=== PATIENT | male | born 1935 | race Caucasian/White ===

== ENCOUNTER 2018-09-29 11:40 | Inpatient (IN) ==
[2018-09-29] MEDS ORDERED: SODIUM CHLORIDE 0.9% 500 ML IV STA (12:05)
[2018-09-29 12:28] LABS: Basophils # (auto) 0.01 K/uL (0-0.2); Eosinophils # (auto) 0.02 K/uL (0-0.5); Eosinophils % (auto) 0.1 %; Hematocrit (blood only) 36.6 % (42-52); Hemoglobin 12.6 g/dL (14.0-18.0); Immature Granulocytes # (auto) 0.09 K/uL (0.00-0.02); Immature Granulocytes % (auto) 0.4 %; Lymphocytes # (auto) 1.27 K/uL (1.2-3.4); Lymphocytes % (auto) 6.1 %; Mean Corpuscular Hgb Conc 34.4 g/dL (32-36); Mean Corpuscular Volume 90.1 fL (80-100); Monocytes # (auto) 1.13 K/uL (0.11-0.59); Monocytes % (auto) 5.4 %; Neutrophils # (auto) 18.23 K/uL (1.4-6.5); Platelet Count 196 K/uL (130-400); RDW Coefficient of Variation 13.5 % (11.5-14.5); RDW Standard Deviation 44.8 fL (36.4-46.3); Red Blood Count 4.06 M/uL (4.7-6.1); White Blood Count 20.75 K/uL (4.8-10.8)
[2018-09-29 12:42] LABS: BUN Creatinine Ratio 20.5 (10-20); Calcium 10.5 mg/dl (8.5-10.1); Est GFR (Non-African American) 31.1; Potassium 4.4 mmol/L (3.5-5.1)
[2018-09-29 12:48] LABS: Appearance Urine Turbid (Clear); Bacteria Urine Automated Negative (Negative); Bilirubin Urine Negative (Negative); Blood Urine 3+ (Negative); Color Urine Dark Yellow; Epithelial Cell Urine Auto 20-30 /lpf (0-5); Glucose Urine UA Trace (Negative); Ketones Urine Trace (Negative); Leukocyte Esterase Urine 3+ (Negative); Nitrite Urine Positive (Negative); Protein Urine 2+ (Negative); Urobilinogen Urine Negative (Negative); WBC Urine Automated >30 /hpf (0-5)
--- NOTE | 2018-09-29 13:05 | Emergency Department Note ---
Entered by Bal Wyman acting as a scribe for Nnamdi Andrews DO History of Present Illness General Chief complaint: Kidney Stone Stated complaint: KIDNEY INFECTION OR STONE/ DR REFERRAL Time Seen by Provider: 09/29/18 12:18 Source: patient History of Present Illness Onset (ago): day(s) 3 Location: right (abdomen/back) Pain Consistency: + now resolved (pain) Quality: + other (hematuria) Associated symptoms: + nausea/vomiting (resolved) and + shortness of breath (resolved); no chest pain and no fever/chills The patient is an 83 year old male who presents to the Emergency Room after referral from his PCP for hematuria. The patient reports that three days ago he developed right-sided abdominal/back pain, and he vomited. This morning he also was slightly short of breath, but his pain, vomiting, and shortness of breath are now resolved. He was sent to the ER today by his [facility] PCP due to hem aturia in the office with brown-appearing urine. He denies chest pain or fevers above 100.4. The patient reports a history of multiple hernia repair surgeries. Home Medications Home Medications Medication Instructions Recorded Confirmed Type aspirin-dipyridamole [Aggrenox] 1 cap PO BID 09/29/18 09/29/18 History atenolol 25 mg PO DAILY 09/29/18 09/29/18 History atorvastatin 10 mg PO HS 09/29/18 09/29/18 History fluticasone propion-salmeterol 1 puff INHALATION BID 09/29/18 09/29/18 History [Advair Diskus] furosemide 40 mg PO DAILY 09/29/18 09/29/18 History lisinopril 2.5 mg PO DAILY 09/29/18 09/29/18 History metformin 500 mg PO BID 09/29/18 09/29/18 History multivitamin 1 tab PO DAILY 09/29/18 09/29/18 History potassium chloride [Klor-Con M10] 10 meq PO BID 09/29/18 09/29/18 History Allergies Allergy/AdvReac Type Severity Reaction Status Date / Time No Known Allergies Allergy Verified 09/29/18 11:58 Past Med/Surg History Medical History Hypertension Surgical History History of hernia repair Family History Other Family history non-contributory Social History Feels Safe at Home: Yes Smoking Status: Never smoker Review of Systems See HPI for pertinent positives & negatives. and A total of 10 systems reviewed and were otherwise negative Physical Exam Vital Signs Vital Signs - 24 hr 09/29/18 11:45 09/29/18 13:40 Temperature 36.5 C Temperature Source Oral Sepsis Recent Fever Within 48 Hours No Sepsis New/Unexplained Change in Mental Status No Sepsis Action Taken by Nursing No Action Required Pulse Rate 80 Pulse Rate [Finger] 58 L Respiratory Rate 16 18 Blood Pressure 120/63 Blood Pressure [Left Arm] 130/70 Blood Pressure Mean 82 Blood Pressure Mean [Left Arm] 90 Pulse Oximetry 94 92 Oxygen Delivery Method Room Air Room Air CONSTITUTIONAL/VITAL SIGNS: Reviewed / noted above. GENERAL: Non-toxic in appearance. INTEGUMENTARY: Warm, dry, and [place]. HEAD: Normocephalic. EYES: without scleral icterus or trauma. ENT/OROPHARYNX: clear and moist. LYMPHADENOPATHY/NECK: Is supple without lymphadenopathy or meningismus. RESPIRATORY: Lungs clear and equal. CARDIOVASCULAR: Regular rate and rhythm. GI/ABDOMEN: Soft and nontender. No organomegaly or pulsatile mass. No rebound or guarding. Normal bowel sounds. EXTREMITIES: Warm and well perfused. BACK: No CVA tenderness. NEUROLOGICAL: Intact without focal deficits. PSYCHIATRIC: normal affect. MUSCULOSKELETAL: Normally developed with good muscle tone. Course 1221: The patient was evaluated in room C12B. A complete history and physical examination were performed. 1520: I updated the patient on current results. On repeat examination the patient is not tender to palpation of the RUQ. 1524: I consulted Mayela Martinez PA-C: [facility] Hospitalist. The patient will be reevaluated for hospitalization. Administered Medications Levofloxacin/Dextrose (Levaquin/D5w) 750 mg in 150 mls @ 100 mls/hr IV Q24H ONE Stop: 09/29/18 16:48 Last Admin: 09/29/18 15:36 Dose: 100 mls/hr Documented by: [id number] Discontinued Medications Sodium Chloride (Nss) 500 mls @ 999 mls/hr IV .Q31M STA Stop: 09/29/18 12:35 Last Infusion: 09/29/18 12:46 Dose: 0 mls/hr Documented by: [id number] Admin: 09/29/18 12:20 Dose: 999 mls/hr Documented by: [id number] Ceftriaxone Sodium (Rocephin) 1,000 mg in 50 mls @ 100 mls/hr IV NOW STA Stop: 09/29/18 13:35 Last Infusion: 09/29/18 13:57 Dose: 0 mls/hr Documented by: [id number] Admin: 09/29/18 13:24 Dose: 100 mls/hr Documented by: [id number] Medical Decision Making Differential Diagnosis Differential considered: pancreatitis, hepatitis, or acute cholecystitis, AAA, UTI, pyelonephritis, kidney stones, appendicitis, diverticulitis, shingles, bowel obstruction mesenteric ischemia, intussusception, hernia, testicular torsion. Medical Records Attestation: I reviewed the patient's medical records. Home Medications Current Medication List: was personally reviewed by me Laboratory Data Attestation: I reviewed the patient's lab results. Result diagrams: 09/29/18 12:17 09/29/18 12:17 Lab Results 09/29/18 09/29/18 09/29/18 Range/Units 12:10 12:17 12:17 WBC 20.75 H (4.8-10.8) K/uL RBC 4.06 L (4.7-6.1) M/uL Hgb 12.6 L (14.0-18.0) g/dL Hct 36.6 L (42-52) % MCV 90.1 (80-100) fL MCH 31.0 (25-34) pg MCHC 34.4 (32-36) g/dL RDW Std Deviation 44.8 (36.4-46.3) fL RDW Coeff of Belkys 13.5 (11.5-14.5) % Plt Count 196 (130-400) K/uL MPV 11.0 H (7.4-10.4) fL Immature Gran % (Auto) 0.4 % Neut % (Auto) 88.0 % Lymph % (Auto) 6.1 % Emanuel % (Auto) 5.4 % Eos % (Auto) 0.1 % Baso % (Auto) 0.0 % Immature Gran # (Auto) 0.09 H (0.00-0.02) K/uL Neut # (Auto) 18.23 H (1.4-6.5) K/uL Lymph # (Auto) 1.27 (1.2-3.4) K/uL Emanuel # (Auto) 1.13 H (0.11-0.59) K/uL Eos # (Auto) 0.02 (0-0.5) K/uL Baso # (Auto) 0.01 (0-0.2) K/uL Sodium 136 (136-145) mmol/L Potassium 4.4 (3.5-5.1) mmol/L Chloride 105 (98-107) mmol/L Carbon Dioxide 25 (21-32) mmol/L Anion Gap 6.0 (3-11) BUN 39 H (7-18) mg/dl Creatinine 1.92 H (0.6-1.4) mg/dl Est Cr Clr Drug Dosing 30.0 ml/min Est GFR ( Amer) 36.0 Est GFR (Non-Af Amer) 31.1 BUN/Creatinine Ratio 20.5 H (10-20) Glucose 224 H (70-99) mg/dl Calcium 10.5 H (8.5-10.1) mg/dl Urine Color Dark Yellow Urine Appearance Turbid H (Clear) Urine pH 5.0 (4.5-7.5) Ur Specific [place] 1.020 (1.000-1.030) Urine Protein 2+ H (Negative) Urine Glucose (UA) Trace H (Negative) Urine Ketones Trace H (Negative) Urine Blood 3+ H (Negative) Urine Nitrite Positive H (Negative) Urine Bilirubin Negative (Negative) Urine Urobilinogen Negative (Negative) Ur Leukocyte Esterase 3+ H (Negative) Urine WBC (Auto) >30 H (0-5) /hpf Urine RBC (Auto) 10-30 H (0-4) /hpf U Hyaline Cast (Auto) Not Reportable U Epithel Cells (Auto) 20-30 H (0-5) /lpf Urine Bacteria (Auto) Negative (Negative) Granular Casts >30 H (0) /lpf Urine Mucus Present H (None Prsent) Urine Yeast Not Reportable Imaging Data Radiologist's Impression: Radiology results as stated below per my review and the radiologist's interpretation: CT SCAN OF THE ABDOMEN AND PELVIS WITHOUT IV CONTRAST CLINICAL HISTORY: Right flank pain. COMPARISON STUDY: Abdominal CT dated 12/13/2015. TECHNIQUE: CT scan of the abdomen and pelvis is performed from the lung bases to the proximal femora. Images are reviewed in the axial, sagittal, and coronal planes. IV contrast was not administered for this examination as per the referring clinician. Note that the examination was performed in suboptimal fashion without oral and IV contrast. A dose lowering technique was utilized adhering to the principles of ALARA. CT DOSE: 405.66 mGy.cm FINDINGS: Lung bases: The heart is enlarged and without pericardial effusion. The coronary arteries are densely calcified. 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 Emphysema is suspected. There is bibasilar scarring/atelectasis. No airspace consolidation or pleural effusion is identified. Calcified granulomas are seen at the left lung base. There is a small hiatal hernia. Liver: The unenhanced liver is cirrhotic in morphology and heterogeneous in attenuation. There is nodularity of the hepatic surface contour. There is no intrahepatic biliary ductal dilatation. Gallbladder: The gallbladder is markedly distended. The gallbladder wall is mildly thickened and there is faint pericholecystic stranding. The appearance is concerning for acute cholecystitis. Spleen: Normal in size and attenuation. Pancreas: The unenhanced pancreas is atrophic. There are numerous parenchymal calcifications consistent with chronic pancreatitis. A 7 mm calcifications. #143 is likely located within the pancreatic duct. Adrenal glands: Unremarkable. Kidneys: A portion of the right kidney is contained within a Bochdalek hernia. The unenhanced kidneys demonstrate cortical atrophy. There is mild to moderate right-sided hydronephrosis. There is associated urothelial thickening and perinephric stranding. The right ureter is normal in caliber and no obstructing lesion/stone is identified. There are no renal calculi identified. No left-sided hydronephrosis is identified. There is no evidence of contour deforming renal mass lesion. Abdominal vasculature: The abdominal aorta is normal in course and caliber noting advanced atherosclerotic calcification. Bowel: There is mild colonic diverticulosis without CT evidence of acute diverticulitis. Fecal retention is noted throughout the colon. No bowel obstruction is seen. Bowel loops are matted against the ventral abdominal wall, likely representing adhesions. The appendix is well-visualized and normal. Peritoneum: There is no intraperitoneal free air or abdominal ascites. There is evidence of previous ventral hernia repair. There is a large fat-containing left lumbar hernia. Lymphadenopathy: There are numerous prominent retroperitoneal lymph nodes. Pelvic viscera: The prostate gland is diminutive and heterogeneous. The bladder wall is circumferentially thickened and there is mild pericystic stranding. Postoperative changes consistent with previous right inguinal herniorrhaphy. Skeletal structures: The skeletal structures are osteopenic. Moderate lumbosacral spondylosis is observed. Arthritic change is noted in the hips and sacroiliac joints. No lytic or blastic lesions are seen. IMPRESSION: 1. The gallbladder is distended. The gallbladder wall appears thickened and there is pericholecystic stranding. The appearance is concerning for acute cholecystitis. Clinical and laboratory correlation will be required. Ultrasound could be considered for further assessment if clinically warranted. 2. The bladder is circumferentially thick-walled and there is pericystic inflammation. Correlate clinically and with urinalysis for evidence of cystitis. 3. There is mild to moderate right-sided hydronephrosis, with associated urothelial thickening and perinephric stranding. No obstructing lesion/calculus is identified. Ascending urinary tract infection/pyelonephritis could have this appearance. Again, correlation with clinical findings and urinalysis will be required. 4. Cirrhotic liver morphology. 5. Findings are consistent with chronic pancreatitis. 6. 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 7. There is a large fat-containing left-sided lumbar hernia. 8. Mild colonic diverticulosis without CT evidence of acute diverticulitis. 9. Additional findings as above. Electronically signed by: Joselito Caldwell M.D. 09/29/2018 1:12 PM XR chest 1V portable CLINICAL HISTORY: transient sob dyspnea COMPARISON STUDY: 12/27/2015 FINDINGS: Parenchymal infiltrate right base. Lungs otherwise are considered clear. Diaphragms are smooth. IMPRESSION: Parenchymal infiltrate right base. Repeat imaging to ensure complete resolution is recommended. The above report was generated using voice recognition software. It may contain grammatical, syntax or spelling errors. Electronically signed by: Kevin Younger M.D. 09/29/2018 1:22 PM Blood Pressure Blood Pressure Findings: Normal blood pressure Blood Pressure Disposition: did not require urgent referral MDM Narrative This is an 83-year-old male who presents to the ED with a chief complaint of hematuria. The patient reports that he had some right-sided abdominal pain that radiated into his right flank on Saturday. This has subsided. He went to his PCP today and was found to have hematuria. He also has some weakness and the daughter stated that he had a little shortness of breath this morning. He currently denies shortness of breath. His daughter also reports that he has been sleeping more than usual. His physical exam was relatively unremarkable other than chronic age-related issues. There was no CVA tenderness and no abdominal tenderness on exam. His white blood cell count was 20.75. Hemoglobin is 12.6. BUN is 39 and creatinine is 1.92. Glucose is 224. Urine is suggestive of a UTI. CT scan of the abdomen pelvis reveals findings concerning for cystitis as well as pyelonephritis on the right. This is consistent with the patient's symptoms. They also stated there might be a cholecystitis. The patient does not have any abdominal tenderness in the right upper quadrant on exam and did not present with symptoms concerning for this. Chest x-ray was reporting a right base infiltrate. The patient was given IV Rocephin, IV fluids and IV Levaquin. The patient was seen by the hospitalist for further inpatient evaluation and care. Impression & Plan Pyelonephritis, Renal insufficiency The scribe's documentation has been prepared under my direction and personally r eviewed by me in its entirety. I confirm that the note above accurately reflects all work, treatment, procedures, and medical decision making performed by me.
[2018-09-29] MEDS ORDERED: cefTRIAXone SODIUM 1,000 MG/50 ML BAG IV STA (13:06)
--- NOTE | 2018-09-29 13:14 | CT Scan Report ---
CT SCAN OF THE ABDOMEN AND PELVIS WITHOUT IV CONTRAST CLINICAL HISTORY: Right flank pain. COMPARISON STUDY: Abdominal CT dated 12/13/2015. TECHNIQUE: CT scan of the abdomen and pelvis is performed from the lung bases to the proximal femora. Images are reviewed in the axial, sagittal, and coronal planes. IV contrast was not administered for this examination as per the referring clinician. Note that the examination was performed in suboptim al fashion without oral and IV contrast. A dose lowering technique was utilized adhering to the princ iplbrett of NGUYEN. CT DOSE: 405.66 mGy.cm FINDINGS: Lung bases: The heart is enlarged and without pericardial effusion. The coronary arteries are densely calcified. There is a large fat-containing Bochdalek hernia at the right lung base with associated a telectasis. Emphysema is suspected. There is bibasilar scarring/atelectasis. No airspace consolidatio n or pleural effusion is identified. Calcified granulomas are seen at the left lung base. There is a small hiatal hernia. Liver: The unenhanced liver is cirrhotic in morphology and heterogeneous in attenuation. There is nod ularity of the hepatic surface contour. There is no intrahepatic biliary ductal dilatation. Gallbladder: The gallbladder is markedly distended. The gallbladder wall is mildly thickened and ther e is faint pericholecystic stranding. The appearance is concerning for acute cholecystitis. Spleen: Normal in size and attenuation. Pancreas: The unenhanced pancreas is atrophic. There are numerous parenchymal calcifications consiste nt with chronic pancreatitis. A 7 mm calcifications. #143 is likely located within the pancreatic burke t. Adrenal glands: Unremarkable. Kidneys: A portion of the right kidney is contained within a Bochdalek hernia. The unenhanced kidneys demonstrate cortical atrophy. There is mild to moderate right-sided hydronephrosis. There is associa angeli urothelial thickening and perinephric stranding. The right ureter is normal in caliber and no obs tructing lesion/stone is identified. There are no renal calculi identified. No left-sided hydronephro sis is identified. There is no evidence of contour deforming renal mass lesion. Abdominal vasculature: The abdominal aorta is normal in course and caliber noting advanced atheroscle rotic calcification. Bowel: There is mild colonic diverticulosis without CT evidence of acute diverticulitis. Fecal retent ion is noted throughout the colon. No bowel obstruction is seen. Bowel loops are matted against the v entral abdominal wall, likely representing adhesions. The appendix is well-visualized and normal. Peritoneum: There is no intraperitoneal free air or abdominal ascites. There is evidence of previous ventral hernia repair. There is a large fat-containing left lumbar hernia. Lymphadenopathy: There are numerous prominent retroperitoneal lymph nodes. Pelvic viscera: The prostate gland is diminutive and heterogeneous. The bladder wall is circumferenti ally thickened and there is mild pericystic stranding. Postoperative changes consistent with previous right inguinal herniorrhaphy. Skeletal structures: The skeletal structures are osteopenic. Moderate lumbosacral spondylosis is obse rved. Arthritic change is noted in the hips and sacroiliac joints. No lytic or blastic lesions are se en. IMPRESSION: 1. The gallbladder is distended. The gallbladder wall appears thickened and there is pericholecystic stranding. The appearance is concerning for acute cholecystitis. Clinical and laboratory correlation will be required. Ultrasound could be considered for further assessment if clinically warranted. 2. The bladder is circumferentially thick-walled and there is pericystic inflammation. Correlate clin ically and with urinalysis for evidence of cystitis. 3. There is mild to moderate right-sided hydronephrosis, with associated urothelial thickening and pe rinephric stranding. No obstructing lesion/calculus is identified. Ascending urinary tract infection/ pyelonephritis could have this appearance. Again, correlation with clinical findings and urinalysis w ill be required. 4. Cirrhotic liver morphology. 5. Findings are consistent with chronic pancreatitis. 6. There is a large fat-containing Bochdalek hernia at the right lung base which also contains a port ion of the right kidney. 7. There is a large fat-containing left-sided lumbar hernia. 8. Mild colonic diverticulosis without CT evidence of acute diverticulitis. 9. Additional findings as above. Electronically signed by: Joselito Caldwell M.D. 09/29/2018 1:12 PM
[2018-09-29 13:17] LABS: Granular Casts Urine >30 /lpf (0)
[2018-09-29 13:18] LABS: Mucus Urine Present (None Prsent)
--- NOTE | 2018-09-29 13:23 | XRay Report ---
XR chest 1V portable CLINICAL HISTORY: transient sob dyspnea COMPARISON STUDY: 12/27/2015 FINDINGS: Parenchymal infiltrate right base. Lungs otherwise are considered clear. Diaphragms are smo oth. IMPRESSION: Parenchymal infiltrate right base. Repeat imaging to ensure complete resolution is recom mended. The above report was generated using voice recognition software. It may contain grammatical, syntax or spelling errors. Electronically signed by: Kevin Younger M.D. 09/29/2018 1:22 PM
[2018-09-29] MEDS ORDERED: LEVOFLOXACIN/D5W 750 MG/150 ML BAG IV ONE (15:19)
--- NOTE | 2018-09-29 16:36 | History & Physical Report ---
Date of Service September 29, 2018 Assessment & Plan (1) Pyelonephritis: This is an 83-year-old male with a PMH of DM II, HTN, HLD, CKD III, COPD and iron deficiency anemia who presents with weakness and chills x 4 days and was found to have acute pyelonephritis and acute kidney injury. -Afebrile, leukocytosis of 20.75. Non-toxic appearance, vital signs stable -CT abdomen/pelvis with pericystic inflammation, mild to moderate right-sided hydronephrosis with urothelial thickening and perinephric stranding consistent with pyelonephritis -UA with evidence of infection and 3+ urine blood, urine culture pending -Given dose of Rocephin x 1 in ED. Will continue coverage with Zosyn, to also cover for possible PNA -Bladder scan PRN. Consider urology consult if no clinical improvement -Gentle IV fluids (2) Acute kidney injury superimposed on chronic kidney disease: Cr elevated at 1.91 (baseline ~1.2-1.4), has CKD III at baseline -In setting of poor PO intake, infection -Gentle IV fluids, hold lisinopril and lasix -Repeat BMP in AM (3) Abnormal gall bladder diagnostic imaging: CT abd/pelvis with evidence of gallbladder distention and cindy-cholecystic stranding concerning for cholecystitis -Unremarkable abdominal exam -Discussed with Dr. Loaiza of general surgery. Will order LFTs, lipase. NPO for HIDA scan in AM (4) Abnormal CXR: CXR with evidence of infiltrate at R base -Given empiric dose of Levaquin in ED -H/o URI 4 months ago, continues to have intermittent cough -No productive sputum, wheezing or SOB. O2 saturation 99% on RA -Receiving Zosyn, follow blood and sputum cultures (5) Diabetes mellitus, type II: A1c of 7.9 in August 2018 -Hold home metformin -SSI while in-patient -BSG AC HS (6) Hypertension: Normotensive -Continue atenolol -Holding Lisinopril, Lasix in setting of ELVIN (7) COPD (chronic obstructive pulmonary disease): Continue Advair, Albuterol PRN (8) SUNDAY (iron deficiency anemia): Hgb of 12.6 (baseline hgb 12-13) -Has not been taking iron supplement due to constipation -Encouraged to restart, will also add Colace 100mg daily, PRN Miralax (9) HLD (hyperlipidemia): Continue statin DVT Ppx: SCDs in setting of hematuria Code status: FULL per discussion with patient PCP: Radha Dispo: Admitted to [facility]. Discharge planning ordered (83yo and lives alone). PT/OT evaluations ordered. Patient seen in collaboration with Dr. Farley. Please see addendum. History of Present Illness Chief Complaint: R flank pain, chills, weakness Primary Care Provider: Noreen Garcia DO This is an 83-year-old male with a PMH of DM II, HTN, HLD, CKD III, COPD and iron deficiency anemia who presents with weakness and chills x 4 days. On Saturday, patient developed right-sided flank pain that was sharp in nature with radiation to back. Also endorsed one episode of vomiting, dysuria, chills and generalized weakness. Right flank pain subsided over the weekend but patient continued to feel weak and fatigued, sleeping most of the day. + Low grade fever. Endorses decreased p.o. intake. Daughter took patient to PCP today and UA showed evidence of hematuria as well as infection. Patient was directed to come to ED for further evaluation. Found to be hemodynamically stable and afebrile. Leukocytosis of 20.75. UA with evidence of infection. CXR with evidence of infiltrate at R base. Daughter states patient had a cold back in the winter and has had intermittent cough but patient denies productive sputum, wheezing or shortness of breath. CT abdomen/pelvis with pericystic inflammation, mild to moderate right-sided hydronephrosis with urothelial thickening and perinephric stranding consistent with pyelonephritis. Also with gallbladder distention and cindy-cholecystic stranding concerning for cholecystitis. Denies any abdominal pain, flank pain or CVA tenderness. No longer experiencing dysuria. Hematuria noted in PCPs office. Patient lives alone with daughter living only a mile away. Allergies Allergy/AdvReac Type Severity Reaction Status Date / Time No Known Allergies Allergy Verified 09/29/18 11:58 Home Medications Home Medications Medication Instructions Recorded Confirmed Type albuterol sulfate [ProAir HFA] 2 puff INHALATION QID PRN 09/29/18 09/29/18 History aspirin-dipyridamole [Aggrenox] 1 cap PO BID 09/29/18 09/29/18 History atenolol 25 mg PO DAILY 09/29/18 09/29/18 History atorvastatin 10 mg PO DAILY 09/29/18 09/29/18 History ferrous sulfate 1 tab PO DAILY 09/29/18 09/29/18 History fluticasone propion-salmeterol 1 puff INHALATION BID 09/29/18 09/29/18 History [Advair Diskus] furosemide 40 mg PO DAILY 09/29/18 09/29/18 History lisinopril 2.5 mg PO DAILY 09/29/18 09/29/18 History metformin 500 mg PO BID 09/29/18 09/29/18 History multivitamin 1 tab PO DAILY 09/29/18 09/29/18 History potassium chloride [Klor-Con M10] 10 meq PO BID 09/29/18 09/29/18 History Past Med/Surg History Medical History SUNDAY (iron deficiency anemia) (Chronic) CKD (chronic kidney disease), stage III (Chronic) COPD (chronic obstructive pulmonary disease) (Chronic) HLD (hyperlipidemia) (Chronic) Diabetes mellitus, type II (Chronic) Hypertension (Chronic) Surgical History History of ankle surgery (Resolved) History of hernia repair (Resolved) Social History Preferred Language: Montenegrin Communication Ability: Effective Computer Game Designer Required: No Beliefs That Will Affect Care: None Current Living Situation: Alone Other Information That Helps Us Care for You: No Feels Safe at Home: Yes Safety Concerns: Feels Safe At This Time Smoking Status: Former smoker Do You Dip or Chew Tobacco: No Second Hand Exposure: No Tobacco Cessation Education Requested by Patient: No Hx Alcohol Use: No Hx Substance Use: No Review of Systems Review of Systems: At least ten systems reviewed and negative except as noted in the HPI. Physical Exam Physical Exam: General Appearance: WD/WN, no apparent distress, resting comfortably Head: normocephalic, atraumatic Eyes: normal inspection, PERRL, EOMI ENT: hard of hearing, pharynx normal (dry mucous membranes) Neck: supple, no JVD, no adenopathy Respiratory/Chest: lungs clear to auscultation. No wheezes, rales or rhonci. No respiratory distress or accessory muscle use Cardiovascular: regular rate, rhythm, no murmur, normal peripheral pulses Abdomen/GI: normal bowel sounds, soft, non-tender to palpation, negative Moore's sign Back: No deformities, no vertebral body tenderness to palpation, no CVA tenderness Extremities/Musculoskelatal: normal inspection, no calf tenderness, normal capillary refill, trace pedal edema L>R Neurologic/Psych: alert, normal mood/affect, oriented x 3 Skin: normal color, warm/dry Results & Data Vital Signs (Past 12 Hours) Vital Signs Temp Pulse Pulse Resp BP BP Pulse Ox 09/29/18 15:30 60 18 168/58 H 92 09/29/18 13:40 58 L 18 130/70 92 09/29/18 11:45 36.5 C 80 16 120/63 94 Laboratory Results Short CBC 09/29/18 Range/Units 12:17 WBC 20.75 H (4.8-10.8) K/uL Hgb 12.6 L (14.0-18.0) g/dL Hct 36.6 L (42-52) % Plt Count 196 (130-400) K/uL BMP 09/29/18 12:17 Sodium 136 Potassium 4.4 Chloride 105 Carbon Dioxide 25 BUN 39 H Creatinine 1.92 H Glucose 224 H Calcium 10.5 H Urine 09/29/18 Range/Units 12:10 Urine Color Dark Yellow Urine Appearance Turbid H (Clear) Urine pH 5.0 (4.5-7.5) Ur Specific [place] 1.020 (1.000-1.030) Urine Protein 2+ H (Negative) Urine Glucose (UA) Trace H (Negative) Diagnostic Findings CXR: IMPRESSION: Parenchymal infiltrate right base. Repeat imaging to ensure complete resolution is recommended. CT abd/pelvis: IMPRESSION: 1. The gallbladder is distended. The gallbladder wall appears thickened and there is pericholecystic stranding. The appearance is concerning for acute cholecystitis. Clinical and laboratory correlation will be required. Ultrasound could be considered for further assessment if clinically warranted. 2. The bladder is circumferentially thick-walled and there is pericystic inflammation. Correlate clinically and with urinalysis for evidence of cystitis. 3. There is mild to moderate right-sided hydronephrosis, with associated urothelial thickening and perinephric stranding. No obstructing lesion/calculus is identified. Ascending urinary tract infection/pyelonephritis could have this appearance. Again, correlation with clinical findings and urinalysis will be required. 4. Cirrhotic liver morphology. 5. Findings are consistent with chronic pancreatitis. 6. 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 7. There is a large fat-containing left-sided lumbar hernia. 8. Mild colonic diverticulosis without CT evidence of acute diverticulitis. Supervising Physician Co-Signing Physician Notes I have seen and examined the patient and have discussed the case with the provider above. I agree with the assessment and plan as stated with the following exceptions. Mr. Farooq is in NAD but reports persistent R flank and groin pain. Physical exam reveals a [place] man who is elderly but WNWD. Mucous membranes are moist, lung and heart exam is normal. Abdomen is soft and not TTP. There is CVA tenderness on the R. Skin is warm and dry. He otherwise denies any cough, fevers, or chills to me now. He is a poor historian and appears to have poor insight into disease process stating that his daughter brought him to the ER because she was concerned based on his pain Saturday, not anything going on today. Zosyn to cover likely uro and pulm pathogens. Doubt MRSA as low risk so did not add Vancomycin empirically. Flu is negative. LFTs are normal. ELVIN present but notably pt has been using 220mg PO q6hrs for the past few days for pain. Cont plan as above. Added heparin for DVT prophy as no gross hematuria present. DO Miguelito
[2018-09-29 17:25] LABS: Influenza A virus by PCR Neg for Influ A (Neg); Influenza B virus by PCR Neg for Influ B (Neg)
[2018-09-29] MEDS ORDERED: GLUCOSE 40% GEL 15 GM TUBE PO PRN (17:32)
[2018-09-29] MEDS ORDERED: ACETAMINOPHEN 325 MG TAB PO PRN (17:32)
[2018-09-29] MEDS ORDERED: GLUCOSE 10 TABS/TUBE PO PRN (17:32)
[2018-09-29] MEDS ORDERED: DEXTROSE 50% 50 ML SYRINGE IV PRN (17:32)
[2018-09-29] MEDS ORDERED: POLYETHYLENE (MIRALAX) 17 GM PACK PO PRN (17:32)
[2018-09-29] MEDS ORDERED: GLUCAGON FOR INJ 1 MG VIAL SQ PRN (17:32)
[2018-09-29] MEDS ORDERED: CARBOHYDRATES FOR HYPOGLYCEMIA PO PRN (17:32)
[2018-09-29] MEDS ORDERED: ALBUTEROL HFA 8 GM INHALER INH PRN (17:32)
[2018-09-29] MEDS ORDERED: PIPERACILL/TAZOBAC CONSULT ACTIVE PRN (17:42)
[2018-09-29] MEDS: SODIUM CHLORIDE 0.9% 1000ML 1,000 ML IV SCH (17:57)
[2018-09-29] MEDS ORDERED: PIPERACILLIN/TAZOBACTAM 3.375 GM in DEXTROSE 5% 100 ML IV ONE (18:00)
--- NOTE | 2018-09-29 18:20 | Surgery Consultation ---
Date of Consultation September 29, 2018 Assessment & Plan (1) Abnormal gall bladder diagnostic imaging: Currently patient appears to be asymptomatic with respect to acute cholecystitis. We will check his liver function and his lipase and also order a HIDA scan for the morning. I doubt he will require cholecystectomy however we will follow him closely. His daughter is at the bedside and I have discussed the plan with her. History of Present Illness Attending Physician: Gin Reyes MD History of Present Illness 83-year-old man admitted to the emergency room with weakness and chills, no nausea or vomiting no complaint of significant abdominal pain. He apparently does have some discomfort in the right flank into the lower abdomen area but not acute. He is found to have pyelonephritis and also CT scan distended gallbladder with mild thickening. He also has findings of chronic pancreatitis and cirrhosis. Currently he is being treated for the pyelonephritis on IV antibiotic. Allergies Allergy/AdvReac Type Severity Reaction Status Date / Time No Known Allergies Allergy Verified 09/29/18 11:58 Home Medications Home Medications Medication Instructions Recorded Confirmed Type albuterol sulfate [ProAir HFA] 2 puff INHALATION QID PRN 09/29/18 09/29/18 History aspirin-dipyridamole [Aggrenox] 1 cap PO BID 09/29/18 09/29/18 History atenolol 25 mg PO DAILY 09/29/18 09/29/18 History atorvastatin 10 mg PO DAILY 09/29/18 09/29/18 History ferrous sulfate 1 tab PO DAILY 09/29/18 09/29/18 History fluticasone propion-salmeterol 1 puff INHALATION BID 09/29/18 09/29/18 History [Advair Diskus] furosemide 40 mg PO DAILY 09/29/18 09/29/18 History lisinopril 2.5 mg PO DAILY 09/29/18 09/29/18 History metformin 500 mg PO BID 09/29/18 09/29/18 History multivitamin 1 tab PO DAILY 09/29/18 09/29/18 History potassium chloride [Klor-Con M10] 10 meq PO BID 09/29/18 09/29/18 History Patient History Medical History SUNDAY (iron deficiency anemia) (Chronic) CKD (chronic kidney disease), stage III (Chronic) COPD (chronic obstructive pulmonary disease) (Chronic) HLD (hyperlipidemia) (Chronic) Diabetes mellitus, type II (Chronic) Hypertension (Chronic) Surgical History History of ankle surgery (Resolved) History of hernia repair (Resolved) Social History Feels Safe at Home: Yes Smoking Status: Former smoker Hx Alcohol Use: No Review of Systems Review of Systems: All systems reviewed & are unremarkable except as noted in HPI & below Physical Exam Physical Exam: Patient currently is sitting inside his bed is in no distress he is awake and alert no signs are stable sclera are anicteric head atraumatic neck is supple. He shows no signs of respiratory distress his heart rate is regular his abdomen is soft with no significant tenderness. Tremors are warm and dry and well-perfused. Results & Data Vital Signs (Past 12 Hours) Vital Signs Temp Pulse Pulse Resp BP BP Pulse Ox 09/29/18 17:16 37.5 C 82 18 155/72 H 94 09/29/18 17:05 60 18 136/64 99 09/29/18 15:30 60 18 168/58 H 92 09/29/18 13:40 58 L 18 130/70 92 09/29/18 11:45 36.5 C 80 16 120/63 94 I did review his CAT scan
[2018-09-29] MEDS: DOCUSATE SODIUM 100 MG CAP PO SCH (18:47)
[2018-09-29 19:15] LABS: Albumin Globulin Ratio 0.6 (0.9-2); Albumin Level 2.5 gm/dl (3.4-5.0); BUN Creatinine Ratio 20.7 (10-20); Bilirubin Direct 0.3 mg/dl (0-0.2); Bilirubin,Total 0.4 mg/dl (0.2-1); Calcium 9.5 mg/dl (8.5-10.1); Creatinine Clr Calc Pharmacy 33.8 ml/min; Est GFR (African American) 41.7; Globulin 4.4 gm/dl (2.5-4.0); Potassium 4.3 mmol/L (3.5-5.1); Total Protein 6.9 gm/dl (6.4-8.2)
[2018-09-29] MEDS ORDERED: INSULIN ASPART 100 UNITS/ML 3 ML PEN SC SCH (21:00)
[2018-09-29] MEDS: FLUTICASONE/SALMETEROL 100/50 (ADVAIR) 14 PUFF/1 INHALER INH SCH (21:25)
[2018-09-29] MEDS: INSULIN ASPART 100 UNITS/ML 3 ML PEN SC SCH (21:26)
--- OUTSIDE RECORDS SUMMARY | 2018-09-29 23:14 | External Medical Summary | Continuity of Care Document ---
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 Start: 14-Jun-2014 Refills: 0 metFORMIN HCl - 500 MG Oral Tablet; TAKE 1 TABLET TWICE MELLISA Y. Start: 14-Jun-2014 Refills: 0 Klor-Con 10 10 MEQ Oral Tablet Extended Release; TAKE 1 TABL ET TWICE DAILY. Start: 14-Jun-2014 Refills: 0 Atenolol 25 MG Oral Tablet; TAKE 1 TABLET DAILY. Start: 14-Jun-2014 Refills: 0 Lisinopril 2.5 MG Oral Tablet; TAKE 1 TABLET DAILY. Start: 14-Jun-2014 Refills: 0 Advair Diskus 100-50 MCG/DOSE Inhalation Aerosol Powder Breath Activated; INHALE 1 PUFFS Daily Start: 14-Jun-2014 Refills: 0 Multivital TABS; TAKE 1 TABLET EVERY 12 HOURS. Start: 14-Jun-2014 Refills: 0 Lotrimin AF 1 % External Cream; APPLY 2-3 TIMES DAILY TO AFF ECTED AREA(S). Start: 07-Dec-2015 Refills: 0 Senna 8.6 MG Oral Capsule; 2 per day Sta rt: 07-Dec-2015 Refills: 0 Omeprazole 20 MG Oral Capsule Delayed Release; TAKE 1 CAPSUL E DAILY. Start: 07-Dec-2015 Refills: 0 Procedures History of Hernia Repair Status: [facility] ed History of Ankle Surgery Status: [facility] ed History of Incarcerated Umbilical Hernia Repair Status: Completed For Person Over Age 5 History of Ventral Hernia Repair Status: Completed History of Incisional Hernia Repair - Recurrent Status: Completed 12-Jan-2016 0:00 Immunizations Immunizations not documented Family History Father Family history of cerebrovascular accident (V17.1) (Z82.3) S tatus: Active Social History - Smoking Status Former smoker Plan of Treatment Planned Observations Planned Goals not documented Results No Known Results Results not documented Encounters Appointment; Davidson Everett M.D. 15-Feb-2016 8:40 Encounter Diagnosis: Problem not documented
[2018-09-30] MEDS: PIPERACILLIN/TAZOBACTAM 3.375 GM in DEXTROSE 5% 100 ML IV SCH ×3 (00:59→16:30)
[2018-09-30 06:09] LABS: Hemoglobin 11.8 g/dL (14.0-18.0); Mean Corpuscular Hgb Conc 34.7 g/dL (32-36); Mean Corpuscular Volume 88.5 fL (80-100); Mean Platelet Volume 10.7 fL (7.4-10.4); Platelet Count 170 K/uL (130-400); RDW Coefficient of Variation 13.4 % (11.5-14.5); RDW Standard Deviation 43.3 fL (36.4-46.3); Red Blood Count 3.84 M/uL (4.7-6.1); White Blood Count 15.15 K/uL (4.8-10.8)
[2018-09-30 06:43] LABS: Albumin Level 2.2 gm/dl (3.4-5.0); BUN Creatinine Ratio 19.5 (10-20); Calcium 9.2 mg/dl (8.5-10.1); Creatinine Clr Calc Pharmacy 30.1 ml/min; Est GFR (African American) 44.2; Est GFR (Non-African American) 38.1; Potassium 3.7 mmol/L (3.5-5.1)
[2018-09-30 06:45] LABS: Albumin Globulin Ratio 0.5 (0.9-2); Bilirubin,Total 0.6 mg/dl (0.2-1); Globulin 4.1 gm/dl (2.5-4.0); Total Protein 6.3 gm/dl (6.4-8.2)
[2018-09-30 06:58] LABS: INR 1.1 (0.9-1.1); Prothrombin Time 11.3 Seconds (9.0-12.0)
[2018-09-30] MEDS: SODIUM CHLORIDE 0.9% 1000ML 1,000 ML IV SCH (07:54)
[2018-09-30] MEDS: INSULIN ASPART 100 UNITS/ML 3 ML PEN SC SCH ×4 (08:08→20:52)
[2018-09-30] MEDS: HEPARIN SOD 5,000 UNIT/0.5 ML VIAL SQ SCH ×3 (08:12→20:52)
[2018-09-30] MEDS: DOCUSATE SODIUM 100 MG CAP PO SCH (08:14)
[2018-09-30] MEDS: ATORVASTATIN 10 MG TAB PO SCH (08:15)
[2018-09-30] MEDS: MULTIVITAMIN TAB PO SCH (08:15)
[2018-09-30] MEDS: FERROUS SULFATE 325 MG TAB PO SCH (08:15)
[2018-09-30] MEDS: ATENOLOL 25 MG TABLET PO SCH (08:15)
[2018-09-30] MEDS: FLUTICASONE/SALMETEROL 100/50 (ADVAIR) 14 PUFF/1 INHALER INH SCH ×2 (08:15→20:52)
--- NOTE | 2018-09-30 12:01 | Nuclear Medicine Report ---
NUCLEAR HEPATOBILIARY SCAN CLINICAL HISTORY: Right-sided abdominal pain. Abnormal gallbladder seen by CT. COMPARISON STUDY: Abdominal CT dated 09/29/2018. TECHNIQUE: Dynamic images of the liver and anterior abdomen were obtained every 5 minutes for a total of 60 minutes following the IV administration of 5.4mCi of technetium 99m Choletec. Tracer was injec angeli into the right arm at 10:25. FINDINGS: The hepatobiliary scan shows prompt and homogeneous hepatic uptake. There is visualized act ivity within the intra and extrahepatic biliary tree at 10 minutes, and within the gallbladder at 15 minutes. There is normal biliary to bowel transit, with small bowel visualized by 25 minutes. IMPRESSION: Normal nuclear hepatobiliary scan. There is no scintigraphic evidence of cholecystitis. Electronically signed by: Joselito Caldwell M.D. 09/30/2018 12:00 PM
--- NOTE | 2018-09-30 13:03 | Hospitalist Progress Note ---
Date of Service September 30, 2018 Assessment & Plan (1) Pyelonephritis: This is an 83-year-old male with a PMH of DM II, HTN, HLD, CKD III, COPD and iron deficiency anemia who presents with weakness and chills x 4 days and was found to have acute pyelonephritis and acute kidney injury. -Afebrile, leukocytosis of 20.75. Non-toxic appearance, vital signs stable -CT abdomen/pelvis with pericystic inflammation, mild to moderate right-sided hydronephrosis with urothelial thickening and perinephric stranding consistent with pyelonephritis -UA with evidence of infection and 3+ urine blood, -urine culture -shows staph likely contaminant -Blood culture-pending -Given dose of Rocephin x 1 in ED. Will continue coverage with Zosyn, to also cover for possible PNA -Consider urology consult if no clinical improvement -Gentle IV fluids -Clinically better and will continue current medications (2) Acute kidney injury superimposed on chronic kidney disease: Cr elevated at 1.91 (baseline ~1.2-1.4), has CKD III at baseline -In setting of poor PO intake, infection -Gentle IV fluids, hold lisinopril and lasix -Creatinine has been improving (3) Abnormal gall bladder diagnostic imaging: CT abd/pelvis with evidence of gallbladder distention and cindy-cholecystic stranding concerning for cholecystitis -Unremarkable abdominal exam -Appreciate surgery input and recommendation -HIDA scan did not show any evidence of acute cholecystitis (4) Abnormal CXR: CXR with evidence of infiltrate at R base -Given empiric dose of Levaquin in ED -H/o URI 4 months ago, continues to have intermittent cough -No productive sputum, wheezing or SOB. O2 saturation 99% on RA -Receiving Zosyn, follow blood and sputum cultures -Doubt any pneumonia (5) Diabetes mellitus, type II: A1c of 7.9 in August 2018 -Hold home metformin -SSI while in-patient -BSG AC HS (6) Hypertension: Normotensive -Continue atenolol -Holding Lisinopril, Lasix in setting of ELVIN (7) COPD (chronic obstructive pulmonary disease): Continue Advair, Albuterol PRN No acute exacerbation (8) SUNDAY (iron deficiency anemia): Hgb of 12.6 (baseline hgb 12-13) -Has not been taking iron supplement due to constipation -Encouraged to restart, will also add Colace 100mg daily, PRN Miralax (9) HLD (hyperlipidemia): Continue statin DVT Ppx: SCDs in setting of hematuria Code status: FULL per discussion with patient PCP: Radha Dispo: Admitted to [facility]. Discharge planning ordered (83yo and lives alone). PT/OT evaluations ordered. Patient seen in collaboration with Dr. Farley. Please see addendum. (10) Abnormal computed tomography of abdomen and pelvis: .The gallbladder is distended. The gallbladder wall appears thickened and there is pericholecystic stranding. The appearance is concerning for acute cholecystitis. Clinical and laboratory correlation will be required. Ultrasound could be considered for further assessment if clinically warranted. HIDA scan ruled out acute cholecystitis The bladder is circumferentially thick-walled and there is pericystic inflammation. Correlate clinically and with urinalysis for evidence of cystitis. Has right pyelonephritis with hydronephrosis but no calculus identified We need to have outpatient urology appointment on discharge Cirrhotic liver morphology. Findings are consistent with chronic pancreatitis. 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 Follow-up with surgery as an outpatient There is a large fat-containing left-sided lumbar hernia. Nonsymptomatic Subjective 09/30 Patient seen and examined medical telemetry unit This is an 83-year-old male with a PMH of DM II, HTN, HLD, CKD III, COPD and iron deficiency anemia who presents with weakness and chills x 4 days He was admitted with right flank pain with right hydronephrosis noted to have an abnormal CT of the abdomen and pelvis as noted below He has been feeling a lot better today Denies any significant symptoms Review of Systems Review of Systems: All systems reviewed and are unremarkable except as noted below Gastrointestinal: + heartburn and + problem reported (Right flank pain is better) Physical Exam Physical Exam: No apparent distress at rest and sitting on a chair Eyes: PERRL, conjunctivae normal, anicteric sclerae ENMT: external ear and nose normal, oropharynx normal Neck: trachea midline, no thyromegaly Respiratory: normal respiratory effort, lungs clear to auscultation Cardiovascular: RRR, no murmur, no edema Gastrointestinal (Abdomen): Inspection/Auscultation: abdomen normal to inspection and normal bowel sounds Percussion/Palpation: + abdomen tender (Mildly tender right renal angle) Musculoskeletal: Extremities: extremities normal to inspection Skin: no rashes, warm and dry Neurologic: PERRL, EOMI, accommodation nl, no face palsy, no dysarthria Genitourinary: Denies any significant symptoms Results & Data Vital Signs (Past 12 Hours) Vital Signs Temp Pulse Pulse Resp BP Pulse Ox 09/30/18 12:31 36.6 C 64 18 123/76 95 09/30/18 08:10 80 09/30/18 07:30 36.7 C 55 L 18 148/76 H 94 09/30/18 04:33 37.5 C 56 L 16 117/57 L 91 09/30/18 01:58 83 Laboratory Results Short CBC 09/30/18 Range/Units 05:56 WBC 15.15 H (4.8-10.8) K/uL Hgb 11.8 L (14.0-18.0) g/dL Hct 34.0 L (42-52) % Plt Count 170 (130-400) K/uL BMP 09/29/18 09/30/18 18:44 05:56 Sodium 133 L 134 L Potassium 4.3 3.7 Chloride 105 105 Carbon Dioxide 22 23 BUN 35 H 32 H Creatinine 1.70 H 1.62 H Glucose 242 H 208 H Calcium 9.5 9.2 Liver Function 09/29/18 09/30/18 Range/Units 18:44 05:56 Total Bilirubin 0.4 0.6 (0.2-1) mg/dl Direct Bilirubin 0.3 H (0-0.2) mg/dl AST 15 17 (15-37) U/L ALT 19 21 (12-78) U/L Alkaline Phosphatase 101 100 (45-117) U/L Albumin 2.5 L 2.2 L (3.4-5.0) gm/dl Urine 09/29/18 Range/Units 12:10 Urine Color Dark Yellow Urine Appearance Turbid H (Clear) Urine pH 5.0 (4.5-7.5) Ur Specific [place] 1.020 (1.000-1.030) Urine Protein 2+ H (Negative) Urine Glucose (UA) Trace H (Negative) Diagnostic Findings CT of the Abdomen and Pelvis: 1. The gallbladder is distended. The gallbladder wall appears thickened and there is pericholecystic stranding. The appearance is concerning for acute cholecystitis. Clinical and laboratory correlation will be required. Ultrasound could be considered for further assessment if clinically warranted. 2. The bladder is circumferentially thick-walled and there is pericystic inflammation. Correlate clinically and with urinalysis for evidence of cystitis. 3. There is mild to moderate right-sided hydronephrosis, with associated urothelial thickening and perinephric stranding. No obstructing lesion/calculus is identified. Ascending urinary tract infection/pyelonephritis could have this appearance. Again, correlation with clinical findings and urinalysis will be r equired. 4. Cirrhotic liver morphology. 5. Findings are consistent with chronic pancreatitis. 6. 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 7. There is a large fat-containing left-sided lumbar hernia. 8. Mild colonic diverticulosis without CT evidence of acute diverticulitis. 9. Additional findings as above. Medications Administered Current Inpatient Medications Acetaminophen (Tylenol) 650 mg PO Q4H PRN PRN Reason: Pain or Fever Stop: 10/29/18 17:31 Albuterol (Ventolin Hfa) 2 puffs INH QID PRN PRN Reason: Shortness Of Breath Or Wheezin Atenolol (Tenormin) 25 mg PO DAILY ANTONELLA Stop: 10/30/18 08:59 Last Admin: 09/30/18 08:15 Dose: 25 mg Documented by: Atorvastatin Calcium (Lipitor) 10 mg PO DAILY ANTONELLA Stop: 10/30/18 08:59 Last Admin: 09/30/18 08:15 Dose: 10 mg Documented by: Dextrose (Dextrose 50%) 25 - 50 ml IV UD PRN; Protocol PRN Reason: Hypoglycemia Protocol Stop: 10/29/18 17:31 Docusate Sodium (Colace) 100 mg PO DAILY ANTONELLA Stop: 10/29/18 18:14 Last Admin: 09/30/18 08:14 Dose: 100 mg Documented by: Ferrous Sulfate (Feosol) 325 mg PO DAILY ANTONELLA Stop: 10/30/18 08:59 Last Admin: 09/30/18 08:15 Dose: 325 mg Documented by: Glucagon (Glucagen) 1 mg SQ UD PRN; Protocol PRN Reason: Hypoglycemia Protocol Stop: 10/29/18 17:31 Glucose (Glucose 40%) 15 - 30 gm PO UD PRN; Protocol PRN Reason: Hypoglycemia Protocol Stop: 10/29/18 17:31 Glucose (Dex4 Glucose) 4 - 8 tabs PO UD PRN; Protocol PRN Reason: Hypoglycemia Protocol Stop: 10/29/18 17:31 Heparin Sodium (Porcine) (Heparin Sodium (Porcine)) 5,000 units SQ Q8 ANTONELLA Stop: 10/30/18 07:14 Last Admin: 09/30/18 08:12 Dose: 5,000 units Documented by: Sodium Chloride (Nss 1000ml) 1,000 mls @ 80 mls/hr IV .[id number] ANTONELLA Stop: 09/30/18 17:44 Last Admin: 09/30/18 07:54 Dose: 80 mls/hr Documented by: Piperacillin Sod/Tazobactam (Sod 3.375 gm/ Dextrose) 115 mls @ 28.75 mls/hr IV Q8H ANTONELLA; Protocol Stop: 10/06/18 17:59 Last Infusion: 09/30/18 12:08 Dose: Infused Documented by: Insulin Aspart (Novolog Flexpen) 0 units SC ACHS ANTONELLA Stop: 10/29/18 20:59 Last Admin: 09/30/18 12:42 Dose: 4 units Documented by: Miscellaneous (Carbohydrates For Hypoglycemia) 15 - 30 gm PO UD PRN PRN Reason: Hypoglycemia Treatment Stop: 10/29/18 17:31 Miscellaneous Information (Consult) 1 ea N/A UD PRN PRN Reason: Consult Stop: 10/29/18 17:41 Multivitamins (Multivitamin Tab) 1 tab PO DAILY ANTONELLA Stop: 10/30/18 08:59 Last Admin: 09/30/18 08:15 Dose: 1 tab Documented by: Polyethylene Glycol (Miralax Powder Packet) 17 gm PO DAILY PRN PRN Reason: Constipation Stop: 10/29/18 17:31 Fluticasone/Salmeterol (Advair Diskus 100/50) 1 puffs INH BID ANTONELLA Stop: 10/29/18 20:59 Last Admin: 09/30/18 08:15 Dose: 1 puffs Documented by:
[2018-09-30] MEDS ORDERED: VANCOMYCIN CONSULT ACTIVE PRN (13:54)
[2018-09-30] MEDS ORDERED: VANCOMYCIN HCL 1,000 MG/270 ML BAG IV STA (13:54)
[2018-09-30] MEDS ORDERED: VANCOMYCIN HCL 1,750 MG in SODIUM CHLORIDE 0.9% 500 ML IV ONE (14:30)
--- NOTE | 2018-09-30 14:31 | Progress Note ---
Date of Service September 30, 2018 Assessment & Plan (1) Abnormal gall bladder diagnostic imaging: chronic chgs in gallbladder- pt is asx Hida normal- adv diet as tolerated Subjective awake, alert hida normal Physical Exam Physical Exam: no acute chgs Results & Data Vital Signs (Past 12 Hours) Vital Signs Temp Pulse Pulse Resp BP Pulse Ox 09/30/18 12:31 36.6 C 64 18 123/76 95 09/30/18 08:10 80 09/30/18 07:30 36.7 C 55 L 18 148/76 H 94 09/30/18 04:33 37.5 C 56 L 16 117/57 L 91
--- NOTE | 2018-09-30 14:49 | Pharmacy Report ---
Pharmacy Abx Initial Consult - Date of Service September 30, 2018 - Pharmacy Dosing Scope Date of Consult: 09/30 Consultation requested by: Dr. Reyes Pharmacy is consulted to initiate vancomycin IV dosing therapy, order appropriate labs and adjust drug dose/frequency. Pharmacy consulted to initiate Zosyn last evening. - Subjective The patient is a 83 year old M admitted on 09/29/18 16:31. - Objective Height: 5 ft 6 in Weight: 74.6 kg Vital Signs (Past 12hrs): Vital Signs Temp Pulse Pulse Resp BP Pulse Ox 09/30/18 12:31 36.6 C 64 18 123/76 95 09/30/18 08:10 80 09/30/18 07:30 36.7 C 55 L 18 148/76 H 94 09/30/18 04:33 37.5 C 56 L 16 117/57 L 91 Lab Results (24hrs): Laboratory Tests (24 Hours) 09/30/18 09/30/18 09/29/18 05:56 05:56 18:44 WBC 15.15 H Creatinine 1.62 H 1.70 H Est Cr Clr Drug Dosing 30.1 33.8 Micro Results: 09/29/18 17:26 Blood Culture - Pending Blood - Assessment & Plan Assessment 83 year old M admitted 09/29 for possible pneumonia, pyelonephritis and acute cholecystitis. He was initiated on Zosyn last night. Patient now has GPC in clusters in his blood culture, with S. aureus and staph species in his urine and vancomycin has been initiated. SCr elevated on admission but this is improving quickly (baseline is ~1.2-1.4) Plan Vancomycin IV * Estimated PK Parameters: Vd 0.7 L/kg, Selvin 0.029 hr-1, t1/2 23.8 hr * Loading dose: 1750 mg (23.4 mg/kg) * Maintenance dose: 1000 mg IV (14 mg/kg) every 24 hours - dosing aggressively since SCr is improving and anticipate t1/2 to be ~20-22 hrs * Goal trough level : 15 to 20 mcg/mL * Trough level will be ordered tomorrow once SCr evaluated Piperacillin/tazobactam * 3.375 g bolus administered over 30 minutes, then 3.375 g IV extended infusion every 8 hours for CrCl greater than 20 mL/min Pharmacy will continue to follow and will adjust dose/frequency as necessary. Thank you.
[2018-10-01] MEDS: PIPERACILLIN/TAZOBACTAM 3.375 GM in DEXTROSE 5% 100 ML IV SCH ×2 (01:12→08:15)
[2018-10-01] MEDS: HEPARIN SOD 5,000 UNIT/0.5 ML VIAL SQ SCH ×3 (05:26→21:03)
[2018-10-01 05:32] LABS: Basophils # (auto) 0.02 K/uL (0-0.2); Basophils % (auto) 0.2 %; Eosinophils # (auto) 0.17 K/uL (0-0.5); Eosinophils % (auto) 1.7 %; Hematocrit (blood only) 31.9 % (42-52); Immature Granulocytes # (auto) 0.08 K/uL (0.00-0.02); Immature Granulocytes % (auto) 0.8 %; Lymphocytes # (auto) 1.73 K/uL (1.2-3.4); Lymphocytes % (auto) 17.4 %; Mean Corpuscular Hgb Conc 34.5 g/dL (32-36); Mean Corpuscular Volume 88.1 fL (80-100); Mean Platelet Volume 10.6 fL (7.4-10.4); Monocytes # (auto) 0.87 K/uL (0.11-0.59); Monocytes % (auto) 8.7 %; Neutrophils # (auto) 7.09 K/uL (1.4-6.5); Neutrophils % (auto) 71.2 %; Platelet Count 178 K/uL (130-400); RDW Coefficient of Variation 13.4 % (11.5-14.5); RDW Standard Deviation 43.3 fL (36.4-46.3); Red Blood Count 3.62 M/uL (4.7-6.1); White Blood Count 9.96 K/uL (4.8-10.8)
[2018-10-01 06:03] LABS: BUN Creatinine Ratio 15.3 (10-20); Calcium 8.7 mg/dl (8.5-10.1); Creatinine Clr Calc Pharmacy 29.4 ml/min; Est GFR (African American) 42.9; Potassium 3.6 mmol/L (3.5-5.1)
[2018-10-01 06:06] LABS: Albumin Globulin Ratio 0.5 (0.9-2); Bilirubin,Total 0.8 mg/dl (0.2-1); Globulin 4.1 gm/dl (2.5-4.0); Total Protein 6.1 gm/dl (6.4-8.2)
[2018-10-01] MEDS: INSULIN ASPART 100 UNITS/ML 3 ML PEN SC SCH ×4 (08:15→21:02)
[2018-10-01] MEDS: FLUTICASONE/SALMETEROL 100/50 (ADVAIR) 14 PUFF/1 INHALER INH SCH ×2 (08:15→21:02)
[2018-10-01] MEDS: ATORVASTATIN 10 MG TAB PO SCH (08:16)
[2018-10-01] MEDS: ATENOLOL 25 MG TABLET PO SCH (08:16)
[2018-10-01] MEDS: MULTIVITAMIN TAB PO SCH (08:16)
[2018-10-01] MEDS: FERROUS SULFATE 325 MG TAB PO SCH (08:16)
[2018-10-01] MEDS: DOCUSATE SODIUM 100 MG CAP PO SCH (08:16)
--- NOTE | 2018-10-01 08:19 | Progress Note ---
Date of Service October 01, 2018 Assessment & Plan (1) Pyelonephritis: Vanco started, ID consulted Hida- cystic duct open- cont to follow- cont treatment for suspected pyelonephritis Subjective MRSA in blood pt sitting at bedside- no complaint Physical Exam Physical Exam: no acute chgs Results & Data Vital Signs (Past 12 Hours) Vital Signs Temp Pulse Pulse Resp BP Pulse Ox 10/01/18 07:50 59 L 10/01/18 07:16 37.0 C 55 L 18 118/67 93 10/01/18 04:00 36.6 C 68 20 119/65 95 10/01/18 00:00 36.8 C 72 20 128/77 93
--- NOTE | 2018-10-01 10:28 | Infectious Disease Consult ---
Date of Consultation October 01, 2018 Assessment & Plan (1) Bacteremia due to methicillin susceptible Staphylococcus aureus (MSSA): 83-year-old male with MSSA bacteremia, with evidence of pyelonephritis as well as possible cholecystitis. Not clear whether infection began in urinary tract or whether patient had secondary seeding from bacteremia. Will change IV antibiotics to cefazolin for now, and would recommend obtaining echocardiogram as well as MRI scan of the lower thoracic/upper lumbar spine to ensure no evidence of seeding of infection into the disc space or spine, as patient could be having degree of referred pain. Discussed with hospitalist service. Will follow. (2) Pyelonephritis: History of Present Illness Reason for Consultation: Bacteremia Attending Physician: Gin Reyes MD History of Present Illness 83-year-old male with history of diabetes mellitus, hypertension, stage III chronic kidney disease, hyperlipidemia, COPD, who is in usual state of health until 5 to 7 days prior to admission when he began to notice increasing right flank pain with some radiation towards the center abdomen, with back pain as well. Had chills but no reported significant fever. Associated with increasing weakness and worsening of pain and so patient came to the hospital for further management. He has been found to have positive blood cultures for methicillin sensitive staph aureus. CT scan of the abdomen suggestive of right pyelonephritis. Patient denies any significant urinary complaints or prior urinary tract infection. Feeling somewhat better since starting on antibiotics. Currently being treated with vancomycin and Zosyn. Allergies Allergy/AdvReac Type Severity Reaction Status Date / Time No Known Allergies Allergy Verified 09/29/18 11:58 Home Medications Home Medications Medication Instructions Recorded Confirmed Type albuterol sulfate [ProAir HFA] 2 puff INHALATION QID PRN 09/29/18 09/29/18 History aspirin-dipyridamole [Aggrenox] 1 cap PO BID 09/29/18 09/29/18 History atenolol 25 mg PO DAILY 09/29/18 09/29/18 History atorvastatin 10 mg PO DAILY 09/29/18 09/29/18 History ferrous sulfate 1 tab PO DAILY 09/29/18 09/29/18 History fluticasone propion-salmeterol 1 puff INHALATION BID 09/29/18 09/29/18 History [Advair Diskus] furosemide 40 mg PO DAILY 09/29/18 09/29/18 History lisinopril 2.5 mg PO DAILY 09/29/18 09/29/18 History metformin 500 mg PO BID 09/29/18 09/29/18 History multivitamin 1 tab PO DAILY 09/29/18 09/29/18 History potassium chloride [Klor-Con M10] 10 meq PO BID 09/29/18 09/29/18 History Patient History Medical History SUNDAY (iron deficiency anemia) (Chronic) CKD (chronic kidney disease), stage III (Chronic) COPD (chronic obstructive pulmonary disease) (Chronic) HLD (hyperlipidemia) (Chronic) Diabetes mellitus, type II (Chronic) Hypertension (Chronic) Surgical History History of ankle surgery (Resolved) History of hernia repair (Resolved) Family History Other Diabetes Social History Preferred Language: Yi Communication Ability: Effective Book Agent Required: No Beliefs That Will Affect Care: None Current Living Situation: Alone Other Information That Helps Us Care for You: No Feels Safe at Home: Yes Safety Concerns: Feels Safe At This Time Smoking Status: Former smoker Do You Dip or Chew Tobacco: No Second Hand Exposure: No Tobacco Cessation Education Requested by Patient: No Hx Alcohol Use: No Hx Substance Use: No Review of Systems Review of Systems: All systems reviewed & are unremarkable except as noted in HPI & below Physical Exam Constitutional: WD/WN, vitals as above comfortable; no acute distress Eyes: PERRL, conjunctivae normal, anicteric sclerae ENMT: external ear and nose normal, oropharynx normal Neck: trachea midline, no thyromegaly neck nontender Respiratory: normal respiratory effort, lungs clear to auscultation normal percussion; does not use accessory muscles Cardiovascular: Rate/Rhythm: regular rate and regular rhythm Heart Sounds: normal S1 and normal S2; no gallop, no murmur and no cardiac rub Vessels: normal peripheral pulses; no JVD Gastrointestinal (Abdomen): normal bowel sounds, soft, nontender, no hepatosplenomegaly Musculoskeletal: no cyanosis or clubbing, extremities motor strength 5/5 Spine: thoracic spine normal to inspection and lumbar spine normal to inspection; no cervical spinal tenderness Skin: no rashes, warm and dry normal turgor; no lesions Neurologic: patellar DTR's 2+ bilat, sensation intact no focal motor deficits Psychiatric: A+Ox3, euthymic affect Orientation: cooperative Lymphatic: no cervical or axillary lymphadenopathy no inguinal lymphadenopathy Results & Data Vital Signs (Past 12 Hours) Vital Signs Temp Pulse Pulse Resp BP Pulse Ox 10/01/18 07:50 59 L 10/01/18 07:16 37.0 C 55 L 18 118/67 93 10/01/18 04:00 36.6 C 68 20 119/65 95 10/01/18 00:00 36.8 C 72 20 128/77 93 Laboratory Results Short CBC 10/01/18 Range/Units 05:08 WBC 9.96 (4.8-10.8) K/uL Hgb 11.0 L (14.0-18.0) g/dL Hct 31.9 L (42-52) % Plt Count 178 (130-400) K/uL BMP 10/01/18 05:08 Sodium 136 Potassium 3.6 Chloride 109 H Carbon Dioxide 23 BUN 25 H Creatinine 1.66 H Glucose 168 H Calcium 8.7 Liver Function 10/01/18 Range/Units 05:08 Total Bilirubin 0.8 (0.2-1) mg/dl AST 52 H (15-37) U/L ALT 47 (12-78) U/L Alkaline Phosphatase 127 H (45-117) U/L Albumin 2.0 L (3.4-5.0) gm/dl Diagnostic Findings Microbiology 09/29/18 17:32 Blood Blood Culture - Preliminary Staphylococcus aureus 09/29/18 17:26 Blood Blood Culture - Preliminary Staphylococcus aureus 09/29/18 12:10 Urine,Clean Catch Urine Culture - Preliminary Staphylococcus aureus Staphylococcus aureus#2 CT SCAN OF THE ABDOMEN AND PELVIS WITHOUT IV CONTRAST CLINICAL HISTORY: Right flank pain. COMPARISON STUDY: Abdominal CT dated 12/13/2015. TECHNIQUE: CT scan of the abdomen and pelvis is performed from the lung bases to the proximal femora. Images are reviewed in the axial, sagittal, and coronal planes. IV contrast was not administered for this examination as per the referring clinician. Note that the examination was performed in suboptimal fashion without oral and IV contrast. A dose lowering technique was utilized adhering to the principles of ALARA. CT DOSE: 405.66 mGy.cm FINDINGS: Lung bases: The heart is enlarged and without pericardial effusion. The coronary arteries are densely calcified. 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 Emphysema is suspected. There is bibasilar scarring/atelectasis. No airspace consolidation or pleural effusion is identified. Calcified granulomas are seen at the left lung base. There is a small hiatal hernia. Liver: The unenhanced liver is cirrhotic in morphology and heterogeneous in attenuation. There is nodularity of the hepatic surface contour. There is no intrahepatic biliary ductal dilatation. Gallbladder: The gallbladder is markedly distended. The gallbladder wall is mildly thickened and there is faint pericholecystic stranding. The appearance is concerning for acute cholecystitis. Spleen: Normal in size and attenuation. Pancreas: The unenhanced pancreas is atrophic. There are numerous parenchymal calcifications consistent with chronic pancreatitis. A 7 mm calcifications. #143 is likely located within the pancreatic duct. Adrenal glands: Unremarkable. Kidneys: A portion of the right kidney is contained within a Bochdalek hernia. The unenhanced kidneys demonstrate cortical atrophy. There is mild to moderate right-sided hydronephrosis. There is associated urothelial thickening and perinephric stranding. The right ureter is normal in caliber and no obstructing lesion/stone is identified. There are no renal calculi identified. No left-sided hydronephrosis is identified. There is no evidence of contour deforming renal mass lesion. Abdominal vasculature: The abdominal aorta is normal in course and caliber noting advanced atherosclerotic calcification. Bowel: There is mild colonic diverticulosis without CT evidence of acute diverticulitis. Fecal retention is noted throughout the colon. No bowel obstruction is seen. Bowel loops are matted against the ventral abdominal wall, likely representing adhesions. The appendix is well-visualized and normal. Peritoneum: There is no intraperitoneal free air or abdominal ascites. There is evidence of previous ventral hernia repair. There is a large fat-containing left lumbar hernia. Lymphadenopathy: There are numerous prominent retroperitoneal lymph nodes. Pelvic viscera: The prostate gland is diminutive and heterogeneous. The bladder wall is circumferentially thickened and there is mild pericystic stranding. Postoperative changes consistent with previous right inguinal herniorrhaphy. Skeletal structures: The skeletal structures are osteopenic. Moderate lumbosacral spondylosis is observed. Arthritic change is noted in the hips and sacroiliac joints. No lytic or blastic lesions are seen. IMPRESSION: 1. The gallbladder is distended. The gallbladder wall appears thickened and there is pericholecystic stranding. The appearance is concerning for acute cholecystitis. Clinical and laboratory correlation will be required. Ultrasound could be considered for further assessment if clinically warranted. 2. The bladder is circumferentially thick-walled and there is pericystic inflammation. Correlate clinically and with urinalysis for evidence of cystitis. 3. There is mild to moderate right-sided hydronephrosis, with associated urothelial thickening and perinephric stranding. No obstructing lesion/calculus is identified. Ascending urinary tract infection/pyelonephritis could have this appearance. Again, correlation with clinical findings and urinalysis will be required. 4. Cirrhotic liver morphology. 5. Findings are consistent with chronic pancreatitis. 6. 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 7. There is a large fat-containing left-sided lumbar hernia. 8. Mild colonic diverticulosis without CT evidence of acute diverticulitis.
[2018-10-01] MEDS: CEFAZOLIN 1000MG 1,000 MG/7.5 ML SYR IV SCH ×2 (12:57→20:45)
--- NOTE | 2018-10-01 13:21 | Hospitalist Progress Note ---
Date of Service October 01, 2018 Assessment & Plan (1) Bacteremia due to methicillin susceptible Staphylococcus aureus (MSSA): Blood cultures grew staph aureus with MSSA Appreciate ID input and recommendation Echo has been ordered to rule out vegetation MRI of the lumbar and thoracic spine will be done to rule out any infective source/vegetation Antibiotic has been changed to cefazolin (2) Pyelonephritis: This is an 83-year-old male with a PMH of DM II, HTN, HLD, CKD III, COPD and iron deficiency anemia who presents with weakness and chills x 4 days and was found to have acute pyelonephritis and acute kidney injury. -Afebrile, leukocytosis of 20.75. Non-toxic appearance, vital signs stable -CT abdomen/pelvis with pericystic inflammation, mild to moderate right-sided hydronephrosis with urothelial thickening and perinephric stranding consistent with pyelonephritis -UA with evidence of infection and 3+ urine blood, -urine culture -shows staph likely contaminant -Blood culture-pending -Given dose of Rocephin x 1 in ED. Will continue coverage with Zosyn, to also cover for possible PNA -Consider urology consult if no clinical improvement -Gentle IV fluids -Clinically better and will continue current medications -We will continue current antibiotic (3) Acute kidney injury superimposed on chronic kidney disease: Cr elevated at 1.91 (baseline ~1.2-1.4), has CKD III at baseline -In setting of poor PO intake, infection -Gentle IV fluids, hold lisinopril and lasix -Creatinine has been improving and fluctuating (4) Abnormal gall bladder diagnostic imaging: CT abd/pelvis with evidence of gallbladder distention and cindy-cholecystic stranding concerning for cholecystitis -Unremarkable abdominal exam -Appreciate surgery input and recommendation -HIDA scan did not show any evidence of acute cholecystitis - (5) Abnormal CXR: CXR with evidence of infiltrate at R base -Given empiric dose of Levaquin in ED -H/o URI 4 months ago, continues to have intermittent cough -No productive sputum, wheezing or SOB. O2 saturation 99% on RA -Receiving Zosyn, follow blood and sputum cultures -Doubt any pneumonia (6) Diabetes mellitus, type II: A1c of 7.9 in August 2018 -Hold home metformin -SSI while in-patient -[facility] (7) Hypertension: Normotensive -Continue atenolol -Holding Lisinopril, Lasix in setting of ELVIN (8) COPD (chronic obstructive pulmonary disease): Continue Advair, Albuterol PRN No acute exacerbation (9) SUNDAY (iron deficiency anemia): Hgb of 12.6 (baseline hgb 12-13) -Has not been taking iron supplement due to constipation -Encouraged to restart, will also add Colace 100mg daily, PRN Miralax (10) HLD (hyperlipidemia): Continue statin DVT Ppx: SCDs in setting of hematuria Code status: FULL per discussion with patient PCP: Radha Dispo: Admitted to [facility]. Discharge planning ordered (83yo and lives alone). PT/OT evaluations ordered. Patient seen in collaboration with Dr. Farley. Please see addendum. (11) Abnormal computed tomography of abdomen and pelvis: .The gallbladder is distended. The gallbladder wall appears thickened and there is pericholecystic stranding. The appearance is concerning for acute cholecystitis. Clinical and laboratory correlation will be required. Ultrasound could be considered for further assessment if clinically warranted. HIDA scan ruled out acute cholecystitis The bladder is circumferentially thick-walled and there is pericystic inflammation. Correlate clinically and with urinalysis for evidence of cystitis. Has right pyelonephritis with hydronephrosis but no calculus identified We need to have outpatient urology appointment on discharge Cirrhotic liver morphology. Findings are consistent with chronic pancreatitis. 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 Follow-up with surgery as an outpatient There is a large fat-containing left-sided lumbar hernia. Nonsymptomatic Subjective 09/30 Patient seen and examined medical telemetry unit This is an 83-year-old male with a PMH of DM II, HTN, HLD, CKD III, COPD and iron deficiency anemia who presents with weakness and chills x 4 days He was admitted with right flank pain with right hydronephrosis noted to have an abnormal CT of the abdomen and pelvis as noted below He has been feeling a lot better today Denies any significant symptoms 10/01 Patient is seen and examined. Remains asymptomatic but blood culture came back positive for staph aureus MSSA Denies any symptoms as of today Review of Systems Review of Systems: all system reviewed and unremarkable except as noted below Constitutional: + weakness Musculoskeletal: + myalgia Physical Exam Physical Exam: No apparent distress at rest Constitutional: well developed and well nourished; no acute distress Eyes: PERRL, conjunctivae normal, anicteric sclerae ENMT: external ear and nose normal, oropharynx normal Neck: trachea midline, no thyromegaly Respiratory: normal respiratory effort, lungs clear to auscultation Cardiovascular: RRR, no murmur, no edema Gastrointestinal (Abdomen): Inspection/Auscultation: abdomen normal to inspection and normal bowel sounds Percussion/Palpation: + abdomen tender (Mildly tender right renal angle) Musculoskeletal: Extremities: extremities normal to inspection Skin: no rashes, warm and dry Neurologic: PERRL, EOMI, accommodation nl, no face palsy, no dysarthria Lymphatic: no cervical or axillary lymphadenopathy Results & Data Vital Signs (Past 12 Hours) Vital Signs Temp Pulse Pulse Resp BP Pulse Ox 10/01/18 12:00 36.4 C L 61 18 130/72 95 10/01/18 07:50 59 L 10/01/18 07:16 37.0 C 55 L 18 118/67 93 10/01/18 04:00 36.6 C 68 20 119/65 95 Laboratory Results Short CBC 10/01/18 Range/Units 05:08 WBC 9.96 (4.8-10.8) K/uL Hgb 11.0 L (14.0-18.0) g/dL Hct 31.9 L (42-52) % Plt Count 178 (130-400) K/uL BMP 10/01/18 05:08 Sodium 136 Potassium 3.6 Chloride 109 H Carbon Dioxide 23 BUN 25 H Creatinine 1.66 H Glucose 168 H Calcium 8.7 Liver Function 10/01/18 Range/Units 05:08 Total Bilirubin 0.8 (0.2-1) mg/dl AST 52 H (15-37) U/L ALT 47 (12-78) U/L Alkaline Phosphatase 127 H (45-117) U/L Albumin 2.0 L (3.4-5.0) gm/dl Medications Administered Current Inpatient Medications Acetaminophen (Tylenol) 650 mg PO Q4H PRN PRN Reason: Pain or Fever Stop: 10/29/18 17:31 Albuterol (Ventolin Hfa) 2 puffs INH QID PRN PRN Reason: Shortness Of Breath Or Wheezin Atenolol (Tenormin) 25 mg PO DAILY ANTONELLA Stop: 10/30/18 08:59 Last Admin: 10/01/18 08:16 Dose: Not Given Documented by: Atorvastatin Calcium (Lipitor) 10 mg PO DAILY ANTONELLA Stop: 10/30/18 08:59 Last Admin: 10/01/18 08:16 Dose: 10 mg Documented by: Dextrose (Dextrose 50%) 25 - 50 ml IV UD PRN; Protocol PRN Reason: Hypoglycemia Protocol Stop: 10/29/18 17:31 Docusate Sodium (Colace) 100 mg PO DAILY ANTONELLA Stop: 10/29/18 18:14 Last Admin: 10/01/18 08:16 Dose: 100 mg Documented by: Ferrous Sulfate (Feosol) 325 mg PO DAILY ANTONELLA Stop: 10/30/18 08:59 Last Admin: 10/01/18 08:16 Dose: 325 mg Documented by: Glucagon (Glucagen) 1 mg SQ UD PRN; Protocol PRN Reason: Hypoglycemia Protocol Stop: 10/29/18 17:31 Glucose (Glucose 40%) 15 - 30 gm PO UD PRN; Protocol PRN Reason: Hypoglycemia Protocol Stop: 10/29/18 17:31 Glucose (Dex4 Glucose) 4 - 8 tabs PO UD PRN; Protocol PRN Reason: Hypoglycemia Protocol Stop: 10/29/18 17:31 Heparin Sodium (Porcine) (Heparin Sodium (Porcine)) 5,000 units SQ Q8 ANTONELLA Stop: 10/30/18 07:14 Last Admin: 10/01/18 12:55 Dose: 5,000 units Documented by: Piperacillin Sod/Tazobactam (Sod 3.375 gm/ Dextrose) 115 mls @ 28.75 mls/hr IV Q8H [facility]; Protocol Stop: 10/06/18 17:59 Last Infusion: 10/01/18 12:20 Dose: Infused Documented by: Cefazolin Sodium (Ancef 1000mg) 1,000 mg in 7.5 mls @ 2.5 mls/min IV Q8H [facility] Stop: 10/15/18 11:59 Last Admin: 10/01/18 12:57 Dose: 2.5 mls/min Documented by: Insulin Aspart (Novolog Flexpen) 0 units SC ACHS [facility] Stop: 10/29/18 20:59 Last Admin: 10/01/18 12:54 Dose: 4 units Documented by: Miscellaneous (Carbohydrates For Hypoglycemia) 15 - 30 gm PO UD PRN PRN Reason: Hypoglycemia Treatment Stop: 10/29/18 17:31 Multivitamins (Multivitamin Tab) 1 tab PO DAILY ANTONELLA Stop: 10/30/18 08:59 Last Admin: 10/01/18 08:16 Dose: 1 tab Documented by: Polyethylene Glycol (Miralax Powder Packet) 17 gm PO DAILY PRN PRN Reason: Constipation Stop: 10/29/18 17:31 Fluticasone/Salmeterol (Advair Diskus 100/50) 1 puffs INH BID ANTONELLA Stop: 10/29/18 20:59 Last Admin: 10/01/18 08:15 Dose: 1 puffs Documented by:
[2018-10-01] MEDS ORDERED: VANCOMYCIN HCL 1,000 MG in SODIUM CHLORIDE 0.9% 250 ML IV SCH (14:00)
--- NOTE | 2018-10-01 20:00 | Magnetic Resonance Report ---
MR thoracic spine wo con HISTORY: 83 years-old Male r/o infection acute mid and low back pain with clinical concern for possi ble discitis osteomyelitis COMPARISON: MRI lumbar spine of same day, CT abdomen and pelvis 09/29/2018. TECHNIQUE: Multiplanar multisequence MRI of the thoracic spine was obtained without the use of IV con trast. FINDINGS: The order processing specialist localizer images demonstrate no gross extraspinal abnormality. The heart appears enlarged. Tortuosity about the descending thoracic aorta. Right diaphragmatic hernia containing a portion of th e right kidney redemonstrated. Small right pleural effusion. Trace left pleural effusion. Urothelial thickening about the right kidney redemonstrated with perinephric edema. There is no acute fracture, subluxation or focal bone marrow edema. There is an indeterminate ovoid T1 hypointense and T2 hyperintense lesion of the subcutaneous tissues of the right paraspinal distrib ution at the level of T3, possibly reflecting a sebaceous cyst. Signal within the imaged spinal cord appears unremarkable. Multilevel disc space narrowing with spondylitic spurring and facet arthrosis. Remote appearing anterior endplate wedge deformity of 25% involves CT 3 vertebral body. No evidence o f discitis osteomyelitis. No high-grade central canal or foraminal narrowing identified. IMPRESSION: 1. No acute fracture, subluxation or focal bone marrow edema. 2. No evidence of acute discitis/osteomyelitis. 3. Remote T3 compression deformity. 4. Right greater than left bilateral pleural effusions. 5. 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 Please refer to CT abdomen and pelvis 9 for further details. The above report was generated using voice recognition software. It may contain grammatical, syntax o r spelling errors. Electronically signed by: Michael Talbert M.D. 10/01/2018 7:58 PM
--- NOTE | 2018-10-01 20:14 | Magnetic Resonance Report ---
MR lumbar spine wo con CLINICAL HISTORY: 83 years-old Male with r/o disciitis/osteo. Acute low back pain with concern for a cute discitis/osteomyelitis. COMPARISON: MRI lumbar spine of same day, CT abdomen and pelvis 09/29/2018 TECHNIQUE: Multiplanar, multi sequence MRI of the lumbar spine was performed without intravenous cont rast. FINDINGS: Curriculum Assistant localizer images demonstrate no gross extraspinal abnormality. No adenopathy. Conus medullaris terminates at the L1-L2 interspace. Signal within the imaged thoracic spinal cord appears normal. The re is no acute fracture, subluxation or focal bone marrow edema. Synovial cysts are noted about the L 5-S1 facets measuring up to 8 mm. No evidence of acute discitis/osteomyelitis. No epidural fluid pat ections. T12-L1: Moderate disc space narrowing with spondylitic spurring, circumferential annular disc bulge and moderate facet arthrosis. No central canal or foraminal narrowing. L1-L2: Mild disc space narrowing with circumferential disc bulge, spondylitic spurring and moderate facet arthrosis. No central canal or foraminal narrowing. L2-L3: Mild disc space narrowing with spondylitic spurring and moderate facet arthrosis with ligamen ailyn flavum thickening. Flattening of the ventral thecal sac results in mild bilateral foraminal narro wing. Central canal is patent. L3-L4: Mild disc space narrowing. 3 mm retrolisthesis L3 on L4 is likely on a degenerative basis. Ci rcumferential annular disc bulge with spondylitic spurring, moderate facet arthrosis and ligamentum f lavum thickening. Mild bilateral foraminal narrowing. The central canal is patent. L4-L5: Mild spondylitic spurring with small posterior annular disc bulge, advanced facet arthrosis w ith ligamentum flavum thickening. Flattening of the ventral thecal sac without significant central ca nal stenosis. There is mild to moderate left and mild right foraminal narrowing. L5-S1: Spondylitic spurring with small posterior annular disc bulge, advanced facet arthrosis with t race facet effusions and ligamentum flavum thickening. Left foramen is patent. Moderate foraminal unique rowing. The central canal is patent. IMPRESSION: 1. No acute fracture, subluxation or focal bone marrow edema. 2. No evidence of acute discitis/osteomyelitis. 3. Multilevel degenerative changes as above without high-grade central canal or foraminal narrowing. The above report was generated using voice recognition software. It may contain grammatical, syntax o r spelling errors. Electronically signed by: Michael Talbert M.D. 10/01/2018 8:12 PM
[2018-10-01] MEDS ORDERED: Heparin IV Low Dose *NO* Bolus IV SCH (22:10)
[2018-10-01] MEDS ORDERED: METOPROLOL TARTRATE 1 MG/ML VIAL IV STA (22:10)
[2018-10-01] MEDS: Heparin Adult LOW DOSE Wt-Based Dextrose 5% 25,000 units/500 mL IV SCH (22:29)
[2018-10-01] MEDS ORDERED: dilTIAZem HCl 5 MG/ML 5 ML VIAL IV STA (23:29)
[2018-10-02] MEDS: dilTIAZem HCl 125 MG in DEXTROSE 5% 100 ML IV SCH ×3 (01:07→17:51)
[2018-10-02 04:45] LABS: Basophils # (auto) 0.03 K/uL (0-0.2); Basophils % (auto) 0.3 %; Eosinophils # (auto) 0.11 K/uL (0-0.5); Hematocrit (blood only) 35.4 % (42-52); Hemoglobin 12.3 g/dL (14.0-18.0); Immature Granulocytes % (auto) 1.9 %; Lymphocytes # (auto) 2.59 K/uL (1.2-3.4); Mean Corpuscular Hgb Conc 34.7 g/dL (32-36); Mean Corpuscular Volume 87.8 fL (80-100); Mean Platelet Volume 10.8 fL (7.4-10.4); Monocytes # (auto) 0.86 K/uL (0.11-0.59); Neutrophils # (auto) 6.99 K/uL (1.4-6.5); Neutrophils % (auto) 64.8 %; Platelet Count 217 K/uL (130-400); RDW Coefficient of Variation 13.5 % (11.5-14.5); RDW Standard Deviation 43.5 fL (36.4-46.3); Red Blood Count 4.03 M/uL (4.7-6.1); White Blood Count 10.78 K/uL (4.8-10.8)
[2018-10-02 05:04] LABS: Partial Thromboplastin Ratio 1.8
[2018-10-02 05:05] LABS: Alanine Aminotransferase 65 U/L (12-78); Albumin Level 2.1 gm/dl (3.4-5.0); Aspartate Aminotransferase 71 U/L (15-37); BUN Creatinine Ratio 13.3 (10-20); Blood Urea Nitrogen 23 mg/dl (7-18); Calcium 8.7 mg/dl (8.5-10.1); Carbon Dioxide 23 mmol/L (21-32); Chloride 108 mmol/L (98-107); Est GFR (African American) 40.5; Glucose 205 mg/dl (70-99); Potassium 3.2 mmol/L (3.5-5.1); Sodium 138 mmol/L (136-145)
[2018-10-02 05:09] LABS: Albumin Globulin Ratio 0.5 (0.9-2); Alkaline Phosphatase 195 U/L (45-117); Bilirubin,Total 0.9 mg/dl (0.2-1); Globulin 4.4 gm/dl (2.5-4.0); Total Protein 6.5 gm/dl (6.4-8.2); Troponin I < 0.015 ng/ml (0-0.045)
[2018-10-02 05:10] LABS: Partial Thromboplastin Time 49.4 Seconds (21.0-31.0)
[2018-10-02] MEDS: CEFAZOLIN 1000MG 1,000 MG/7.5 ML SYR IV SCH ×3 (05:21→19:50)
[2018-10-02] MEDS ORDERED: POTASSIUM CHLORIDE 20 MEQ TABCR PO STA (06:00)
[2018-10-02] MEDS: FLUTICASONE/SALMETEROL 100/50 (ADVAIR) 14 PUFF/1 INHALER INH SCH ×2 (08:49→19:47)
[2018-10-02] MEDS: INSULIN ASPART 100 UNITS/ML 3 ML PEN SC SCH ×4 (08:49→21:06)
[2018-10-02] MEDS: MULTIVITAMIN TAB PO SCH (08:50)
[2018-10-02] MEDS: ATORVASTATIN 10 MG TAB PO SCH (08:50)
[2018-10-02] MEDS: ATENOLOL 25 MG TABLET PO SCH (08:50)
[2018-10-02] MEDS: DOCUSATE SODIUM 100 MG CAP PO SCH (08:50)
--- NOTE | 2018-10-02 10:50 | Cardiology Consultation ---
Date of Consultation October 02, 2018 Assessment & Plan (1) Atrial fibrillation with RVR: Agree with initiation of IV heparin Continue IV diltiazem for rate control. Wean as tolerated. Add low dose metoprolol 25 mg BID. Stop home atenolol. No history of atrial fibrillation. Likely new onset in setting of acute bacteremia and electrolyte disturbance. Supplement potassium. 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 Hopeful he will convert to NSR with the above therapies. No amiodarone given elevated LFT's Echo with normal LV function. (2) Bacteremia due to methicillin susceptible Staphylococcus aureus (MSSA): Continue antibiotics per ID and hospitalist. Echo without evidence of vegetation. (3) Acute kidney injury superimposed on chronic kidney disease: (4) Hypertension: Supervising Physician Co-Signing Physician Notes I personally performed history and physical on the patient. Case was discussed with Kylie Newman PA-C. Agree with findings and plans as outlined with additions as below. Subjective: Patient denies any subjective palpitations. Feeling comfortable at present. Exam: Irregular rhythm, no murmurs Abdominal exam: Soft nontender nondistended Telemetry: Rate controlled atrial fibrillation in the range of 80 bpm present EKG performed 10/01/2018 2205 hrs. revealed atrial fibrillation with right bundle branch block, left anterior fascicular block pattern and inferior T wave inversion. Echocardiogram performed 10/01/2018 with the patient was in sinus rhythm revealed normal wall motion, no significant valvular abnormality. Impression and recommendations: Atrial fibrillation, likely due to high catecholamine state from underlying infection. Patient is on low-dose diltiazem we are working on weaning this. It is down to 3 mg/h. Agree with addition of low-dose metoprolol. Unfractioned heparin for stroke prophylaxis, pending determination as to whether or not invasive procedures may be necessary this admission. History of Present Illness Reason for Consultation: atrial fibrillation RVR Requesting Physician: Dr. Nguyen Attending Physician: Dr. Schreiber History of Present Illness Patient is an 83-year-old male with past history Significant for COPD,Hypertension, dyslipidemia, chronic iron deficiency anemia and chronic kidney disease. He denies hsitory of cardiovascular disease. He denies history of TN, CAD, cardiac catheterization or PCI, or prior stress testing. He denies history of arrhythmias. He did have an echocardiogram in 2018 at [facility] demonstrating normal LV systolic function with mild AI. He reports a long history of heart murmur and fever as a child. He presented to the emergency department several days ago with abdominal pain. Diagnosed with pyelonephritis and possible cholecystitis.He was also Found to have Bacteremia. ID was consulted and he was started on broad spectrum antibiotics. He had mild ELVIN and home lasix and lisinopril on hold. Last night at 2139 patient developed new onset atrial fibrillation with a rapid ventricular response. He was started on IV heparin and IV diltiazem for rate control.He reports this occurred right after having an MRI which He became "upset and panicky". He denies acute dizziness, syncope or near syncope. No chest pain or unusual shortness of breath. Heart rates trended down with IV diltiazem. No fever or chills. No orthopnea, PND or increased edema. At time of consult patient sitting in bed feeling well. He reports no acute complaints at this time. He remains in atrial fibrillation with improved amy tricular rates. His heart rates were elevated this morning upon ambulation to the restroom. He denies a history of acute bleeding issues, need for frequent blood transfusions, history of hemorrhage, melena or hematochezia. He denies frequent falls. Allergies Allergy/AdvReac Type Severity Reaction Status Date / Time No Known Allergies Allergy Verified 09/29/18 11:58 Home Medications Home Medications Medication Instructions Recorded Confirmed Type albuterol sulfate [ProAir HFA] 2 puff INHALATION QID PRN 09/29/18 09/29/18 History aspirin-dipyridamole [Aggrenox] 1 cap PO BID 09/29/18 09/29/18 History atenolol 25 mg PO DAILY 09/29/18 09/29/18 History atorvastatin 10 mg PO DAILY 09/29/18 09/29/18 History ferrous sulfate 1 tab PO DAILY 09/29/18 09/29/18 History fluticasone propion-salmeterol 1 puff INHALATION BID 09/29/18 09/29/18 History [Advair Diskus] furosemide 40 mg PO DAILY 09/29/18 09/29/18 History lisinopril 2.5 mg PO DAILY 09/29/18 09/29/18 History metformin 500 mg PO BID 09/29/18 09/29/18 History multivitamin 1 tab PO DAILY 09/29/18 09/29/18 History potassium chloride [Klor-Con M10] 10 meq PO BID 09/29/18 09/29/18 History Patient History Medical History SUNDAY (iron deficiency anemia) (Chronic) CKD (chronic kidney disease), stage III (Chronic) COPD (chronic obstructive pulmonary disease) (Chronic) HLD (hyperlipidemia) (Chronic) Diabetes mellitus, type II (Chronic) Hypertension (Chronic) Surgical History History of ankle surgery (Resolved) History of hernia repair (Resolved) Family History Other Diabetes Social History Preferred Language: Welsh Communication Ability: Effective Assembly Machine Feeder Required: No Beliefs That Will Affect Care: None Current Living Situation: Alone Other Information That Helps Us Care for You: No Feels Safe at Home: Yes Safety Concerns: Feels Safe At This Time Smoking Status: Former smoker Do You Dip or Chew Tobacco: No Second Hand Exposure: No Tobacco Cessation Education Requested by Patient: No Hx Alcohol Use: No Hx Substance Use: No Review of Systems Review of Systems: All systems reviewed & are unremarkable except as noted in HPI & below Physical Exam Constitutional: well developed and well nourished; no acute distress Eyes: PERRL, conjunctivae normal, anicteric sclerae Neck: trachea midline, no thyromegaly Respiratory: normal respiratory effort, lungs clear to auscultation Cardiovascular: Rate/Rhythm: + irregularly irregular Heart Sounds: + murmur Vessels: no JVD Extremities: no edema Gastrointestinal (Abdomen): normal bowel sounds, soft, nontender, no he patosplenomegaly Results & Data Vital Signs (Past 12 Hours) Vital Signs Temp Pulse Pulse Resp BP Pulse Ox 10/02/18 07:15 36.6 C 90 18 122/81 96 10/02/18 06:11 106 H 120/80 96 10/02/18 05:45 111 H 112/70 10/02/18 05:15 102 H 117/71 94 10/02/18 04:35 111 H 129/80 95 10/02/18 03:50 128 H 122/80 95 10/02/18 03:06 130 H 101/63 10/02/18 02:41 132 H 97/50 L 10/02/18 02:20 144 H 118/74 10/02/18 02:05 124 H 102/57 L 10/02/18 01:50 143 H 101/62 10/02/18 01:30 150 H 101/63 10/02/18 01:19 146 H 10/02/18 00:50 37.1 C 146 H 18 122/67 98 10/01/18 23:25 36.8 C 110 H 18 117/78 95 10/01/18 23:15 148 H Laboratory Results 10/02/18 10/02/18 10/02/18 Range/Units 11:05 07:09 04:28 WBC (4.8-10.8) K/uL RBC (4.7-6.1) M/uL Hgb (14.0-18.0) g/dL Hct (42-52) % MCV (80-100) fL MCH (25-34) pg MCHC (32-36) g/dL RDW Std Deviation (36.4-46.3) fL RDW Coeff of Belkys (11.5-14.5) % Plt Count (130-400) K/uL MPV (7.4-10.4) fL Immature Gran % (Auto) % Neut % (Auto) % Lymph % (Auto) % [place] % (Auto) % Eos % (Auto) % Baso % (Auto) % Immature Gran # (Auto) (0.00-0.02) K/uL Neut # (Auto) (1.4-6.5) K/uL Lymph # (Auto) (1.2-3.4) K/uL [place] # (Auto) (0.11-0.59) K/uL Eos # (Auto) (0-0.5) K/uL Baso # (Auto) (0-0.2) K/uL APTT (21.0-31.0) Seconds PTT Ratio Sodium (136-145) mmol/L Potassium (3.5-5.1) mmol/L Chloride (98-107) mmol/L Carbon Dioxide (21-32) mmol/L Anion Gap (3-11) BUN (7-18) mg/dl Creatinine (0.6-1.4) mg/dl Est Cr Clr Drug Dosing ml/min Est GFR ( Amer) Est GFR (Non-Af Amer) BUN/Creatinine Ratio (10-20) Glucose (70-99) mg/dl POC Glucose 209 H (70-99) Calcium (8.5-10.1) mg/dl Magnesium 1.9 (1.8-2.4) mg/dl Total Bilirubin (0.2-1) mg/dl AST (15-37) U/L ALT (12-78) U/L Alkaline Phosphatase (45-117) U/L Troponin I Pending (0-0.045) ng/ml Total Protein (6.4-8.2) gm/dl Albumin (3.4-5.0) gm/dl Globulin (2.5-4.0) gm/dl Albumin/Globulin Ratio (0.9-2) 10/02/18 10/02/18 10/02/18 Range/Units 04:28 04:28 04:28 WBC 10.78 (4.8-10.8) K/uL RBC 4.03 L (4.7-6.1) M/uL Hgb 12.3 L (14.0-18.0) g/dL Hct 35.4 L (42-52) % MCV 87.8 (80-100) fL MCH 30.5 (25-34) pg MCHC 34.7 (32-36) g/dL RDW Std Deviation 43.5 (36.4-46.3) fL RDW Coeff of Belkys 13.5 (11.5-14.5) % Plt Count 217 (130-400) K/uL MPV 10.8 H (7.4-10.4) fL Immature Gran % (Auto) 1.9 % Neut % (Auto) 64.8 % Lymph % (Auto) 24.0 % [place] % (Auto) 8.0 % Eos % (Auto) 1.0 % Baso % (Auto) 0.3 % Immature Gran # (Auto) 0.20 H (0.00-0.02) K/uL Neut # (Auto) 6.99 H (1.4-6.5) K/uL Lymph # (Auto) 2.59 (1.2-3.4) K/uL [place] # (Auto) 0.86 H (0.11-0.59) K/uL Eos # (Auto) 0.11 (0-0.5) K/uL Baso # (Auto) 0.03 (0-0.2) K/uL APTT 49.4 H* (21.0-31.0) Seconds PTT Ratio 1.8 Sodium 138 (136-145) mmol/L Potassium 3.2 L (3.5-5.1) mmol/L Chloride 108 H (98-107) mmol/L Carbon Dioxide 23 (21-32) mmol/L Anion Gap 7.0 (3-11) BUN 23 H (7-18) mg/dl Creatinine 1.74 H (0.6-1.4) mg/dl Est Cr Clr Drug Dosing 28.0 ml/min Est GFR ( Amer) 40.5 Est GFR (Non-Af Amer) 35.0 BUN/Creatinine Ratio 13.3 (10-20) Glucose 205 H (70-99) mg/dl POC Glucose (70-99) Calcium 8.7 (8.5-10.1) mg/dl Magnesium (1.8-2.4) mg/dl Total Bilirubin 0.9 (0.2-1) mg/dl AST 71 H (15-37) U/L ALT 65 (12-78) U/L Alkaline Phosphatase 195 H (45-117) U/L Troponin I < 0.015 (0-0.045) ng/ml Total Protein 6.5 (6.4-8.2) gm/dl Albumin 2.1 L (3.4-5.0) gm/dl Globulin 4.4 H (2.5-4.0) gm/dl Albumin/Globulin Ratio 0.5 L (0.9-2) 10/01/18 10/01/18 10/01/18 Range/Units 23:31 20:22 16:12 WBC (4.8-10.8) K/uL RBC (4.7-6.1) M/uL Hgb (14.0-18.0) g/dL Hct (42-52) % MCV (80-100) fL MCH (25-34) pg MCHC (32-36) g/dL RDW Std Deviation (36.4-46.3) fL RDW Coeff of Belkys (11.5-14.5) % Plt Count (130-400) K/uL MPV (7.4-10.4) fL Immature Gran % (Auto) % Neut % (Auto) % Lymph % (Auto) % [place] % (Auto) % Eos % (Auto) % Baso % (Auto) % Immature Gran # (Auto) (0.00-0.02) K/uL Neut # (Auto) (1.4-6.5) K/uL Lymph # (Auto) (1.2-3.4) K/uL [place] # (Auto) (0.11-0.59) K/uL Eos # (Auto) (0-0.5) K/uL Baso # (Auto) (0-0.2) K/uL APTT (21.0-31.0) Seconds PTT Ratio Sodium (136-145) mmol/L Potassium (3.5-5.1) mmol/L Chloride (98-107) mmol/L Carbon Dioxide (21-32) mmol/L Anion Gap (3-11) BUN (7-18) mg/dl Creatinine (0.6-1.4) mg/dl Est Cr Clr Drug Dosing ml/min Est GFR ( Amer) Est GFR (Non-Af Amer) BUN/Creatinine Ratio (10-20) Glucose (70-99) mg/dl POC Glucose 231 H 195 H (70-99) Calcium (8.5-10.1) mg/dl Magnesium (1.8-2.4) mg/dl Total Bilirubin (0.2-1) mg/dl AST (15-37) U/L ALT (12-78) U/L Alkaline Phosphatase (45-117) U/L Troponin I < 0.015 (0-0.045) ng/ml Total Protein (6.4-8.2) gm/dl Albumin (3.4-5.0) gm/dl Globulin (2.5-4.0) gm/dl Albumin/Globulin Ratio (0.9-2) 10/01/18 Range/Units 11:09 WBC (4.8-10.8) K/uL RBC (4.7-6.1) M/uL Hgb (14.0-18.0) g/dL Hct (42-52) % MCV (80-100) fL MCH (25-34) pg MCHC (32-36) g/dL RDW Std Deviation (36.4-46.3) fL RDW Coeff of Belkys (11.5-14.5) % Plt Count (130-400) K/uL MPV (7.4-10.4) fL Immature Gran % (Auto) % Neut % (Auto) % Lymph % (Auto) % [place] % (Auto) % Eos % (Auto) % Baso % (Auto) % Immature Gran # (Auto) (0.00-0.02) K/uL Neut # (Auto) (1.4-6.5) K/uL Lymph # (Auto) (1.2-3.4) K/uL [place] # (Auto) (0.11-0.59) K/uL Eos # (Auto) (0-0.5) K/uL Baso # (Auto) (0-0.2) K/uL APTT (21.0-31.0) Seconds PTT Ratio Sodium (136-145) mmol/L Potassium (3.5-5.1) mmol/L Chloride (98-107) mmol/L Carbon Dioxide (21-32) mmol/L Anion Gap (3-11) BUN (7-18) mg/dl Creatinine (0.6-1.4) mg/dl Est Cr Clr Drug Dosing ml/min Est GFR ( Amer) Est GFR (Non-Af Amer) BUN/Creatinine Ratio (10-20) Glucose (70-99) mg/dl POC Glucose 180 H (70-99) Calcium (8.5-10.1) mg/dl Magnesium (1.8-2.4) mg/dl Total Bilirubin (0.2-1) mg/dl AST (15-37) U/L ALT (12-78) U/L Alkaline Phosphatase (45-117) U/L Troponin I (0-0.045) ng/ml Total Protein (6.4-8.2) gm/dl Albumin (3.4-5.0) gm/dl Globulin (2.5-4.0) gm/dl Albumin/Globulin Ratio (0.9-2) Diagnostic Findings 2D echocardiogram report reviewed dated 10/01/2018: No evidence of mass or vegetation. This does not rule out endocarditis. Left ventricle is normal in size. LV systolic function is normal. Ejection fraction 55 to 60%. Right ventricular systolic function is normal. Left atrium is mildly dilated. Right atrium is mildly dilated. Mild AR regurgitation. EKG on admission 09/29/2018: Sinus rhythm with 1st degree A-V block PAC's RBBB Bifascicular block EKG on 10/01/2018: Atrial fibrillation with rapid ventricular response RBBB Bifascicular block. Atrial fibrillation has replaced Sinus rhythm Vent. rate has increased BY 67 BPM
[2018-10-02] MEDS: FERROUS SULFATE 325 MG TAB PO SCH (11:35)
[2018-10-02] MEDS: METOPROLOL TARTRATE 25 MG TAB PO SCH ×2 (11:35→19:47)
--- NOTE | 2018-10-02 12:14 | Hospitalist Progress Note ---
Date of Service October 02, 2018 Assessment & Plan (1) Atrial fibrillation with RVR: He has history of right bundle branch block He developed A. fib with RVR last night and was transferred to telemetry Has been on intravenous Cardizem and heparin for now Appreciate cardiology input and recommendations Lopressor has been started Denies any symptoms (2) Bacteremia due to methicillin susceptible Staphylococcus aureus (MSSA): Blood cultures grew staph aureus with MSSA Appreciate ID input and recommendation Echo has been ordered to rule out vegetation MRI of the lumbar and thoracic spine will be done to rule out any infective source/vegetation-have been negative for any discitis and osteomyelitis Antibiotic has been changed to cefazolin We will continue current antibiotics (3) Pyelonephritis: This is an 83-year-old male with a PMH of DM II, HTN, HLD, CKD III, COPD and iron deficiency anemia who presents with weakness and chills x 4 days and was found to have acute pyelonephritis and acute kidney injury. -Afebrile, leukocytosis of 20.75. Non-toxic appearance, vital signs stable -CT abdomen/pelvis with pericystic inflammation, mild to moderate right-sided hydronephrosis with urothelial thickening and perinephric stranding consistent with pyelonephritis -UA with evidence of infection and 3+ urine blood, -urine culture -shows staph likely contaminant -Blood culture-pending -Given dose of Rocephin x 1 in ED. Will continue coverage with Zosyn, to also cover for possible PNA -Consider urology consult if no clinical improvement -Gentle IV fluids -Clinically better and will continue current medications -We will continue current antibiotic -Denies any back pain and/or flank pain (4) Acute kidney injury superimposed on chronic kidney disease: Cr elevated at 1.91 (baseline ~1.2-1.4), has CKD III at baseline -In setting of poor PO intake, infection -Gentle IV fluids, hold lisinopril and lasix -Creatinine has been improving and fluctuating (5) Abnormal gall bladder diagnostic imaging: CT abd/pelvis with evidence of gallbladder distention and cindy-cholecystic stranding concerning for cholecystitis -Unremarkable abdominal exam -Appreciate surgery input and recommendation -HIDA scan did not show any evidence of acute cholecystitis - (6) Abnormal CXR: CXR with evidence of infiltrate at R base -Given empiric dose of Levaquin in ED -H/o URI 4 months ago, continues to have intermittent cough -No productive sputum, wheezing or SOB. O2 saturation 99% on RA -Receiving Zosyn, follow blood and sputum cultures -Doubt any pneumonia (7) Diabetes mellitus, type II: A1c of 7.9 in August 2018 -Hold home metformin -SSI while in-patient -BSG AC HS (8) Hypertension: Normotensive -Continue atenolol -Holding Lisinopril, Lasix in setting of ELVIN (9) COPD (chronic obstructive pulmonary disease): Continue Advair, Albuterol PRN No acute exacerbation (10) SUNDAY (iron deficiency anemia): Hgb of 12.6 (baseline hgb 12-13) -Has not been taking iron supplement due to constipation -Encouraged to restart, will also add Colace 100mg daily, PRN Miralax (11) HLD (hyperlipidemia): Continue statin DVT Ppx: SCDs in setting of hematuria Code status: FULL per discussion with patient PCP: Radha Dispo: Admitted to med tele. Discharge planning ordered (83yo and lives alone). PT/OT evaluations ordered. Patient seen in collaboration with Dr. Farley. Please see addendum. (12) Abnormal computed tomography of abdomen and pelvis: .The gallbladder is distended. The gallbladder wall appears thickened and there is pericholecystic stranding. The appearance is concerning for acute cholecystitis. Clinical and laboratory correlation will be required. Ultrasound could be considered for further assessment if clinically warranted. HIDA scan ruled out acute cholecystitis The bladder is circumferentially thick-walled and there is pericystic inflammation. Correlate clinically and with urinalysis for evidence of cystitis. Has right pyelonephritis with hydronephrosis but no calculus identified We need to have outpatient urology appointment on discharge Cirrhotic liver morphology. Findings are consistent with chronic pancreatitis. 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 Follow-up with surgery as an outpatient There is a large fat-containing left-sided lumbar hernia. Nonsymptomatic Subjective 09/30 Patient seen and examined medical telemetry unit This is an 83-year-old male with a PMH of DM II, HTN, HLD, CKD III, COPD and iron deficiency anemia who presents with weakness and chills x 4 days He was admitted with right flank pain with right hydronephrosis noted to have an abnormal CT of the abdomen and pelvis as noted below He has been feeling a lot better today Denies any significant symptoms 10/01 Patient is seen and examined. Remains asymptomatic but blood culture came back positive for staph aureus MSSA Denies any symptoms as of today 10/02 The patient was seen and examined in telemetry unit He was transferred to telemetry last night with Thelma santana with RVR Denies any symptoms this morning Electrolytes have been replaced Review of Systems Review of Systems: All systems reviewed and are unremarkable except as noted below Gastrointestinal: No more flank and upper back pain Physical Exam Physical Exam: Lying in bed comfortably Constitutional: well developed and well nourished; no acute distress Eyes: PERRL, conjunctivae normal, anicteric sclerae ENMT: external ear and nose normal, oropharynx normal Neck: trachea midline, no thyromegaly Respiratory: normal respiratory effort, lungs clear to auscultation Cardiovascular: RRR, no murmur, no edema Gastrointestinal (Abdomen): Inspection/Auscultation: abdomen normal to inspection and normal bowel sounds Percussion/Palpation: + abdomen tender (Mildly tender right renal angle) Musculoskeletal: Extremities: extremities normal to inspection Skin: no rashes, warm and dry Neurologic: PERRL, EOMI, accommodation nl, no face palsy, no dysarthria Lymphatic: no cervical or axillary lymphadenopathy Results & Data Vital Signs (Past 12 Hours) Vital Signs Temp Pulse Resp BP Pulse Ox 10/02/18 11:01 36.5 C 77 18 104/68 96 10/02/18 07:15 36.6 C 90 18 122/81 96 10/02/18 06:11 106 H 120/80 96 10/02/18 05:45 111 H 112/70 10/02/18 05:15 102 H 117/71 94 10/02/18 04:35 111 H 129/80 95 10/02/18 03:50 128 H 122/80 95 10/02/18 03:06 130 H 101/63 10/02/18 02:41 132 H 97/50 L 10/02/18 02:20 144 H 118/74 10/02/18 02:05 124 H 102/57 L 10/02/18 01:50 143 H 101/62 10/02/18 01:30 150 H 101/63 10/02/18 01:19 146 H 101/63 10/02/18 00:50 37.1 C 146 H 18 122/67 98
--- NOTE | 2018-10-02 13:16 | Infectious Disease Progress Nt ---
Date of Service October 02, 2018 Assessment & Plan (1) Bacteremia due to methicillin susceptible Staphylococcus aureus (MSSA): 83-year-old male with MSSA bacteremia, with evidence of pyelonephritis as well as possible cholecystitis. Not clear whether infection began in urinary tract or whether patient had secondary seeding from bacteremia. Transthoracic echocardiogram negative for vegetation or significant valvular abnormality, and MRI scanning is unremarkable. Likely will will require 2 weeks of IV antibiotics. Will continue Ancef. Will follow. (2) Pyelonephritis: Subjective Patient seen in follow-up for staph aureus bacteremia. No new complaints today. Remains afebrile. Transthoracic echo negative for obvious vegetation or significant valvular disease. MRI of thoracic and lumbar spine also without evidence of infection. Tolerating Ancef. Review of Systems Review of Systems: All systems reviewed & are unremarkable except as noted in HPI & below Physical Exam Constitutional: WD/WN, vitals as above comfortable; no acute distress Eyes: PERRL, conjunctivae normal, anicteric sclerae ENMT: external ear and nose normal, oropharynx normal Neck: trachea midline, no thyromegaly neck nontender Respiratory: normal respiratory effort, lungs clear to auscultation normal percussion; does not use accessory muscles Cardiovascular: Rate/Rhythm: regular rate and regular rhythm Heart Sounds: normal S1 and normal S2; no gallop, no murmur and no cardiac rub Vessels: normal peripheral pulses; no JVD Gastrointestinal (Abdomen): normal bowel sounds, soft, nontender, no hepatosplenomegaly Musculoskeletal: no cyanosis or clubbing, extremities motor strength 5/5 Spine: thoracic spine normal to inspection and lumbar spine normal to inspection; no cervical spinal tenderness Skin: no rashes, warm and dry normal turgor; no lesions Neurologic: patellar DTR's 2+ bilat, sensation intact no focal motor deficits Psychiatric: A+Ox3, euthymic affect Orientation: cooperative Lymphatic: no cervical or axillary lymphadenopathy no inguinal lymphadenopathy Results & Data Vital Signs (Past 12 Hours) Vital Signs Temp Pulse Resp BP Pulse Ox 10/02/18 11:01 36.5 C 77 18 104/68 96 10/02/18 07:15 36.6 C 90 18 122/81 96 10/02/18 06:11 106 H 120/80 96 10/02/18 05:45 111 H 112/70 10/02/18 05:15 102 H 117/71 94 10/02/18 04:35 111 H 129/80 95 10/02/18 03:50 128 H 122/80 95 10/02/18 03:06 130 H 101/63 10/02/18 02:41 132 H 97/50 L 10/02/18 02:20 144 H 118/74 10/02/18 02:05 124 H 102/57 L 10/02/18 01:50 143 H 101/62 10/02/18 01:30 150 H 101/63 10/02/18 01:19 146 H 101/63 Laboratory Results Short CBC 10/02/18 Range/Units 04:28 WBC 10.78 (4.8-10.8) K/uL Hgb 12.3 L (14.0-18.0) g/dL Hct 35.4 L (42-52) % Plt Count 217 (130-400) K/uL BMP 10/02/18 04:28 Sodium 138 Potassium 3.2 L Chloride 108 H Carbon Dioxide 23 BUN 23 H Creatinine 1.74 H Glucose 205 H Calcium 8.7 Cardiac Enzymes 10/01/18 10/02/18 10/02/18 Range/Units 23:31 04:28 11:05 Troponin I < 0.015 < 0.015 0.019 (0-0.045) ng/ml Liver Function 10/02/18 Range/Units 04:28 Total Bilirubin 0.9 (0.2-1) mg/dl AST 71 H (15-37) U/L ALT 65 (12-78) U/L Alkaline Phosphatase 195 H (45-117) U/L Albumin 2.1 L (3.4-5.0) gm/dl Diagnostic Findings Microbiology 09/29/18 17:26 Blood Blood Culture - Preliminary Staphylococcus aureus 09/29/18 17:32 Blood Blood Culture - Final Staphylococcus aureus 09/29/18 12:10 Urine,Clean Catch Urine Culture - Final Staphylococcus aureus Staphylococcus aureus#2 MR thoracic spine wo con HISTORY: 83 years-old Male r/o infection acute mid and low back pain with clinical concern for possible discitis osteomyelitis COMPARISON: MRI lumbar spine of same day, CT abdomen and pelvis 09/29/2018. TECHNIQUE: Multiplanar multisequence MRI of the thoracic spine was obtained without the use of IV contrast. FINDINGS: The territory sales manager medical localizer images demonstrate no gross extraspinal abnormality. The heart appears enlarged. Tortuosity about the descending thoracic aorta. 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 Small right pleural effusion. Trace left pleural effusion. Urothelial thickening about the right kidney redemonstrated with perinephric edema. There is no acute fracture, subluxation or focal bone marrow edema. There is an indeterminate ovoid T1 hypointense and T2 hyperintense lesion of the subcutaneous tissues of the right paraspinal distribution at the level of T3, possibly reflecting a sebaceous cyst. Signal within the imaged spinal cord appears unremarkable. Multilevel disc space narrowing with spondylitic spurring and facet arthrosis. Remote appearing anterior endplate wedge deformity of 25% involves CT 3 vertebral body. No evidence of discitis osteomyelitis. No high- grade central canal or foraminal narrowing identified. IMPRESSION: 1. No acute fracture, subluxation or focal bone marrow edema. 2. No evidence of acute discitis/osteomyelitis. 3. Remote T3 compression deformity. 4. Right greater than left bilateral pleural effusions. 5. 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 Please refer to CT abdomen and pelvis 09/29/2018 for further details. The above report was generated using voice recognition software. It may contain grammatical, syntax or spelling errors. Electronically signed by: Michael Talbert M.D. 10/01/2018 7:58 PM Dictated: 10/01/181947 Transcribed: 10/01/181947
[2018-10-02] MEDS ORDERED: Nursing to Pharmacy Communication ONE (16:22)
[2018-10-02 17:01] LABS: BUN Creatinine Ratio 13.7 (10-20); Calcium 9.4 mg/dl (8.5-10.1); Creatinine Clr Calc Pharmacy 30.1 ml/min; Est GFR (African American) 44.2; Est GFR (Non-African American) 38.1; Potassium 3.8 mmol/L (3.5-5.1)
[2018-10-02] MEDS: Heparin Adult LOW DOSE Wt-Based Dextrose 5% 25,000 units/500 mL IV SCH (23:56)
[2018-10-03] MEDS: CEFAZOLIN 1000MG 1,000 MG/7.5 ML SYR IV SCH ×3 (03:01→23:17)
[2018-10-03] MEDS: Heparin Adult LOW DOSE Wt-Based Dextrose 5% 25,000 units/500 mL IV SCH (03:02)
[2018-10-03 08:11] LABS: Partial Thromboplastin Ratio 1.3; Partial Thromboplastin Time 34.2 Seconds (21.0-31.0)
[2018-10-03] MEDS: INSULIN ASPART 100 UNITS/ML 3 ML PEN SC SCH ×4 (08:13→21:17)
[2018-10-03] MEDS: FLUTICASONE/SALMETEROL 100/50 (ADVAIR) 14 PUFF/1 INHALER INH SCH ×2 (08:14→21:16)
[2018-10-03] MEDS: MULTIVITAMIN TAB PO SCH (08:15)
[2018-10-03] MEDS: DOCUSATE SODIUM 100 MG CAP PO SCH (08:15)
[2018-10-03] MEDS: FERROUS SULFATE 325 MG TAB PO SCH (08:15)
[2018-10-03] MEDS: ATORVASTATIN 10 MG TAB PO SCH (08:15)
[2018-10-03] MEDS: METOPROLOL TARTRATE 25 MG TAB PO SCH ×3 (08:15→21:17)
[2018-10-03 08:17] LABS: BUN Creatinine Ratio 13.5 (10-20); Calcium 9.1 mg/dl (8.5-10.1); Creatinine Clr Calc Pharmacy 29.9 ml/min; Est GFR (African American) 43.9; Est GFR (Non-African American) 37.8; Potassium 3.9 mmol/L (3.5-5.1)
[2018-10-03] MEDS: dilTIAZem HCl 125 MG in DEXTROSE 5% 100 ML IV SCH ×2 (08:19→19:16)
--- NOTE | 2018-10-03 11:42 | Cardiology Progress Note ---
Date of Service October 03, 2018 Assessment & Plan (1) Atrial fibrillation with RVR: Persistent atrial fibrillation with variable rates noted this morning. Continue IV heparin with probable transition to Coumadin. Given his age and chronic renal insufficiency he is not an ideal candidate for DOAC. Increase metoprolol to 25 mg 3 times daily. Continue to titrate diltiazem for rate control. Stop home atenolol. No history of atrial fibrillation. Likely new onset in setting of acute bacterem ia and electrolyte disturbance. No amiodarone given elevated LFT's Echo with normal LV function. Patient is asymptomatic. Case discussed with Dr. Schreiber (2) Bacteremia due to methicillin susceptible Staphylococcus aureus (MSSA): Continue antibiotics per ID and hospitalist. Echo without evidence of vegetation. (3) Acute kidney injury superimposed on chronic kidney disease: (4) Hypertension: Supervising Physician Co-Signing Physician Notes Supervising Physician Attestation: I have personally performed a history and physical examination on the patient. I agree with the physician cook's assistant's findings and plan as documented with the following additions. Subjective: Patient sitting out of bed in chair. He remains in atrial fibrillation with rates in the range of the mid 80 bpm range. He however is on diltiazem infusion at 15 mg/h. Exam: Irregular rhythm, no murmurs Lungs clear to auscultation Data: Most recent PTT was 34.2 seconds Assessment and Plan: Persistent atrial fibrillation, newly diagnosed in the setting of staph aureus bacteremia -Metoprolol tartrate increased to 25 mg 3 times daily, add oral diltiazem, and wean infusion -Continue heparin infusion, no invasive procedures tentatively planned therefore we will start Coumadin for stroke prophylaxis. Check INR tomorrow. Uri Schreiber, DO Subjective . Patient resting comfortably in bed this morning. He denies palpitations or tachypalpitations. No dizziness, syncope or near syncope. No chest pain or shortness of breath. Abdominal discomfort now improved. No fever cough or chills. Review of Systems Review of Systems: All systems reviewed & are unremarkable except as noted in HPI & below Physical Exam Constitutional: well developed and well nourished; no acute distress Eyes: PERRL, conjunctivae normal, anicteric sclerae Neck: trachea midline, no thyromegaly Respiratory: normal respiratory effort, lungs clear to auscultation Cardiovascular: Rate/Rhythm: + tachycardic and + irregularly irregular Heart Sounds: + murmur Vessels: no JVD Extremities: no edema Gastrointestinal (Abdomen): normal bowel sounds, soft, nontender, no hepatosplenomegaly Results & Data Vital Signs (Past 12 Hours) Vital Signs Temp Pulse Pulse Resp BP Pulse Ox 10/03/18 11:06 36.6 C 85 17 104/60 95 10/03/18 08:06 37.0 C 128 H 19 98/70 L 97 10/03/18 05:10 104/61 10/03/18 02:56 36.8 C 101 H 17 123/68 95 10/03/18 02:03 114 H 10/03/18 01:50 86 93/59 L 10/03/18 01:13 108/67 10/03/18 00:34 103/59 L Laboratory Results 10/03/18 10/03/18 10/03/18 Range/Units 07:32 07:32 07:30 APTT 34.2 H (21.0-31.0) Seconds PTT Ratio 1.3 Sodium 138 (136-145) mmol/L Potassium 3.9 (3.5-5.1) mmol/L Chloride 109 H (98-107) mmol/L Carbon Dioxide 23 (21-32) mmol/L Anion Gap 7.0 (3-11) BUN 22 H (7-18) mg/dl Creatinine 1.63 H (0.6-1.4) mg/dl Est Cr Clr Drug Dosing 29.9 ml/min Est GFR ( Amer) 43.9 Est GFR (Non-Af Amer) 37.8 BUN/Creatinine Ratio 13.5 (10-20) Glucose 186 H (70-99) mg/dl POC Glucose 175 H (70-99) Calcium 9.1 (8.5-10.1) mg/dl Troponin I (0-0.045) ng/ml 10/02/18 10/02/18 10/02/18 Range/Units 20:29 16:25 16:15 APTT (21.0-31.0) Seconds PTT Ratio Sodium 138 (136-145) mmol/L Potassium 3.8 D (3.5-5.1) mmol/L Chloride 108 H (98-107) mmol/L Carbon Dioxide 22 (21-32) mmol/L Anion Gap 8.0 (3-11) BUN 22 H (7-18) mg/dl Creatinine 1.62 H (0.6-1.4) mg/dl Est Cr Clr Drug Dosing 30.1 ml/min Est GFR ( Amer) 44.2 Est GFR (Non-Af Amer) 38.1 BUN/Creatinine Ratio 13.7 (10-20) Glucose 159 H (70-99) mg/dl POC Glucose 161 H 160 H (70-99) Calcium 9.4 (8.5-10.1) mg/dl Troponin I (0-0.045) ng/ml 10/02/18 10/02/18 Range/Units 11:15 11:05 APTT (21.0-31.0) Seconds PTT Ratio Sodium (136-145) mmol/L Potassium (3.5-5.1) mmol/L Chloride (98-107) mmol/L Carbon Dioxide (21-32) mmol/L Anion Gap (3-11) BUN (7-18) mg/dl Creatinine (0.6-1.4) mg/dl Est Cr Clr Drug Dosing ml/min Est GFR ( Amer) Est GFR (Non-Af Amer) BUN/Creatinine Ratio (10-20) Glucose (70-99) mg/dl POC Glucose 195 H (70-99) Calcium (8.5-10.1) mg/dl Troponin I 0.019 (0-0.045) ng/ml Diagnostic Findings Telemetry reviewed: Persistent atrial fibrillation noted. Heart rates variable ranging 110 bpm to 150 bpm with minimal exertion. Patient is asymptomatic.
[2018-10-03] MEDS: dilTIAZem HCL 120 MG CAPCR PO SCH (13:47)
[2018-10-03 15:15] LABS: Partial Thromboplastin Ratio 1.4; Partial Thromboplastin Time 38.8 Seconds (21.0-31.0)
--- NOTE | 2018-10-03 15:37 | Infectious Disease Progress Nt ---
Date of Service October 03, 2018 Assessment & Plan (1) Bacteremia due to methicillin susceptible Staphylococcus aureus (MSSA): 83-year-old male with MSSA bacteremia, with evidence of pyelonephritis as well as possible cholecystitis. Not clear whether infection began in urinary tract or whether patient had secondary seeding from bacteremia. Transthoracic echocardiogram negative for vegetation or significant valvular abnormality, and MRI scanning is unremarkable. Likely will will require 2 weeks of IV antibiotics. Follow-up blood cultures have been ordered. Will continue Ancef. Will follow. (2) Pyelonephritis: Subjective Patient seen in follow-up for staph aureus bacteremia. Offers no new complaints today. No shortness of breath or chest pain. Remains afebrile. Continues to tolerate Ancef. Review of Systems Review of Systems: All systems reviewed & are unremarkable except as noted in HPI & below Physical Exam Constitutional: WD/WN, vitals as above comfortable; no acute distress Eyes: PERRL, conjunctivae normal, anicteric sclerae ENMT: external ear and nose normal, oropharynx normal Neck: trachea midline, no thyromegaly neck nontender Respiratory: normal respiratory effort, lungs clear to auscultation normal percussion; does not use accessory muscles Cardiovascular: Rate/Rhythm: regular rate and regular rhythm Heart Sounds: normal S1 and normal S2; no gallop, no murmur and no cardiac rub Vessels: normal peripheral pulses; no JVD Gastrointestinal (Abdomen): normal bowel sounds, soft, nontender, no hepatosplenomegaly Musculoskeletal: no cyanosis or clubbing, extremities motor strength 5/5 Spine: thoracic spine normal to inspection and lumbar spine normal to inspection; no cervical spinal tenderness Skin: no rashes, warm and dry normal turgor; no lesions Neurologic: patellar DTR's 2+ bilat, sensation intact no focal motor deficits Psychiatric: A+Ox3, euthymic affect Orientation: cooperative Lymphatic: no cervical or axillary lymphadenopathy no inguinal lymphadenopathy Results & Data Vital Signs (Past 12 Hours) Vital Signs Temp Pulse Resp BP Pulse Ox 10/03/18 15:32 36.8 C 79 18 109/66 97 10/03/18 11:06 36.6 C 85 17 104/60 95 10/03/18 08:06 37.0 C 128 H 19 98/70 L 97 10/03/18 05:10 104/61 Laboratory Results BMP 10/02/18 10/03/18 16:25 07:32 Sodium 138 138 Potassium 3.8 D 3.9 Chloride 108 H 109 H Carbon Dioxide 22 23 BUN 22 H 22 H Creatinine 1.62 H 1.63 H Glucose 159 H 186 H Calcium 9.4 9.1 Diagnostic Findings Microbiology 09/29/18 17:26 Blood Blood Culture - Preliminary Staphylococcus aureus 09/29/18 17:32 Blood Blood Culture - Final Staphylococcus aureus 09/29/18 12:10 Urine,Clean Catch Urine Culture - Final Staphylococcus aureus Staphylococcus aureus#2
[2018-10-03] MEDS ORDERED: HEPARIN IV BOLUS 4,500 UNITS in SYRINGE 0 ML IV ONE (16:15)
[2018-10-03] MEDS: WARFARIN SOD 4 MG TAB PO SCH (16:40)
--- NOTE | 2018-10-03 17:36 | Hospitalist Progress Note ---
Date of Service October 03, 2018 Assessment & Plan (1) Atrial fibrillation with RVR: He has history of right bundle branch block He developed A. fib with RVR last night and was transferred to telemetry Has been on intravenous Cardizem and heparin for now Appreciate cardiology input and recommendations Lopressor has been started Denies any symptoms Rate is not yet controlled and has been on Cardizem drip and beta-marvin Continue heparin and Coumadin was added Remains free of any symptoms (2) Bacteremia due to methicillin susceptible Staphylococcus aureus (MSSA): Blood cultures grew staph aureus with MSSA Appreciate ID input and recommendation Echo has been ordered to rule out vegetation MRI of the lumbar and thoracic spine will be done to rule out any infective source/vegetation-have been negative for any discitis and osteomyelitis Antibiotic has been changed to cefazolin We will continue current antibiotics Will need IV antibiotic for a total of 2 weeks (3) Pyelonephritis: This is an 83-year-old male with a PMH of DM II, HTN, HLD, CKD III, COPD and iron deficiency anemia who presents with weakness and chills x 4 days and was found to have acute pyelonephritis and acute kidney injury. -Afebrile, leukocytosis of 20.75. Non-toxic appearance, vital signs stable -CT abdomen/pelvis with pericystic inflammation, mild to moderate right-sided hydronephrosis with urothelial thickening and perinephric stranding consistent with pyelonephritis -UA with evidence of infection and 3+ urine blood, -urine culture -shows staph likely contaminant -Blood culture-pending -Given dose of Rocephin x 1 in ED. Will continue coverage with Zosyn, to also cover for possible PNA -Consider urology consult if no clinical improvement -Gentle IV fluids -Clinically better and will continue current medications -We will continue current antibiotic -Denies any back pain and/or flank pain -Treatment as above (4) Acute kidney injury superimposed on chronic kidney disease: Cr elevated at 1.91 (baseline ~1.2-1.4), has CKD III at baseline -In setting of poor PO intake, infection -Gentle IV fluids, hold lisinopril and lasix -Creatinine has been improving and fluctuating (5) Abnormal gall bladder diagnostic imaging: CT abd/pelvis with evidence of gallbladder distention and cindy-cholecystic stranding concerning for cholecystitis -Unremarkable abdominal exam -Appreciate surgery input and recommendation -HIDA scan did not show any evidence of acute cholecystitis - (6) Abnormal CXR: CXR with evidence of infiltrate at R base -Given empiric dose of Levaquin in ED -H/o URI 4 months ago, continues to have intermittent cough -No productive sputum, wheezing or SOB. O2 saturation 99% on RA -Receiving Zosyn, follow blood and sputum cultures -Doubt any pneumonia (7) Diabetes mellitus, type II: A1c of 7.9 in August 2018 -Hold home metformin -SSI while in-patient -BSG AC HS (8) Hypertension: Normotensive -Continue atenolol -Holding Lisinopril, Lasix in setting of ELVIN (9) COPD (chronic obstructive pulmonary disease): Continue Advair, Albuterol PRN No acute exacerbation (10) SUNDAY (iron deficiency anemia): Hgb of 12.6 (baseline hgb 12-13) -Has not been taking iron supplement due to constipation -Encouraged to restart, will also add Colace 100mg daily, PRN Miralax (11) HLD (hyperlipidemia): Continue statin DVT Ppx: SCDs in setting of hematuria Code status: FULL per discussion with patient PCP: Radha Dispo: Admitted to med tele. Discharge planning ordered (83yo and lives alone). PT/OT evaluations ordered. (12) Abnormal computed tomography of abdomen and pelvis: .The gallbladder is distended. The gallbladder wall appears thickened and there is pericholecystic stranding. The appearance is concerning for acute cholecystitis. Clinical and laboratory correlation will be required. Ultrasound could be considered for further assessment if clinically warranted. HIDA scan ruled out acute cholecystitis The bladder is circumferentially thick-walled and there is pericystic inflammation. Correlate clinically and with urinalysis for evidence of cystitis. Has right pyelonephritis with hydronephrosis but no calculus identified We need to have outpatient urology appointment on discharge Cirrhotic liver morphology. Findings are consistent with chronic pancreatitis. 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 Follow-up with surgery as an outpatient There is a large fat-containing left-sided lumbar hernia. Nonsymptomatic Subjective 09/30 Patient seen and examined medical telemetry unit This is an 83-year-old male with a PMH of DM II, HTN, HLD, CKD III, COPD and iron deficiency anemia who presents with weakness and chills x 4 days He was admitted with right flank pain with right hydronephrosis noted to have an abnormal CT of the abdomen and pelvis as noted below He has been feeling a lot better today Denies any significant symptoms 10/01 Patient is seen and examined. Remains asymptomatic but blood culture came back positive for staph aureus MSSA Denies any symptoms as of today 10/02 The patient was seen and examined in telemetry unit He was transferred to telemetry last night with Thelma santana with RVR Denies any symptoms this morning Electrolytes have been replaced 10/03 Patient was seen and examined in presence of the daughter Still noted to have increased heart rate especially on ambulation Cardizem drip has been and beta-marvin doses have been increased Heparin continued and Coumadin added Not a candidate for DOAC Review of Systems Review of Systems: All systems reviewed and are unremarkable except as noted below Neurologic: + generalized weakness Physical Exam Physical Exam: No apparent distress at rest Constitutional: well developed and well nourished; no acute distress Eyes: PERRL, conjunctivae normal, anicteric sclerae ENMT: external ear and nose normal, oropharynx normal Neck: trachea midline, no thyromegaly Respiratory: normal respiratory effort, lungs clear to auscultation Cardiovascular: RRR, no murmur, no edema Gastrointestinal (Abdomen): Inspection/Auscultation: abdomen normal to inspection and normal bowel sounds Percussion/Palpation: + abdomen tender (Mildly tender right renal angle) Musculoskeletal: Extremities: extremities normal to inspection Skin: no rashes, warm and dry Neurologic: PERRL, EOMI, accommodation nl, no face palsy, no dysarthria Lymphatic: no cervical or axillary lymphadenopathy Results & Data Vital Signs (Past 12 Hours) Vital Signs Temp Pulse Resp BP Pulse Ox 10/03/18 15:32 36.8 C 79 18 109/66 97 10/03/18 11:06 36.6 C 85 17 104/60 95 10/03/18 08:06 37.0 C 128 H 19 98/70 L 97 Laboratory Results [facility] 10/03/18 07:32 Sodium 138 Potassium 3.9 Chloride 109 H Carbon Dioxide 23 BUN 22 H Creatinine 1.63 H Glucose 186 H Calcium 9.1 Medications Administered Current Inpatient Medications Acetaminophen (Tylenol) 650 mg PO Q4H PRN PRN Reason: Pain or Fever Stop: 10/29/18 17:31 Albuterol (Ventolin Hfa) 2 puffs INH QID PRN PRN Reason: Shortness Of Breath Or Wheezin Atorvastatin Calcium (Lipitor) 10 mg PO DAILY [facility] Stop: 10/30/18 08:59 Last Admin: 10/03/18 08:15 Dose: 10 mg Documented by: Dextrose (Dextrose 50%) 25 - 50 ml IV UD PRN; Protocol PRN Reason: Hypoglycemia Protocol Stop: 10/29/18 17:31 Diltiazem HCl (Cardizem Cd) 120 mg PO QAM [facility] Stop: 11/02/18 13:14 Last Admin: 10/03/18 13:47 Dose: 120 mg Documented by: Docusate Sodium (Colace) 100 mg PO DAILY [facility] Stop: 10/29/18 18:14 Last Admin: 10/03/18 08:15 Dose: Not Given Documented by: Ferrous Sulfate (Feosol) 325 mg PO DAILY [facility] Stop: 10/30/18 08:59 Last Admin: 10/03/18 08:15 Dose: 325 mg Documented by: Glucagon (Glucagen) 1 mg SQ UD PRN; Protocol PRN Reason: Hypoglycemia Protocol Stop: 10/29/18 17:31 Glucose (Glucose 40%) 15 - 30 gm PO UD PRN; Protocol PRN Reason: Hypoglycemia Protocol Stop: 10/29/18 17:31 Glucose (Dex4 Glucose) 4 - 8 tabs PO UD PRN; Protocol PRN Reason: Hypoglycemia Protocol Stop: 10/29/18 17:31 Heparin Sodium/Dextrose (Heparin Sodium/Dextrose) 25,000 units in 500 mls @ 22 mls/hr IV .[id number] [facility]; Protocol Stop: 10/31/18 22:29 Last Titration: 10/03/18 16:11 Dose: 1,100 units/hr, 22 mls/hr Documented by: Diltiazem HCl 125 mg/ Dextrose 125 mls @ 10 mls/hr IV .[id number] [facility]; Protocol Stop: 10/31/18 23:29 Last Titration: 10/03/18 08:21 Dose: 10 mg/hr, 10 mls/hr Documented by: Cefazolin Sodium (Ancef 1000mg) 1,000 mg in 7.5 mls @ 2.5 mls/min IV Q12H [facility]; Protocol Stop: 10/15/18 11:59 Insulin Aspart (Novolog Flexpen) 0 units SC ACHS [facility] Stop: 10/29/18 20:59 Last Admin: 10/03/18 12:08 Dose: 5 units Documented by: Metoprolol Tartrate (Lopressor) 25 mg PO TID [facility] Stop: 11/02/18 13:59 Last Admin: 10/03/18 13:47 Dose: 25 mg Documented by: Miscellaneous (Carbohydrates For Hypoglycemia) 15 - 30 gm PO UD PRN PRN Reason: Hypoglycemia Treatment Stop: 10/29/18 17:31 Multivitamins (Multivitamin Tab) 1 tab PO DAILY [facility] Stop: 10/30/18 08:59 Last Admin: 10/03/18 08:15 Dose: 1 tab Documented by: Polyethylene Glycol (Miralax Powder Packet) 17 gm PO DAILY PRN PRN Reason: Constipation Stop: 10/29/18 17:31 Fluticasone/Salmeterol (Advair Diskus 100/50) 1 puffs INH BID [facility] Stop: 10/29/18 20:59 Last Admin: 10/03/18 08:14 Dose: 1 puffs Documented by: Warfarin Sodium (Coumadin) 4 mg PO DAILY@1600 [facility] Stop: 11/02/18 15:59 Last Admin: 10/03/18 16:40 Dose: 4 mg Documented by:
[2018-10-03 23:13] LABS: Partial Thromboplastin Ratio 2.2
[2018-10-03 23:37] LABS: Partial Thromboplastin Time 59.1 Seconds (21.0-31.0)
[2018-10-04] MEDS: Heparin Adult LOW DOSE Wt-Based Dextrose 5% 25,000 units/500 mL IV SCH (05:27)
[2018-10-04 07:24] LABS: Hematocrit (blood only) 35.9 % (42-52); Hemoglobin 12.5 g/dL (14.0-18.0); Mean Corpuscular Hgb Conc 34.8 g/dL (32-36); Mean Corpuscular Volume 88.6 fL (80-100); Mean Platelet Volume 10.8 fL (7.4-10.4); Nucleated RBC # (auto) 0.02 K/uL (0-0); Nucleated RBC % (auto) 0.2 %; Platelet Count 304 K/uL (130-400); RDW Coefficient of Variation 13.8 % (11.5-14.5); RDW Standard Deviation 44.7 fL (36.4-46.3); Red Blood Count 4.05 M/uL (4.7-6.1); White Blood Count 12.73 K/uL (4.8-10.8)
[2018-10-04 07:52] LABS: INR 1.2 (0.9-1.1); Partial Thromboplastin Ratio 1.8; Prothrombin Time 12.2 Seconds (9.0-12.0)
[2018-10-04 07:53] LABS: BUN Creatinine Ratio 12.4 (10-20); Calcium 9.3 mg/dl (8.5-10.1); Est GFR (African American) 42.3; Est GFR (Non-African American) 36.5; Magnesium 2.1 mg/dl (1.8-2.4); Potassium 3.9 mmol/L (3.5-5.1)
[2018-10-04 07:56] LABS: Partial Thromboplastin Time 47.6 Seconds (21.0-31.0)
[2018-10-04] MEDS: INSULIN ASPART 100 UNITS/ML 3 ML PEN SC SCH ×4 (08:04→20:33)
[2018-10-04] MEDS: FLUTICASONE/SALMETEROL 100/50 (ADVAIR) 14 PUFF/1 INHALER INH SCH ×2 (08:04→20:33)
[2018-10-04] MEDS: FERROUS SULFATE 325 MG TAB PO SCH (08:05)
[2018-10-04] MEDS: DOCUSATE SODIUM 100 MG CAP PO SCH (08:05)
[2018-10-04] MEDS: dilTIAZem HCL 120 MG CAPCR PO SCH (08:05)
[2018-10-04] MEDS: ATORVASTATIN 10 MG TAB PO SCH (08:05)
[2018-10-04] MEDS: MULTIVITAMIN TAB PO SCH (08:06)
[2018-10-04] MEDS: METOPROLOL TARTRATE 25 MG TAB PO SCH ×3 (08:06→20:33)
[2018-10-04] MEDS: CEFAZOLIN 1000MG 1,000 MG/7.5 ML SYR IV SCH (12:09)
--- NOTE | 2018-10-04 16:19 | Hospitalist Progress Note ---
Date of Service October 04, 2018 Assessment & Plan (1) Atrial fibrillation with RVR: He has history of right bundle branch block He developed A. fib with RVR last night and was transferred to telemetry Has been on intravenous Cardizem and heparin for now Appreciate cardiology input and recommendations Lopressor has been started Denies any symptoms Rate is not yet controlled and has been on Cardizem drip and beta-marvin Continue heparin and Coumadin was added Remains free of any symptoms Rate is not yet totally controlled Cardizem drip has been off and now continuing with beta-marvin (2) Bacteremia due to methicillin susceptible Staphylococcus aureus (MSSA): Blood cultures grew staph aureus with MSSA Appreciate ID input and recommendation Echo has been ordered to rule out vegetation MRI of the lumbar and thoracic spine will be done to rule out any infective source/vegetation-have been negative for any discitis and osteomyelitis Antibiotic has been changed to cefazolin We will continue current antibiotics Will need IV antibiotic for a total of 2 weeks in total (3) Pyelonephritis: This is an 83-year-old male with a PMH of DM II, HTN, HLD, CKD III, COPD and iron deficiency anemia who presents with weakness and chills x 4 days and was found to have acute pyelonephritis and acute kidney injury. -Afebrile, leukocytosis of 20.75. Non-toxic appearance, vital signs stable -CT abdomen/pelvis with pericystic inflammation, mild to moderate right-sided hydronephrosis with urothelial thickening and perinephric stranding consistent with pyelonephritis -UA with evidence of infection and 3+ urine blood, -urine culture -shows staph likely contaminant -Blood culture-pending -Given dose of Rocephin x 1 in ED. Will continue coverage with Zosyn, to also cover for possible PNA -Consider urology consult if no clinical improvement -Gentle IV fluids -Clinically better and will continue current medications -We will continue current antibiotic -Denies any back pain and/or flank pain -Clinically a lot better (4) Acute kidney injury superimposed on chronic kidney disease: Cr elevated at 1.91 (baseline ~1.2-1.4), has CKD III at baseline -In setting of poor PO intake, infection -Gentle IV fluids, hold lisinopril and lasix -Creatinine has been improving and fluctuating (5) Abnormal gall bladder diagnostic imaging: CT abd/pelvis with evidence of gallbladder distention and cindy-cholecystic stranding concerning for cholecystitis -Unremarkable abdominal exam -Appreciate surgery input and recommendation -HIDA scan did not show any evidence of acute cholecystitis (6) Abnormal CXR: CXR with evidence of infiltrate at R base -Given empiric dose of Levaquin in ED -H/o URI 4 months ago, continues to have intermittent cough -No productive sputum, wheezing or SOB. O2 saturation 99% on RA -Receiving Zosyn, follow blood and sputum cultures -Doubt any pneumonia (7) Diabetes mellitus, type II: A1c of 7.9 in August 2018 -Hold home metformin -SSI while in-patient -BSG AC HS (8) Hypertension: Normotensive -Continue atenolol -Holding Lisinopril, Lasix in setting of ELVIN (9) COPD (chronic obstructive pulmonary disease): Continue Advair, Albuterol PRN No acute exacerbation (10) SUNDAY (iron deficiency anemia): Hgb of 12.6 (baseline hgb 12-13) -Has not been taking iron supplement due to constipation -Encouraged to restart, will also add Colace 100mg daily, PRN Miralax (11) HLD (hyperlipidemia): Continue statin DVT Ppx: SCDs in setting of hematuria Code status: FULL per discussion with patient PCP: Radha Dispo: Admitted to med tele. Discharge planning ordered (83yo and lives alone). PT/OT evaluations ordered. (12) Abnormal computed tomography of abdomen and pelvis: .The gallbladder is distended. The gallbladder wall appears thickened and there is pericholecystic stranding. The appearance is concerning for acute cholecystitis. Clinical and laboratory correlation will be required. Ultrasound could be considered for further assessment if clinically warranted. HIDA scan ruled out acute cholecystitis The bladder is circumferentially thick-walled and there is pericystic inflammation. Correlate clinically and with urinalysis for evidence of cystitis. Has right pyelonephritis with hydronephrosis but no calculus identified We need to have outpatient urology appointment on discharge Cirrhotic liver morphology. Findings are consistent with chronic pancreatitis. 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 Follow-up with surgery as an outpatient There is a large fat-containing left-sided lumbar hernia. Nonsymptomatic Subjective 09/30 Patient seen and examined medical telemetry unit This is an 83-year-old male with a PMH of DM II, HTN, HLD, CKD III, COPD and iron deficiency anemia who presents with weakness and chills x 4 days He was admitted with right flank pain with right hydronephrosis noted to have an abnormal CT of the abdomen and pelvis as noted below He has been feeling a lot better today Denies any significant symptoms 10/01 Patient is seen and examined. Remains asymptomatic but blood culture came back positive for staph aureus MSSA Denies any symptoms as of today 10/02 The patient was seen and examined in telemetry unit He was transferred to telemetry last night with Thelma santana with RVR Denies any symptoms this morning Electrolytes have been replaced 10/03 Patient was seen and examined in presence of the daughter Still noted to have increased heart rate especially on ambulation Cardizem drip has been and beta-marvin doses have been increased Heparin continued and Coumadin added Not a candidate for DOAC 10/04 Patient is seen and examined in telemetry unit Heart rate seems to be under control Is off Cardizem drip Denies any symptoms Review of Systems Review of Systems: All systems reviewed and are unremarkable except as noted below Neurologic: Generalized weakness Physical Exam Physical Exam: No apparent distress at rest Constitutional: well developed and well nourished; no acute distress Eyes: PERRL, conjunctivae normal, anicteric sclerae ENMT: external ear and nose normal, oropharynx normal Neck: trachea midline, no thyromegaly Respiratory: normal respiratory effort, lungs clear to auscultation Cardiovascular: RRR, no murmur, no edema Gastrointestinal (Abdomen): Inspection/Auscultation: abdomen normal to inspection and normal bowel sounds Percussion/Palpation: + abdomen tender (Mildly tender right renal angle) Musculoskeletal: Extremities: extremities normal to inspection Skin: no rashes, warm and dry Neurologic: PERRL, EOMI, accommodation nl, no face palsy, no dysarthria Lymphatic: no cervical or axillary lymphadenopathy Results & Data Vital Signs (Past 12 Hours) Vital Signs Temp Pulse Resp BP Pulse Ox 10/04/18 15:53 36.9 C 69 18 129/73 95 10/04/18 07:50 36.7 C 73 18 153/59 H 95 Laboratory Results Short CBC 10/04/18 Range/Units 06:39 WBC 12.73 H (4.8-10.8) K/uL Hgb 12.5 L (14.0-18.0) g/dL Hct 35.9 L (42-52) % Plt Count 304 (130-400) K/uL [facility] 10/04/18 06:39 Sodium 138 Potassium 3.9 Chloride 106 Carbon Dioxide 25 BUN 21 H Creatinine 1.68 H Glucose 196 H Calcium 9.3 Medications Administered Current Inpatient Medications Acetaminophen (Tylenol) 650 mg PO Q4H PRN PRN Reason: Pain or Fever Stop: 10/29/18 17:31 Albuterol (Ventolin Hfa) 2 puffs INH QID PRN PRN Reason: Shortness Of Breath Or Wheezin Atorvastatin Calcium (Lipitor) 10 mg PO DAILY [facility] Stop: 10/30/18 08:59 Last Admin: 10/04/18 08:05 Dose: 10 mg Documented by: Dextrose (Dextrose 50%) 25 - 50 ml IV UD PRN; Protocol PRN Reason: Hypoglycemia Protocol Stop: 10/29/18 17:31 Diltiazem HCl (Cardizem Cd) 120 mg PO QAM [facility] Stop: 11/02/18 13:14 Last Admin: 10/04/18 08:05 Dose: 120 mg Documented by: Docusate Sodium (Colace) 100 mg PO DAILY [facility] Stop: 10/29/18 18:14 Last Admin: 10/04/18 08:05 Dose: Not Given Documented by: Ferrous Sulfate (Feosol) 325 mg PO DAILY [facility] Stop: 10/30/18 08:59 Last Admin: 10/04/18 08:05 Dose: 325 mg Documented by: Glucagon (Glucagen) 1 mg SQ UD PRN; Protocol PRN Reason: Hypoglycemia Protocol Stop: 10/29/18 17:31 Glucose (Glucose 40%) 15 - 30 gm PO UD PRN; Protocol PRN Reason: Hypoglycemia Protocol Stop: 10/29/18 17:31 Glucose (Dex4 Glucose) 4 - 8 tabs PO UD PRN; Protocol PRN Reason: Hypoglycemia Protocol Stop: 10/29/18 17:31 Heparin Sodium/Dextrose (Heparin Sodium/Dextrose) 25,000 units in 500 mls @ 22 mls/hr IV .[id number] [facility]; Protocol Stop: 10/31/18 22:29 Last Titration: 10/04/18 09:00 Dose: 1,100 units/hr, 22 mls/hr Documented by: Diltiazem HCl 125 mg/ Dextrose 125 mls @ 5 mls/hr IV .Q24H [facility]; Protocol Stop: 10/31/18 23:29 Last Titration: 10/04/18 07:06 Dose: 5 mg/hr, 5 mls/hr Documented by: Cefazolin Sodium (Ancef 1000mg) 1,000 mg in 7.5 mls @ 2.5 mls/min IV Q12H [facility]; Protocol Stop: 10/15/18 11:59 Last Admin: 10/04/18 12:09 Dose: 2.5 mls/min Documented by: Insulin Aspart (Novolog Flexpen) 0 units SC ACHS [facility] Stop: 10/29/18 20:59 Last Admin: 10/04/18 12:10 Dose: 8 units Documented by: Metoprolol Tartrate (Lopressor) 25 mg PO TID [facility] Stop: 11/02/18 13:59 Last Admin: 10/04/18 14:00 Dose: 25 mg Documented by: Miscellaneous (Carbohydrates For Hypoglycemia) 15 - 30 gm PO UD PRN PRN Reason: Hypoglycemia Treatment Stop: 10/29/18 17:31 Multivitamins (Multivitamin Tab) 1 tab PO DAILY [facility] Stop: 10/30/18 08:59 Last Admin: 10/04/18 08:06 Dose: 1 tab Documented by: Polyethylene Glycol (Miralax Powder Packet) 17 gm PO DAILY PRN PRN Reason: Constipation Stop: 10/29/18 17:31 Fluticasone/Salmeterol (Advair Diskus 100/50) 1 puffs INH BID [facility] Stop: 10/29/18 20:59 Last Admin: 10/04/18 08:04 Dose: 1 puffs Documented by: Warfarin Sodium (Coumadin) 4 mg PO DAILY@1600 [facility] Stop: 11/02/18 15:59 Last Admin: 10/03/18 16:40 Dose: 4 mg Documented by:
[2018-10-04] MEDS: WARFARIN SOD 4 MG TAB PO SCH (16:44)
--- NOTE | 2018-10-04 17:25 | Cardiology Consultation ---
Date of Consultation October 04, 2018 Assessment & Plan (1) Atrial fibrillation with RVR: EKG performed this morning 10/04/2018 818 revealed atrial fibrillation and bifascicular block pattern. Telemetry reveals appears to be occasional sinus beats. Patient is now off of IV diltiazem. Continue rate control with metoprolol tartrate 25 mg 3 times daily and diltiazem CD 120 mg daily. Continue heparin infusion. INR is 1.2. Coumadin initiated 10/03, will administer 4 mg again today and check INR tomorrow. (2) Bacteremia due to methicillin susceptible Staphylococcus aureus (MSSA): Repeat blood cultures without growth thus far. Continue antibiotics. History of Present Illness Attending Physician: Gin Reyes MD History of Present Illness Chief complaint: Follow-up tachycardia Subjective: Patient sitting the bedside chair. Comfortable. He feels he is getting his strength back. Allergies Allergy/AdvReac Type Severity Reaction Status Date / Time No Known Allergies Allergy Verified 09/29/18 11:58 Home Medications Home Medications Medication Instructions Recorded Confirmed Type albuterol sulfate [ProAir HFA] 2 puff INHALATION QID PRN 09/29/18 09/29/18 History aspirin-dipyridamole [Aggrenox] 1 cap PO BID 09/29/18 09/29/18 History atenolol 25 mg PO DAILY 09/29/18 09/29/18 History atorvastatin 10 mg PO DAILY 09/29/18 09/29/18 History ferrous sulfate 1 tab PO DAILY 09/29/18 09/29/18 History fluticasone propion-salmeterol 1 puff INHALATION BID 09/29/18 09/29/18 History [Advair Diskus] furosemide 40 mg PO DAILY 09/29/18 09/29/18 History lisinopril 2.5 mg PO DAILY 09/29/18 09/29/18 History metformin 500 mg PO BID 09/29/18 09/29/18 History multivitamin 1 tab PO DAILY 09/29/18 09/29/18 History potassium chloride [Klor-Con M10] 10 meq PO BID 09/29/18 09/29/18 History Patient History Medical History SUNDAY (iron deficiency anemia) (Chronic) CKD (chronic kidney disease), stage III (Chronic) COPD (chronic obstructive pulmonary disease) (Chronic) HLD (hyperlipidemia) (Chronic) Diabetes mellitus, type II (Chronic) Hypertension (Chronic) Surgical History History of ankle surgery (Resolved) History of hernia repair (Resolved) Family History Other Diabetes Social History Preferred Language: [place] Communication Ability: Effective Manager Purchasing Required: No Beliefs That Will Affect Care: None Current Living Situation: Alone Other Information That Helps Us Care for You: No Feels Safe at Home: Yes Safety Concerns: Feels Safe At This Time Smoking Status: Former smoker Do You Dip or Chew Tobacco: No Second Hand Exposure: No Tobacco Cessation Education Requested by Patient: No Hx Alcohol Use: No Hx Substance Use: No Physical Exam Physical Exam: General: no acute distress and stated age Eyes: conjunctiva are pink and non-injected, sclera clear Neck: normal jugular venous pulse, no hepatojugular reflux Chest: normal shape and normal respiratory effort Lungs: clear to auscultation and percussion Cardiac Exam: -Irregular rhythm, less tachycardic, no murmur Abdomen: abdomen soft, non-tender, no abnormal masses and no hepatosplenomegaly Extremities: no edema and no cyanosis Neuro:awake, coversant, follows commands, no focal motor deficits Results & Data Vital Signs (Past 12 Hours) Vital Signs Temp Pulse Resp BP Pulse Ox 10/04/18 15:53 36.9 C 69 18 129/73 95 10/04/18 07:50 36.7 C 73 18 153/59 H 95
--- NOTE | 2018-10-04 21:04 | Infectious Disease Progress Nt ---
Date of Service October 04, 2018 Assessment & Plan (1) Bacteremia due to methicillin susceptible Staphylococcus aureus (MSSA): 83-year-old male with MSSA bacteremia, with evidence of pyelonephritis. Patient will be continued on IV Ancef, will require at least 14 days of IV antibiotics given bacteremia. No evidence of spinal infection on MRI scanning. Will follow. (2) Pyelonephritis: Subjective Patient seen in follow-up for staph aureus bacteremia. Offers no new complaints today. No shortness of breath or chest pain. Remains afebrile. Continues to tolerate Ancef. Review of Systems Review of Systems: All systems reviewed & are unremarkable except as noted in HPI & below Physical Exam Constitutional: WD/WN, vitals as above comfortable; no acute distress Eyes: PERRL, conjunctivae normal, anicteric sclerae ENMT: external ear and nose normal, oropharynx normal Neck: trachea midline, no thyromegaly neck nontender Respiratory: normal respiratory effort, lungs clear to auscultation normal percussion; does not use accessory muscles Cardiovascular: Rate/Rhythm: regular rate and regular rhythm Heart Sounds: normal S1 and normal S2; no gallop, no murmur and no cardiac rub Vessels: normal peripheral pulses; no JVD Gastrointestinal (Abdomen): normal bowel sounds, soft, nontender, no hepatosplenomegaly Musculoskeletal: no cyanosis or clubbing, extremities motor strength 5/5 Spine: thoracic spine normal to inspection and lumbar spine normal to inspection; no cervical spinal tenderness Skin: no rashes, warm and dry normal turgor; no lesions Neurologic: patellar DTR's 2+ bilat, sensation intact no focal motor deficits Psychiatric: A+Ox3, euthymic affect Orientation: cooperative Lymphatic: no cervical or axillary lymphadenopathy no inguinal lymphaden opathy Results & Data Vital Signs (Past 12 Hours) Vital Signs Temp Pulse Resp BP Pulse Ox 10/04/18 19:30 37.0 C 84 19 125/72 95 10/04/18 15:53 36.9 C 69 18 129/73 95 Laboratory Results Short CBC 10/04/18 Range/Units 06:39 WBC 12.73 H (4.8-10.8) K/uL Hgb 12.5 L (14.0-18.0) g/dL Hct 35.9 L (42-52) % Plt Count 304 (130-400) K/uL [facility] 10/04/18 06:39 Sodium 138 Potassium 3.9 Chloride 106 Carbon Dioxide 25 BUN 21 H Creatinine 1.68 H Glucose 196 H Calcium 9.3 Diagnostic Findings Microbiology 09/29/18 17:26 Blood Blood Culture - Preliminary Staphylococcus aureus 09/29/18 17:32 Blood Blood Culture - Final Staphylococcus aureus 09/29/18 12:10 Urine,Clean Catch Urine Culture - Final Staphylococcus aureus Staphylococcus aureus#2
[2018-10-05] MEDS: CEFAZOLIN 1000MG 1,000 MG/7.5 ML SYR IV SCH ×2 (00:48→12:47)
[2018-10-05] MEDS: Heparin Adult LOW DOSE Wt-Based Dextrose 5% 25,000 units/500 mL IV SCH (04:23)
[2018-10-05] MEDS: FLUTICASONE/SALMETEROL 100/50 (ADVAIR) 14 PUFF/1 INHALER INH SCH ×2 (08:03→20:29)
[2018-10-05] MEDS: INSULIN ASPART 100 UNITS/ML 3 ML PEN SC SCH ×4 (08:04→20:29)
[2018-10-05] MEDS: dilTIAZem HCL 120 MG CAPCR PO SCH (08:05)
[2018-10-05] MEDS: FERROUS SULFATE 325 MG TAB PO SCH (08:06)
[2018-10-05] MEDS: ATORVASTATIN 10 MG TAB PO SCH (08:06)
[2018-10-05] MEDS: METOPROLOL TARTRATE 25 MG TAB PO SCH ×2 (08:06→13:37)
[2018-10-05] MEDS: MULTIVITAMIN TAB PO SCH (08:06)
[2018-10-05] MEDS: DOCUSATE SODIUM 100 MG CAP PO SCH (08:06)
[2018-10-05 09:02] LABS: INR 1.8 (0.9-1.1); Partial Thromboplastin Ratio 1.7
[2018-10-05 09:04] LABS: BUN Creatinine Ratio 12.1 (10-20); Calcium 9.3 mg/dl (8.5-10.1); Creatinine Clr Calc Pharmacy 32.3 ml/min; Est GFR (African American) 48.1; Est GFR (Non-African American) 41.5; Magnesium 2.1 mg/dl (1.8-2.4); Potassium 3.8 mmol/L (3.5-5.1)
[2018-10-05 09:09] LABS: Partial Thromboplastin Time 45.4 Seconds (21.0-31.0)
[2018-10-05] MEDS ORDERED: HEPARIN IV BOLUS 3,000 UNITS in SYRINGE 0 ML IV ONE (09:30)
--- NOTE | 2018-10-05 11:57 | Hospitalist Progress Note ---
Date of Service October 05, 2018 Assessment & Plan (1) Atrial fibrillation with RVR: He has history of right bundle branch block He developed A. fib with RVR last night and was transferred to telemetry Has been on intravenous Cardizem and heparin for now Appreciate cardiology input and recommendations Lopressor has been started Denies any symptoms Rate is not yet controlled and has been on Cardizem drip and beta-marvin Continue heparin and Coumadin was added Remains free of any symptoms Rate is not yet totally controlled Cardizem drip has been off and now continuing with beta-marvin Heart remains stable on beta-marvin Likely go home tomorrow INR is 1.8 today and will continue heparin and Coumadin for today (2) Bacteremia due to methicillin susceptible Staphylococcus aureus (MSSA): Blood cultures grew staph aureus with MSSA Appreciate ID input and recommendation Echo has been ordered to rule out vegetation MRI of the lumbar and thoracic spine will be done to rule out any infective source/vegetation-have been negative for any discitis and osteomyelitis Antibiotic has been changed to cefazolin We will continue current antibiotics Will need IV antibiotic for a total of 2 weeks in total Will need PICC line and IV Ancef to continue 7 days following discharge tomorrow (3) Pyelonephritis: This is an 83-year-old male with a PMH of DM II, HTN, HLD, CKD III, COPD and iron deficiency anemia who presents with weakness and chills x 4 days and was found to have acute pyelonephritis and acute kidney injury. -Afebrile, leukocytosis of 20.75. Non-toxic appearance, vital signs stable -CT abdomen/pelvis with pericystic inflammation, mild to moderate right-sided hydronephrosis with urothelial thickening and perinephric stranding consistent with pyelonephritis -UA with evidence of infection and 3+ urine blood, -urine culture -shows staph likely contaminant -Blood culture-pending -Given dose of Rocephin x 1 in ED. Will continue coverage with Zosyn, to also cover for possible PNA -Consider urology consult if no clinical improvement -Gentle IV fluids -Clinically better and will continue current medications -We will continue current antibiotic -Denies any back pain and/or flank pain -Clinically a lot better -As above (4) Acute kidney injury superimposed on chronic kidney disease: Cr elevated at 1.91 (baseline ~1.2-1.4), has CKD III at baseline -In setting of poor PO intake, infection -Gentle IV fluids, hold lisinopril and lasix -Creatinine has been improving and fluctuating (5) Abnormal gall bladder diagnostic imaging: CT abd/pelvis with evidence of gallbladder distention and cindy-cholecystic stranding concerning for cholecystitis -Unremarkable abdominal exam -Appreciate surgery input and recommendation -HIDA scan did not show any evidence of acute cholecystitis (6) Abnormal CXR: CXR with evidence of infiltrate at R base -Given empiric dose of Levaquin in ED -H/o URI 4 months ago, continues to have intermittent cough -No productive sputum, wheezing or SOB. O2 saturation 99% on RA -Receiving Zosyn, follow blood and sputum cultures -Doubt any pneumonia (7) Diabetes mellitus, type II: A1c of 7.9 in August 2018 -Hold home metformin -SSI while in-patient -BSG AC HS (8) Hypertension: Normotensive -Continue atenolol -Holding Lisinopril, Lasix in setting of ELVIN (9) COPD (chronic obstructive pulmonary disease): Continue Advair, Albuterol PRN No acute exacerbation (10) SUNDAY (iron deficiency anemia): Hgb of 12.6 (baseline hgb 12-13) -Has not been taking iron supplement due to constipation -Encouraged to restart, will also add Colace 100mg daily, PRN Miralax (11) HLD (hyperlipidemia): Continue statin DVT Ppx: SCDs in setting of hematuria Code status: FULL per discussion with patient PCP: Radha Dispo: Admitted to [facility]. Discharge planning ordered (83yo and lives alone). PT/OT evaluations ordered. (12) Abnormal computed tomography of abdomen and pelvis: .The gallbladder is distended. The gallbladder wall appears thickened and there is pericholecystic stranding. The appearance is concerning for acute cholecystitis. Clinical and laboratory correlation will be required. Ultrasound could be considered for further assessment if clinically warranted. HIDA scan ruled out acute cholecystitis The bladder is circumferentially thick-walled and there is pericystic inflammation. Correlate clinically and with urinalysis for evidence of cystitis. Has right pyelonephritis with hydronephrosis but no calculus identified We need to have outpatient urology appointment on discharge Cirrhotic liver morphology. Findings are consistent with chronic pancreatitis. 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 Follow-up with surgery as an outpatient There is a large fat-containing left-sided lumbar hernia. Nonsymptomatic Discussed with the daughter likely TO be discharged tomorrow Subjective 09/30 Patient seen and examined medical telemetry unit This is an 83-year-old male with a PMH of DM II, HTN, HLD, CKD III, COPD and iron deficiency anemia who presents with weakness and chills x 4 days He was admitted with right flank pain with right hydronephrosis noted to have an abnormal CT of the abdomen and pelvis as noted below He has been feeling a lot better today Denies any significant symptoms 10/01 Patient is seen and examined. Remains asymptomatic but blood culture came back positive for staph aureus MSSA Denies any symptoms as of today 10/02 The patient was seen and examined in telemetry unit He was transferred to telemetry last night with Thelma santana with RVR Denies any symptoms this morning Electrolytes have been replaced 10/03 Patient was seen and examined in presence of the daughter Still noted to have increased heart rate especially on ambulation Cardizem drip has been and beta-marvin doses have been increased Heparin continued and Coumadin added Not a candidate for DOAC 10/04 Patient is seen and examined in telemetry unit Heart rate seems to be under control Is off Cardizem drip Denies any symptoms 10/05 Patient was seen and examined in telemetry unit He is off Cardizem drip and on beta-marvin Monitor is showing in and out of sinus rhythm EKG still showing atrial fibrillation Patient remains stable without any symptoms Review of Systems Constitutional: + weakness Gastrointestinal: + heartburn and + problem reported (Right flank pain is better) Musculoskeletal: + myalgia Neurologic: + generalized weakness Physical Exam Physical Exam: No apparent distress at rest and sitting on a chair Constitutional: well developed and well nourished; no acute distress Eyes: PERRL, conjunctivae normal, anicteric sclerae ENMT: external ear and nose normal, oropharynx normal Neck: trachea midline, no thyromegaly Respiratory: normal respiratory effort, lungs clear to auscultation Cardiovascular: RRR, no murmur, no edema Gastrointestinal (Abdomen): Inspection/Auscultation: abdomen normal to inspection and normal bowel sounds Percussion/Palpation: + abdomen tender (Mildly tender right renal angle) Musculoskeletal: Extremities: extremities normal to inspection Skin: no rashes, warm and dry Neurologic: PERRL, EOMI, accommodation nl, no face palsy, no dysarthria Lymphatic: no cervical or axillary lymphadenopathy Results & Data Vital Signs (Past 12 Hours) Vital Signs Temp Pulse Pulse Resp BP Pulse Ox 10/05/18 10:53 36.7 C 90 19 115/78 96 10/05/18 07:17 36.7 C 81 18 137/74 92 10/05/18 04:18 36.6 C 92 H 18 147/76 H 93 10/05/18 01:59 76 Laboratory Results [facility] 10/05/18 08:08 Sodium 138 Potassium 3.8 Chloride 105 Carbon Dioxide 24 BUN 18 Creatinine 1.51 H Glucose 210 H Calcium 9.3 Medications Administered Current Inpatient Medications Acetaminophen (Tylenol) 650 mg PO Q4H PRN PRN Reason: Pain or Fever Stop: 10/29/18 17:31 Albuterol (Ventolin Hfa) 2 puffs INH QID PRN PRN Reason: Shortness Of Breath Or Wheezin Atorvastatin Calcium (Lipitor) 10 mg PO DAILY ANTONELLA Stop: 10/30/18 08:59 Last Admin: 10/05/18 08:06 Dose: 10 mg Documented by: Dextrose (Dextrose 50%) 25 - 50 ml IV UD PRN; Protocol PRN Reason: Hypoglycemia Protocol Stop: 10/29/18 17:31 Diltiazem HCl (Cardizem Cd) 120 mg PO QAM ANTONELLA Stop: 11/02/18 13:14 Last Admin: 10/05/18 08:05 Dose: 120 mg Documented by: Docusate Sodium (Colace) 100 mg PO DAILY [facility] Stop: 10/29/18 18:14 Last Admin: 10/05/18 08:06 Dose: Not Given Documented by: Ferrous Sulfate (Feosol) 325 mg PO DAILY [facility] Stop: 10/30/18 08:59 Last Admin: 10/05/18 08:06 Dose: 325 mg Documented by: Glucagon (Glucagen) 1 mg SQ UD PRN; Protocol PRN Reason: Hypoglycemia Protocol Stop: 10/29/18 17:31 Glucose (Glucose 40%) 15 - 30 gm PO UD PRN; Protocol PRN Reason: Hypoglycemia Protocol Stop: 10/29/18 17:31 Glucose (Dex4 Glucose) 4 - 8 tabs PO UD PRN; Protocol PRN Reason: Hypoglycemia Protocol Stop: 10/29/18 17:31 Heparin Sodium/Dextrose (Heparin Sodium/Dextrose) 25,000 units in 500 mls @ 23 mls/hr IV .[id number] [facility]; Protocol Stop: 10/31/18 22:29 Last Titration: 10/05/18 09:14 Dose: 1,150 units/hr, 23 mls/hr Documented by: Diltiazem HCl 125 mg/ Dextrose 125 mls @ 0 mls/hr IV .Q0M [facility]; Protocol Stop: 10/31/18 23:29 Last Titration: 10/05/18 06:54 Dose: 0 mg/hr, 0 mls/hr Documented by: Cefazolin Sodium (Ancef 1000mg) 1,000 mg in 7.5 mls @ 2.5 mls/min IV Q12H [facility]; Protocol Stop: 10/15/18 11:59 Last Admin: 10/05/18 00:48 Dose: 2.5 mls/min Documented by: Insulin Aspart (Novolog Flexpen) 0 units SC ACHS ANTONELLA Stop: 10/29/18 20:59 Last Admin: 10/05/18 08:04 Dose: 5 units Documented by: Metoprolol Tartrate (Lopressor) 25 mg PO TID [facility] Stop: 11/02/18 13:59 Last Admin: 10/05/18 08:06 Dose: 25 mg Documented by: Miscellaneous (Carbohydrates For Hypoglycemia) 15 - 30 gm PO UD PRN PRN Reason: Hypoglycemia Treatment Stop: 10/29/18 17:31 Multivitamins (Multivitamin Tab) 1 tab PO DAILY [facility] Stop: 10/30/18 08:59 Last Admin: 10/05/18 08:06 Dose: 1 tab Documented by: Polyethylene Glycol (Miralax Powder Packet) 17 gm PO DAILY PRN PRN Reason: Constipation Stop: 10/29/18 17:31 Fluticasone/Salmeterol (Advair Diskus 100/50) 1 puffs INH BID [facility] Stop: 10/29/18 20:59 Last Admin: 10/05/18 08:03 Dose: 1 puffs Documented by: Warfarin Sodium (Coumadin) 4 mg PO DAILY@1600 [facility] Stop: 11/02/18 15:59 Last Admin: 10/04/18 16:44 Dose: 4 mg Documented by:
--- NOTE | 2018-10-05 15:43 | Cardiology Progress Note ---
Date of Service October 05, 2018 Assessment & Plan (1) Atrial fibrillation with RVR: EKG and telemetry have shown evidence of both atrial fibrillation as well as possible sinus rhythm with frequent supraventricular contractions. Continue rate control with diltiazem CD 120 mg p.o. daily. Increase metoprolol tartrate from 25 mg 3 times daily to 50 mg twice daily. Continue heparin bridge, continue Coumadin, INR 1.8 today. (2) Bacteremia due to methicillin susceptible Staphylococcus aureus (MSSA): Subjective Chief complaint: Follow-up atrial fibrillation Subjective: Patient sitting bedside chair, comfortable, mild lower extremity edema. Continues to get stronger. Physical Exam Physical Exam: General: no acute distress and stated age Eyes: conjunctiva are pink and non-injected, sclera clear Neck: normal jugular venous pulse, no hepatojugular reflux Chest: normal shape and normal respiratory effort Lungs: clear to auscultation and percussion Cardiac Exam: -Irregular rhythm, no murmurs Abdomen: abdomen soft, non-tender, no abnormal masses and no hepatosplenomegaly Extremities: Trace edema at the sock line Neuro:awake, coversant, follows commands, no focal motor deficits Psych: appropriate affect and insight. Results & Data Vital Signs (Past 12 Hours) Vital Signs Temp Pulse Resp BP Pulse Ox 10/05/18 10:53 36.7 C 90 19 115/78 96 10/05/18 07:17 36.7 C 81 18 137/74 92 10/05/18 04:18 36.6 C 92 H 18 147/76 H 93 Laboratory Results INR today 1.8. PTT 45.4 seconds Creatinine 1.51, down from 1.68 yesterday.
[2018-10-05 16:48] LABS: Partial Thromboplastin Ratio 2.5
[2018-10-05 16:53] LABS: Partial Thromboplastin Time 67.5 Seconds (21.0-31.0)
[2018-10-05] MEDS: WARFARIN SOD 4 MG TAB PO SCH (17:15)
[2018-10-05] MEDS: METOPROLOL TARTRATE 50 MG TAB PO SCH (20:29)
--- NOTE | 2018-10-05 21:28 | Infectious Disease Progress Nt ---
Date of Service October 05, 2018 Assessment & Plan (1) Bacteremia due to methicillin susceptible Staphylococcus aureus (MSSA): 83-year-old male with MSSA bacteremia, with evidence of pyelonephritis. MRI scanning negative for spinal/to space infection. Patient will be continued on IV Ancef, will require at least 14 days of IV antibiotics given bacteremia. Will follow. (2) Pyelonephritis: Subjective Patient seen in follow-up for staph aureus sepsis pyelonephritis. Feeling better, kicking strength. Remains afebrile. Continues to tolerate cefazolin without apparent difficulty. Review of Systems Review of Systems: All systems reviewed & are unremarkable except as noted in HPI & below Physical Exam Constitutional: WD/WN, vitals as above comfortable; no acute distress Eyes: PERRL, conjunctivae normal, anicteric sclerae ENMT: external ear and nose normal, oropharynx normal Neck: trachea midline, no thyromegaly neck nontender Respiratory: normal respiratory effort, lungs clear to auscultation normal percussion; does not use accessory muscles Cardiovascular: Rate/Rhythm: + irregularly irregular Heart Sounds: normal S1 and normal S2; no gallop, no murmur and no cardiac rub Vessels: no JVD Gastrointestinal (Abdomen): normal bowel sounds, soft, nontender, no hepatosplenomegaly Musculoskeletal: no cyanosis or clubbing, extremities motor strength 5/5 Spine: thoracic spine normal to inspection and lumbar spine normal to inspection; no cervical spinal tenderness Skin: no rashes, warm and dry normal turgor; no lesions Neurologic: patellar DTR's 2+ bilat, sensation intact no focal motor deficits Psychiatric: A+Ox3, euthymic affect Orientation: cooperative Lymphatic: no cervical or axillary lymphadenopathy no inguinal lymphadenopathy Results & Data Vital Signs (Past 12 Hours) Vital Signs Temp Pulse Resp BP BP Pulse Ox 10/05/18 19:09 37.8 C H 85 18 140/70 96 10/05/18 16:03 37.3 C 73 16 141/65 H 96 10/05/18 10:53 36.7 C 90 19 115/78 96 Laboratory Results [facility] 10/05/18 08:08 Sodium 138 Potassium 3.8 Chloride 105 Carbon Dioxide 24 BUN 18 Creatinine 1.51 H Glucose 210 H Calcium 9.3 Diagnostic Findings Microbiology 10/03/18 15:41 Blood Blood Culture - Preliminary No growth to date. 10/03/18 15:27 Blood Blood Culture - Preliminary No growth to date. 09/29/18 17:26 Blood Blood Culture - Final Staphylococcus aureus 09/29/18 17:32 Blood Blood Culture - Final Staphylococcus aureus 09/29/18 12:10 Urine,Clean Catch Urine Culture - Final Staphylococcus aureus Staphylococcus aureus#2
[2018-10-05 23:56] LABS: Partial Thromboplastin Ratio 2.3; Partial Thromboplastin Time 62.9 Seconds (21.0-31.0)
[2018-10-06] MEDS: CEFAZOLIN 1000MG 1,000 MG/7.5 ML SYR IV SCH (00:05)
[2018-10-06] MEDS: Heparin Adult LOW DOSE Wt-Based Dextrose 5% 25,000 units/500 mL IV SCH (03:20)
[2018-10-06 07:10] LABS: Hematocrit (blood only) 31.3 % (42-52); Hemoglobin 10.8 g/dL (14.0-18.0); Mean Corpuscular Hgb Conc 34.5 g/dL (32-36); Mean Corpuscular Volume 88.9 fL (80-100); Mean Platelet Volume 10.3 fL (7.4-10.4); Platelet Count 266 K/uL (130-400); RDW Coefficient of Variation 13.9 % (11.5-14.5); RDW Standard Deviation 44.6 fL (36.4-46.3); Red Blood Count 3.52 M/uL (4.7-6.1); White Blood Count 9.55 K/uL (4.8-10.8)
[2018-10-06 07:39] LABS: INR 2.4 (0.9-1.1); Partial Thromboplastin Ratio 2.3; Prothrombin Time 23.5 Seconds (9.0-12.0)
[2018-10-06 07:51] LABS: Partial Thromboplastin Time 63.2 Seconds (21.0-31.0)
[2018-10-06] MEDS: MULTIVITAMIN TAB PO SCH (08:50)
[2018-10-06] MEDS: dilTIAZem HCL 120 MG CAPCR PO SCH (08:50)
[2018-10-06] MEDS: METOPROLOL TARTRATE 50 MG TAB PO SCH (08:50)
[2018-10-06] MEDS: ATORVASTATIN 10 MG TAB PO SCH (08:50)
[2018-10-06] MEDS: FLUTICASONE/SALMETEROL 100/50 (ADVAIR) 14 PUFF/1 INHALER INH SCH (08:50)
[2018-10-06] MEDS: FERROUS SULFATE 325 MG TAB PO SCH (08:51)
[2018-10-06] MEDS: INSULIN ASPART 100 UNITS/ML 3 ML PEN SC SCH ×2 (08:52→12:14)
[2018-10-06] MEDS: DOCUSATE SODIUM 100 MG CAP PO SCH (08:54)
--- NOTE | 2018-10-06 12:20 | Hospitalist Progress Note ---
Date of Service October 06, 2018 Assessment & Plan (1) Atrial fibrillation with RVR: He has history of right bundle branch block He developed A. fib with RVR last night and was transferred to telemetry Has been on intravenous Cardizem and heparin for now Appreciate cardiology input and recommendations Lopressor has been started Denies any symptoms Rate is not yet controlled and has been on Cardizem drip and beta-marvin Continue heparin and Coumadin was added Remains free of any symptoms Rate is not yet totally controlled Cardizem drip has been off and now continuing with beta-marvin Heart remains stable on beta-marvin Likely go home tomorrow INR is 1.8 today and will continue heparin and Coumadin for today Rate is controlled and INR is therapeutic We will discontinue heparin and send him home this afternoon (2) Bacteremia due to methicillin susceptible Staphylococcus aureus (MSSA): Blood cultures grew staph aureus with MSSA Appreciate ID input and recommendation Echo has been ordered to rule out vegetation MRI of the lumbar and thoracic spine will be done to rule out any infective source/vegetation-have been negative for any discitis and osteomyelitis Antibiotic has been changed to cefazolin We will continue current antibiotics Will need IV antibiotic for a total of 2 weeks in total Will need PICC line and IV Ancef to continue 7 days following discharge tomorrow Will have PICC line placed today and will be continued with intravenous ceftriaxone 2 mg/day for 7 days (3) Pyelonephritis: This is an 83-year-old male with a PMH of DM II, HTN, HLD, CKD III, COPD a nd iron deficiency anemia who presents with weakness and chills x 4 days and was found to have acute pyelonephritis and acute kidney injury. -Afebrile, leukocytosis of 20.75. Non-toxic appearance, vital signs stable -CT abdomen/pelvis with pericystic inflammation, mild to moderate right-sided hydronephrosis with urothelial thickening and perinephric stranding consistent with pyelonephritis -UA with evidence of infection and 3+ urine blood, -urine culture -shows staph likely contaminant -Blood culture-pending -Given dose of Rocephin x 1 in ED. Will continue coverage with Zosyn, to also cover for possible PNA -Consider urology consult if no clinical improvement -Gentle IV fluids -Clinically better and will continue current medications -We will continue current antibiotic -Denies any back pain and/or flank pain -Clinically a lot better -As above (4) Acute kidney injury superimposed on chronic kidney disease: Cr elevated at 1.91 (baseline ~1.2-1.4), has CKD III at baseline -In setting of poor PO intake, infection -Gentle IV fluids, hold lisinopril and lasix -Creatinine has been improving and fluctuating -Creatinine has improved a lot and today it is 1.51 (5) Abnormal gall bladder diagnostic imaging: CT abd/pelvis with evidence of gallbladder distention and cindy-cholecystic stranding concerning for cholecystitis -Unremarkable abdominal exam -Appreciate surgery input and recommendation -HIDA scan did not show any evidence of acute cholecystitis (6) Abnormal CXR: CXR with evidence of infiltrate at R base -Given empiric dose of Levaquin in ED -H/o URI 4 months ago, continues to have intermittent cough -No productive sputum, wheezing or SOB. O2 saturation 99% on RA -Receiving Zosyn, follow blood and sputum cultures -Doubt any pneumonia (7) Diabetes mellitus, type II: A1c of 7.9 in August 2018 -Hold home metformin -SSI while in-patient -BSG AC HS (8) Hypertension: Normotensive -Continue atenolol -Holding Lisinopril, Lasix in setting of ELVIN (9) COPD (chronic obstructive pulmonary disease): Continue Advair, Albuterol PRN No acute exacerbation (10) SUNDAY (iron deficiency anemia): Hgb of 12.6 (baseline hgb 12-13) -Has not been taking iron supplement due to constipation -Encouraged to restart, will also add Colace 100mg daily, PRN Miralax (11) HLD (hyperlipidemia): Continue statin DVT Ppx: SCDs in setting of hematuria Code status: FULL per discussion with patient PCP: Radha Dispo: Admitted to [facility]. Discharge planning ordered (83yo and lives alone). PT/OT evaluations ordered. Will discharge home this afternoon (12) Abnormal computed tomography of abdomen and pelvis: .The gallbladder is distended. The gallbladder wall appears thickened and there is pericholecystic stranding. The appearance is concerning for acute cholecystitis. Clinical and laboratory correlation will be required. Ultrasound could be considered for further assessment if clinically warranted. HIDA scan ruled out acute cholecystitis The bladder is circumferentially thick-walled and there is pericystic inflammation. Correlate clinically and with urinalysis for evidence of cystitis. Has right pyelonephritis with hydronephrosis but no calculus identified We need to have outpatient urology appointment on discharge Cirrhotic liver morphology. Findings are consistent with chronic pancreatitis. 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 Follow-up with surgery as an outpatient There is a large fat-containing left-sided lumbar hernia. Nonsymptomatic Discussed with the daughter likely TO be discharged this afternoon Subjective 09/30 Patient seen and examined medical telemetry unit This is an 83-year-old male with a PMH of DM II, HTN, HLD, CKD III, COPD and iron deficiency anemia who presents with weakness and chills x 4 days He was admitted with right flank pain with right hydronephrosis noted to have an abnormal CT of the abdomen and pelvis as noted below He has been feeling a lot better today Denies any significant symptoms 10/01 Patient is seen and examined. Remains asymptomatic but blood culture came back positive for staph aureus MSSA Denies any symptoms as of today 10/02 The patient was seen and examined in telemetry unit He was transferred to telemetry last night with Thelma santana with RVR Denies any symptoms this morning Electrolytes have been replaced 10/03 Patient was seen and examined in presence of the daughter Still noted to have increased heart rate especially on ambulation Cardizem drip has been and beta-marvin doses have been increased Heparin continued and Coumadin added Not a candidate for DOAC 10/04 Patient is seen and examined in telemetry unit Heart rate seems to be under control Is off Cardizem drip Denies any symptoms 10/05 Patient was seen and examined in telemetry unit He is off Cardizem drip and on beta-marvin Monitor is showing in and out of sinus rhythm EKG still showing atrial fibrillation Patient remains stable without any symptoms 10/06 Patient was seen and examined in telemetry unit He denies any symptoms today and ready to go home His heart rate is controlled and INR is therapeutic Review of Systems Constitutional: + weakness Gastrointestinal: + heartburn and + problem reported (Right flank pain is better) Musculoskeletal: + myalgia Neurologic: + generalized weakness Physical Exam Physical Exam: No apparent distress at rest. Sitting on a chair comfortably Constitutional: well developed and well nourished; no acute distress Eyes: PERRL, conjunctivae normal, anicteric sclerae ENMT: external ear and nose normal, oropharynx normal Neck: trachea midline, no thyromegaly Respiratory: normal respiratory effort, lungs clear to auscultation Cardiovascular: RRR, no murmur, no edema Gastrointestinal (Abdomen): Inspection/Auscultation: abdomen normal to in spection and normal bowel sounds Percussion/Palpation: + abdomen tender (Mildly tender right renal angle) Musculoskeletal: Extremities: extremities normal to inspection Skin: no rashes, warm and dry Neurologic: PERRL, EOMI, accommodation nl, no face palsy, no dysarthria Lymphatic: no cervical or axillary lymphadenopathy Results & Data Vital Signs (Past 12 Hours) Vital Signs Temp Pulse Resp BP BP Pulse Ox 10/06/18 11:57 36.7 C 80 17 136/78 92 10/06/18 08:07 37.4 C 81 17 121/60 93 10/06/18 03:45 37.6 C H 72 18 118/68 92 Laboratory Results Short CBC 10/06/18 Range/Units 06:59 WBC 9.55 (4.8-10.8) K/uL Hgb 10.8 L (14.0-18.0) g/dL Hct 31.3 L (42-52) % Plt Count 266 (130-400) K/uL Medications Administered Current Inpatient Medications Acetaminophen (Tylenol) 650 mg PO Q4H PRN PRN Reason: Pain or Fever Stop: 10/29/18 17:31 Albuterol (Ventolin Hfa) 2 puffs INH QID PRN PRN Reason: Shortness Of Breath Or Wheezin Atorvastatin Calcium (Lipitor) 10 mg PO DAILY [facility] Stop: 10/30/18 08:59 Last Admin: 10/06/18 08:50 Dose: 10 mg Documented by: Dextrose (Dextrose 50%) 25 - 50 ml IV UD PRN; Protocol PRN Reason: Hypoglycemia Protocol Stop: 10/29/18 17:31 Diltiazem HCl (Cardizem Cd) 120 mg PO QAM [facility] Stop: 11/02/18 13:14 Last Admin: 10/06/18 08:50 Dose: 120 mg Documented by: Docusate Sodium (Colace) 100 mg PO DAILY [facility] Stop: 10/29/18 18:14 Last Admin: 10/06/18 08:54 Dose: 100 mg Documented by: Ferrous Sulfate (Feosol) 325 mg PO DAILY [facility] Stop: 10/30/18 08:59 Last Admin: 10/06/18 08:51 Dose: 325 mg Documented by: Glucagon (Glucagen) 1 mg SQ UD PRN; Protocol PRN Reason: Hypoglycemia Protocol Stop: 10/29/18 17:31 Glucose (Glucose 40%) 15 - 30 gm PO UD PRN; Protocol PRN Reason: Hypoglycemia Protocol Stop: 10/29/18 17:31 Glucose (Dex4 Glucose) 4 - 8 tabs PO UD PRN; Protocol PRN Reason: Hypoglycemia Protocol Stop: 10/29/18 17:31 Ceftriaxone Sodium 2,000 mg/ (Dextrose) 70 mls @ 100 mls/hr IV DAILY [facility] Stop: 10/20/18 12:59 Insulin Aspart (Novolog Flexpen) 0 units SC ACHS [facility] Stop: 10/29/18 20:59 Last Admin: 10/06/18 12:14 Dose: 6 units Documented by: Metoprolol Tartrate (Lopressor) 50 mg PO BID [facility] Stop: 11/04/18 20:59 Last Admin: 10/06/18 08:50 Dose: 50 mg Documented by: Miscellaneous (Carbohydrates For Hypoglycemia) 15 - 30 gm PO UD PRN PRN Reason: Hypoglycemia Treatment Stop: 10/29/18 17:31 Multivitamins (Multivitamin Tab) 1 tab PO DAILY [facility] Stop: 10/30/18 08:59 Last Admin: 10/06/18 08:50 Dose: 1 tab Documented by: Polyethylene Glycol (Miralax Powder Packet) 17 gm PO DAILY PRN PRN Reason: Constipation Stop: 10/29/18 17:31 Fluticasone/Salmeterol (Advair Diskus 100/50) 1 puffs INH BID [facility] Stop: 10/29/18 20:59 Last Admin: 10/06/18 08:50 Dose: 1 puffs Documented by: Warfarin Sodium (Coumadin) 4 mg PO DAILY@1600 [facility] Stop: 11/02/18 15:59 Last Admin: 10/05/18 17:15 Dose: 4 mg Documented by:
[2018-10-06] MEDS ORDERED: cefTRIAXone SODIUM 2,000 MG in DEXTROSE 5% 50 ML IV SCH (13:00)
--- NOTE | 2018-10-06 13:08 | Cardiology Progress Note ---
Date of Service October 06, 2018 Assessment & Plan (1) Atrial fibrillation with RVR: Review of recent telemetry from yesterday reveals that during his hospital stay he has had both atrial fibrillation letter think is clearly documented on the EKG dated 10/01/2018, as well as sinus rhythm with frequent supraventricular ectopy. Repeat EKG today to document the presence of sinus rhythm which will be helpful for future follow-up. Continue current medications including metoprolol tartrate 50 mg twice daily, diltiazem CD 120 mg daily, and Coumadin for stroke prophylaxis. Stable for discharge from a cardiac perspective once PICC line in place. Follow-up with cardiology in 2 to 4 weeks. Patient needs to establish with the [facility] anticoagulation clinic in [place]. (2) Bacteremia due to methicillin susceptible Staphylococcus aureus (MSSA): Decline placement plan to complete 2-week course of antibiotics. Subjective Chief complaint: Follow-up tachycardia, atrial fibrillation Subjective: Patient seen and examined at the bedside. He was sitting comfortably in the bedside chair. His daughter was keeping him company. Telemetry reveals improved rhythm. This morning he clearly has sinus rhythm with only occasional premature atrial contractions. Review of recent telemetry from yesterday reveals that during his hospital stay he has had both atrial fibrillation letter think is clearly documented on the EKG dated 10/01/2018, as well as sinus rhythm with frequent supraventricular ectopy. Review of Systems Review of Systems: All systems reviewed & are unremarkable except as noted in HPI & below Physical Exam Physical Exam: General: no acute distress and stated age Eyes: conjunctiva are pink and non-injected, sclera clear Neck: normal jugular venous pulse, no hepatojugular reflux Chest: normal shape and normal respiratory effort Lungs: clear to auscultation and percussion Cardiac Exam: - regular heart sounds, no murmurs, rubs, or gallops, no jugular venous distention Abdomen: abdomen soft, non-tender, no abnormal masses and no hepatosplenomegaly Extremities: no edema and no cyanosis Neuro:awake, coversant, follows commands, no focal motor deficits Psych: appropriate affect and insight. Results & Data Vital Signs (Past 12 Hours) Vital Signs Temp Pulse Pulse Resp BP BP Pulse Ox 10/06/18 11:57 36.7 C 80 17 136/78 92 10/06/18 09:30 74 10/06/18 08:07 37.4 C 81 17 121/60 93 10/06/18 03:45 37.6 C H 72 18 118/68 92 Diagnostic Findings Hemoglobin 10.8 Platelet count 266 INR 2.4. Repeat blood cultures on 10/03/2018 with no growth to date. Previous blood culture dated 09/29/2018 revealed sensitive staph aureus
--- NOTE | 2018-10-06 17:13 | Discharge Summary ---
Date of Service October 06, 2018 Admission HPI Per Admitting Provider This is an 83-year-old male with a PMH of DM II, HTN, HLD, CKD III, COPD and iron deficiency anemia who presents with weakness and chills x 4 days. On Saturday, patient developed right-sided flank pain that was sharp in nature with radiation to back. Also endorsed one episode of vomiting, dysuria, chills and generalized weakness. Right flank pain subsided over the weekend but patient continued to feel weak and fatigued, sleeping most of the day. + Low grade fever. Endorses decreased p.o. intake. Daughter took patient to PCP today and UA showed evidence of hematuria as well as infection. Patient was directed to c ome to ED for further evaluation. Found to be hemodynamically stable and afebrile. Leukocytosis of 20.75. UA with evidence of infection. CXR with evidence of infiltrate at R base. Daughter states patient had a cold back in the winter and has had intermittent cough but patient denies productive sputum, wheezing or shortness of breath. CT abdomen/pelvis with pericystic inflammation, mild to moderate right-sided hydronephrosis with urothelial thickening and perinephric stranding consistent with pyelonephritis. Also with gallbladder distention and cindy-cholecystic stranding concerning for cholecystitis. Denies any abdominal pain, flank pain or CVA tenderness. No longer experiencing dysuria. Hematuria noted in PCPs office. Patient lives alone with daughter living only a mile away. Admission Exam Per Admitting Provider Physical Exam: General Appearance: WD/WN, no apparent distress, resting comfortably Head: normocephalic, atraumatic Eyes: normal inspection, PERRL, EOMI ENT: hard of hearing, pharynx normal (dry mucous membranes) Neck: supple, no JVD, no adenopathy Respiratory/Chest: lungs clear to auscultation. No wheezes, rales or rhonci. No respiratory distress or accessory muscle use Cardiovascular: regular rate, rhythm, no murmur, normal peripheral pulses Abdomen/GI: normal bowel sounds, soft, non-tender to palpation, negative Moore's sign Back: No deformities, no vertebral body tenderness to palpation, no CVA tenderness Extremities/Musculoskelatal: normal inspection, no calf tenderness, normal capillary refill, trace pedal edema L>R Neurologic/Psych: alert, normal mood/affect, oriented x 3 Skin: normal color, warm/dry Principal Diagnosis Acute pyelonephritis, MSSA bacteremia, atrial fibrillation Discharge Exam Constitutional well developed and well nourished; no acute distress Eyes PERRL, conjunctivae normal, anicteric sclerae ENMT external ear and nose normal, oropharynx normal Neck trachea midline, no thyromegaly Respiratory normal respiratory effort, lungs clear to auscultation Cardiovascular RRR, no murmur, no edema Gastrointestinal (Abdomen) Inspection/Auscultation: abdomen normal to inspection and normal bowel sounds Percussion/Palpation: + abdomen tender (Mildly tender right renal angle) Musculoskeletal Extremities: extremities normal to inspection Skin no rashes, warm and dry Neurologic PERRL, EOMI, accommodation nl, no face palsy, no dysarthria Lymphatic no cervical or axillary lymphadenopathy Discharge Data Allergies Allergy/AdvReac Type Severity Reaction Status Date / Time No Known Allergies Allergy Verified 09/29/18 11:58 Consultations 09/29/18 15:29 ED Decision to Admit Stat 09/29/18 17:32 Consult Case Management - Discharge Planning Routine Consult General Surgery Routine 10/01/18 07:35 Consult Infectious Diseases Routine 10/02/18 08:00 Consult Cardiology Routine Ordered Studies 09/29/18 12:28 CT abd pelvis wo con Stat 10/01/18 11:40 MR lumbar spine wo con Routine MR thoracic spine wo con Routine Hospital Course (1) Atrial fibrillation with RVR: He has history of right bundle branch block He developed A. fib with RVR last night and was transferred to telemetry Has been on intravenous Cardizem and heparin for now Appreciate cardiology input and recommendations Lopressor has been started Denies any symptoms Rate is not yet controlled and has been on Cardizem drip and beta-marvin Continue heparin and Coumadin was added Remains free of any symptoms Rate is not yet totally controlled Cardizem drip has been off and now continuing with beta-marvin Heart remains stable on beta-marvin Likely go home tomorrow INR is 1.8 today and will continue heparin and Coumadin for today Rate is controlled and INR is therapeutic We will discontinue heparin and send him home this afternoon (2) Bacteremia due to methicillin susceptible Staphylococcus aureus (MSSA): Blood cultures grew staph aureus with MSSA Appreciate ID input and recommendation Echo has been ordered to rule out vegetation MRI of the lumbar and thoracic spine will be done to rule out any infective source/vegetation-have been negative for any discitis and osteomyelitis Antibiotic has been changed to cefazolin We will continue current antibiotics Will need IV antibiotic for a total of 2 weeks in total Will need PICC line and IV Ancef to continue 7 days following discharge tomorrow Will have PICC line placed today and will be continued with intravenous ceftriaxone 2 mg/day for 7 days (3) Pyelonephritis: This is an 83-year-old male with a PMH of DM II, HTN, HLD, CKD III, COPD and iron deficiency anemia who presents with weakness and chills x 4 days and was found to have acute pyelonephritis and acute kidney injury. -Afebrile, leukocytosis of 20.75. Non-toxic appearance, vital signs stable -CT abdomen/pelvis with pericystic inflammation, mild to moderate right-sided hydronephrosis with urothelial thickening and perinephric stranding consistent with pyelonephritis -UA with evidence of infection and 3+ urine blood, -urine culture -shows staph likely contaminant -Blood culture-pending -Given dose of Rocephin x 1 in ED. Will continue coverage with Zosyn, to also cover for possible PNA -Consider urology consult if no clinical improvement -Gentle IV fluids -Clinically better and will continue current medications -We will continue current antibiotic -Denies any back pain and/or flank pain -Clinically a lot better -As above (4) Acute kidney injury superimposed on chronic kidney disease: Cr elevated at 1.91 (baseline ~1.2-1.4), has CKD III at baseline -In setting of poor PO intake, infection -Gentle IV fluids, hold lisinopril and lasix -Creatinine has been improving and fluctuating -Creatinine has improved a lot and today it is 1.51 (5) Abnormal gall bladder diagnostic imaging: CT abd/pelvis with evidence of gallbladder distention and cindy-cholecystic stranding concerning for cholecystitis -Unremarkable abdominal exam -Appreciate surgery input and recommendation -HIDA scan did not show any evidence of acute cholecystitis (6) Abnormal CXR: CXR with evidence of infiltrate at R base -Given empiric dose of Levaquin in ED -H/o URI 4 months ago, continues to have intermittent cough -No productive sputum, wheezing or SOB. O2 saturation 99% on RA -Receiving Zosyn, follow blood and sputum cultures -Doubt any pneumonia (7) Diabetes mellitus, type II: A1c of 7.9 in August 2018 -Hold home metformin -SSI while in-patient -BSG AC HS (8) Hypertension: Normotensive -Continue atenolol -Holding Lisinopril, Lasix in setting of ELVIN (9) COPD (chronic obstructive pulmonary disease): Continue Advair, Albuterol PRN No acute exacerbation (10) SUNDAY (iron deficiency anemia): Hgb of 12.6 (baseline hgb 12-13) -Has not been taking iron supplement due to constipation -Encouraged to restart, will also add Colace 100mg daily, PRN Miralax (11) HLD (hyperlipidemia): Continue statin DVT Ppx: SCDs in setting of hematuria Code status: FULL per discussion with patient PCP: Radha [facility] Discharge [facility] ordered (83yo and lives alone). PT/OT evaluations ordered. Will discharge home this afternoon (12) Abnormal computed tomography of abdomen and pelvis: .The gallbladder is distended. The gallbladder wall appears thickened and there is pericholecystic stranding. The appearance is concerning for acute cholecystitis. Clinical and laboratory correlation will be required. Ultrasound could be considered for further assessment if clinically warranted. HIDA scan ruled out acute cholecystitis The bladder is circumferentially thick-walled and there is pericystic inflammation. Correlate clinically and with urinalysis for evidence of cystitis. Has right pyelonephritis with hydronephrosis but no calculus identified We need to have outpatient urology appointment on discharge Cirrhotic liver morphology. Findings are consistent with chronic pancreatitis. 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 Follow-up with surgery as an outpatient There is a large fat-containing left-sided lumbar hernia. Nonsymptomatic Discussed with the daughter likely TO be discharged this afternoon Total Time Total Time Spent Total Time Spent (In Minutes): 40 minutes Total Time Includes: Examination of the Patient, Discharge Planning, Medication Reconciliation and Communication With Other Providers Discharge Plan Discharge Items Patient Disposition: Home - Home Health Services Reason For Visit: PYELONEPHRITIS Discharge Diagnosis: Acute pyelonephritis, MSSA bacteremia, atrial fibrillation Condition: Good Discharge Goals: Decrease discomfort, Improve function and Increase independence Activity: Resume your previous activity Non-emergency contact: Primary Care Provider Call non-emergency contact if: you have any medication questions and your symp toms worsen Follow-up/Referrals: Noreen Garcia DO [Primary Care Provider] - 10/10/18 1:00 pm (Cardiology will call with appointment and coagulation clinic has been notified. His Lasix has been discontinued. He may need this in future. He would also need to have an outpatient urology appointment for an abnormal CAT scan findings) Diet: Heart Healthy Fluids: 1800ml (7 cups) Addtl Provider Instructions: Please take precaution to avoid falls. His furosemide has been discontinued. He may need that in future. Prescriptions: New warfarin [Coumadin] 4 mg Tablet 4 mg PO DAILY@1600 30 Days Qty: 30 RF: 0 metoprolol tartrate 50 mg Tablet 50 mg PO BID 30 Days Qty: 60 RF: 0 diltiazem HCl 120 mg Capsule,Extended Release 24hr 120 mg PO QAM 30 Days Qty: 30 RF: 0 ceftriaxone 1 gram recon soln 2 gm IV DAILY Qty: 7 RF: 0 Continued multivitamin Tablet 1 tab PO DAILY RF: 0 metformin 500 mg tablet 500 mg PO BID RF: 0 atorvastatin 10 mg tablet 10 mg PO DAILY RF: 0 fluticasone propion-salmeterol [Advair Diskus] 100-50 mcg/dose blister with device 1 puff inhalation BID RF: 0 ferrous sulfate 325 mg (65 mg iron) Tablet 1 tab PO DAILY RF: 0 albuterol sulfate [ProAir HFA] 90 mcg/actuation HFA aerosol inhaler 2 puff inhalation QID PRN (Reason: Shortness Of Breath Or Wheezing) RF: 0 Discontinued furosemide 40 mg tablet 40 mg PO DAILY RF: 0 aspirin-dipyridamole [Aggrenox] 25-200 mg Capsule, Er Multiphase 12 Hr 1 cap PO BID RF: 0 atenolol 25 mg tablet 25 mg PO DAILY RF: 0 lisinopril 2.5 mg tablet 2.5 mg PO DAILY RF: 0 potassium chloride [Klor-Con M10] 10 mEq tablet,ER particles/crystals 10 meq PO BID RF: 0 Stand-Alone Forms: [facility] Discharge Orders: Discharge Order (Routine); Ordered 10/06/18 Ordered By: Gin Reyes Admission Data Admit Date/Time: 09/29/18 16:31 Attending Provider: Amy,Manabendra Admit Provider: Regina Farley Primary Care Provider: Noreen Garcia Other Providers: Regina Farley ; Morris Loaiza. ; Myra Valerio ; Da Galvan ; Uri Schreiber ; Anthony Leal ; Gaston Garcia ; Hernán Matt ; Kevin Cevallos ; Kylie Newman ; Katelynn Downs Service: Telemetry Other Interventions: Discharge Summary Assessment (RN) Last Done: 10/06/18 14:48 DC Date/Time DO NOT enter until pt leaves facility: 10/06/18 16:23
== END 2018-10-06 16:23 | disposition home health service (06) | DRG 872 ==
LOC: ED 11:40 → 2N 16:31 → 2S 10-02 00:37